=== PATIENT | female | born 1985 | race Caucasian/White ===

== ENCOUNTER 2016-04-17 13:49 | Emergency (ER) | payer MEDICAID, OTHER ==
[2016-04-17 14:05] VITALS: BP 123/95
--- NOTE | 2016-04-17 14:22 | UC ---
Breast Complaint - HPI Summary HPI Summary: complaint of lump in left breast noticed it 3 days ago feels like it is moving and entire breast is painful pain increases with movement not currently LMP 04/15/16 taking naproxen with some relief denies skin changes, nipple discharge, pain or tenderness in axilla, denies fever - History of Current Complaint Hx Obtained From: Patient Breast Chief Complaint: Breast Timing: Constant Breast Pain Radiates To: Left Breast Pain Aggravating Factors: Palpation Breast Pain Alleviating Factors: Support Breast Associated Signs/Symptoms: Nodule/Mass - Additional Pertinent History Primary Care Physician: TOYA - Allergy/Home Medications Allergies/Adverse Reactions: Allergies Allergy/AdvReac Type Severity Reaction Status Date / Time Morphine Allergy Intermediate Hives Verified 04/17/16 14:07 Home Medications: Home Medications Canagliflozin (NF) [Invokana (NF)] 1 tab PO DAILY 04/17/16 [History Confirmed ] Naproxen TAB* [Naprosyn TAB*] 04/17/16 [History] PMH/Surg Hx/FS Hx/Imm Hx Previously Healthy: Yes Endocrine History Of: Reports: Diabetes - TYPE II, Dyslipidemia Denies: Thyroid Disease Cardiovascular History Of: Reports: Hypertension Denies: Cardiac Disorders, Pacemaker/ICD, Congestive Heart Failure Respiratory History Of: Denies: COPD, Asthma GI/ History Of: Reports: Gall Bladder Disease - s/p cholecystectomy, Kidney Stones Denies: Ulcer, Renal Disease Neurological History Of: Reports: Migraine - Surgical History Surgical History: Yes Surgery Procedure, Year, and Place: GENE 2003 [facility] [place], [place]. LUMBAR laminectomy L5 r/t degenerative disc disease 2006,. SEPTOPLASTY 2012 [place]. Mass remocal right bicep 01/2016. Lap appendectomy - Family History Known Family History: Positive: None Family History: R & n/C - Social History Lives: With Family Alcohol Use: Occasionally Alcohol Amount: Weekends only Substance Use Type: None Smoking Status (MU): Current Every Day Smoker Type: Cigarettes Amount Used/How Often: 3-4 CIG/DAY Length of Time of Smoking/Using Tobacco: 5 years Have You Smoked in the Last Year: No When Did the Patient Quit Smoking/Using Tobacco: 3 years Household Exposure Type: Cigarettes Cessation Counseling: Patient Advised to Stop - Immunization History Most Recent Influenza Vaccination: 2013 Most Recent Tetanus Shot: 4 years ago?? Most Recent Pneumonia Vaccination: 2016 Review of Systems Constitutional: Negative Skin: Other - brest lump Eyes: Negative ENT: Negative Respiratory: Negative Cardiovascular: Negative Gastrointestinal: Negative Genitourinary: Negative Motor: Negative Neurovascular: Negative Musculoskeletal: Negative Neurological: Negative Psychological: Negative All Other Systems Reviewed And Are Negative: Yes Physical Exam Triage Information Reviewed: Yes Appearance: No Pain Distress, Well-Nourished Vital Signs: Initial Vital Signs Temp 98.5 F 04/17/16 14:03 Pulse 85 04/17/16 14:03 Resp 18 04/17/16 14:03 BP 123/95 04/17/16 14:03 Pulse Ox 100 04/17/16 14:03 Vital Signs Reviewed: Yes Eyes: Positive: Conjunctiva Clear ENT: Positive: Pharynx normal, TMs normal. Negative: Nasal congestion Neck: Positive: No Lymphadenopathy Respiratory: Positive: Lungs clear, Normal breath sounds, No respiratory distress Cardiovascular: Positive: RRR, No Murmur, Pulses Normal Abdomen Description: Positive: Nontender, Soft Bowel Sounds: Positive: Present Musculoskeletal: Positive: No Edema Neurological: Positive: Alert Skin: Positive: Other - left breast - 5:00 position small 1x1cm smooth lump in breast negative for nipple discharge, skin warm, smooth and dry no left axilla tenderness Breast Pain Course/Dx - Course Course Of Treatment: exam completed. most likely cystic in nature d/t tenderness, smooth and moveable mass. will have pt take NSAIDS and followup with PCP for scheduling an ultrasound - Differential Diagnoses Differential Diagnosis/HQI/PQRI: Breast Abscess, Breast Mass, Mastitis - Diagnoses Provider Diagnoses: Breast lump in female Discharge - Discharge Plan Condition: Stable Disposition: HOME Patient Education Materials: Breast Mass (ED) Referrals: Natalia Vega MD [Primary Care Provider] - [facility] [Outside] Additional Instructions: You need and ultrasound of your breast please call your primary care physician so an ultrasound can be scheduled for you. Increase fluids and rest Take acetaminophen or ibuprofen for fever or pain Please review your discharge instructions. If your symptoms do not improve please call your primary care provider or return to urgent care.
== END 2016-04-17 14:45 | disposition home or self-care (01) ==
LOC: UCEAST 13:49
DX: N63 Unspecified lump in breast (principal); E11.9 Type 2 diabetes mellitus without complications; F17.210 Nicotine dependence, cigarettes, uncomplicated; Z88.5 Allergy status to narcotic agent
CPT/HCPCS: 99211; G0463

== ENCOUNTER 2016-06-03 15:53 | Emergency (ER) | payer OTHER ==
[2016-06-03 16:01] VITALS: BP 157/92
--- NOTE | 2016-06-03 16:19 | UC ---
Skin Complaint HPI - HPI Summary HPI Summary: Coworker has ringworm. Over the past week, has developed small, itchy, scaly round rashes on arms. Was told at work she had to be out for the next day until she was on medication for at least 24 hours. - History of Current Complaint Chief Complaint: UCSkin Time Seen by Provider: 06/03/16 16:09 Stated Complaint: RASH Hx Obtained From: Patient Hx Last Menstrual Period: 06/02/16 ?: No Onset/Duration: Gradual Onset, Lasting Days Skin Exposure Onset/Duration: Days Ago Timing: Constant Onset Severity: Mild Current Severity: Mild Location: Discrete Character: Raised Aggravating: Touch Alleviating: Nothing Associated Signs & Symptoms: Positive: Rash Related History: Other: - exposed to tinea - Allergy/Home Medications Allergies/Adverse Reactions: Allergies Allergy/AdvReac Type Severity Reaction Status Date / Time Morphine Allergy Intermediate Hives Verified 04/17/16 14:07 Review of Systems Constitutional: Negative Skin: Rash Eyes: Negative ENT: Negative Respiratory: Negative Cardiovascular: Negative Gastrointestinal: Negative Genitourinary: Negative Motor: Negative Neurovascular: Negative Musculoskeletal: Negative Neurological: Negative Psychological: Negative All Other Systems Reviewed And Are Negative: Yes PMH/Surg Hx/FS Hx/Imm Hx Endocrine History Of: Reports: Diabetes - TYPE II, Dyslipidemia Denies: Thyroid Disease Cardiovascular History Of: Reports: Hypertension Denies: Cardiac Disorders, Pacemaker/ICD, Congestive Heart Failure Respiratory History Of: Denies: COPD, Asthma GI/ History Of: Reports: Gall Bladder Disease - s/p cholecystectomy, Kidney Stones Denies: Ulcer, Renal Disease Neurological History Of: Reports: Migraine - Surgical History Surgical History: Yes Surgery Procedure, Year, and Place: GENE 2003 [facility] [place], [place]. LUMBAR laminectomy L5 r/t degenerative disc disease 2006,. SEPTOPLASTY 2013 [place]. Mass remocal right bicep 01/2016. Lap appendectomy - Family History Known Family History: Positive: Hypertension - Social History Occupation: Employed Full-time Alcohol Use: Occasionally Alcohol Amount: Weekends only Substance Use Type: None Smoking Status (MU): Current Every Day Smoker Type: Cigarettes Amount Used/How Often: 3-4 CIG/DAY Length of Time of Smoking/Using Tobacco: 5 years Have You Smoked in the Last Year: No When Did the Patient Quit Smoking/Using Tobacco: 3 years Household Exposure Type: Cigarettes - Immunization History Most Recent Influenza Vaccination: 2013 Most Recent Tetanus Shot: 4 years ago?? Most Recent Pneumonia Vaccination: 2016 Physical Exam Triage Information Reviewed: Yes Appearance: Well-Appearing, No Pain Distress, Obese Vital Signs: Initial Vital Signs Temp 98.2 F 06/03/16 15:58 Pulse 99 06/03/16 15:58 Resp 16 06/03/16 15:58 BP 157/92 06/03/16 15:58 Pulse Ox 100 06/03/16 15:58 Vital Signs Reviewed: Yes Eye Exam: Normal Eyes: Positive: Conjunctiva Clear ENT Exam: Normal ENT: Positive: Normal ENT inspection, Hearing grossly normal, Pharynx normal, TMs normal Dental Exam: Normal Neck exam: Normal Neck: Positive: Supple, Nontender, No Lymphadenopathy Respiratory Exam: Normal Respiratory: Positive: Chest non-tender, Lungs clear, Normal breath sounds, No respiratory distress, No accessory muscle use Cardiovascular Exam: Normal Cardiovascular: Positive: RRR, No Murmur Musculoskeletal Exam: Normal Neurological Exam: Normal Psychological Exam: Normal Skin Exam: Other - 4 round, scaly areas on L arm between 1 and 2 cm, 2 regions on R upper arm, one 2cm the other larger and irregular Course/Dx - Diagnoses Provider Diagnoses: tinea corporis Discharge - Discharge Plan Condition: Stable Disposition: HOME Prescriptions: Fluconazole 100 MG TAB* [Diflucan 100 MG TAB*] 200 mg PO ONCE #4 tab Patient Education Materials: Tinea Corporis (ED) Forms: *Work Release Referrals: Zaid DIETZ,Aliya Franklin [Primary Care Provider] - If Needed Additional Instructions: I recommend you use an [id number]-cxeppze antifungal cream (such as clotrimazole or terbinafine) twice daily on the affected areas for the next 2 weeks. See your primary care provider or return here if you have persistent or worsening symptoms.
== END 2016-06-03 16:18 | disposition home or self-care (01) ==
LOC: UCEAST 15:53
DX: B35.4 Tinea corporis (principal); Z88.5 Allergy status to narcotic agent; F17.210 Nicotine dependence, cigarettes, uncomplicated
CPT/HCPCS: 99212; G0463

== ENCOUNTER 2016-09-19 19:27 | Emergency (ER) | payer MEDICAID, OTHER ==
[2016-09-19] MEDS ORDERED: Aspirin Low Dose CHEW TAB* 81 MG PO ONE (19:48)
--- NOTE | 2016-09-19 20:29 | RAD ---
INDICATION: Chest pain and LEFT arm numbness. COMPARISON: October 25, 2015 CT abdomen. June 07, 2015 chest radiograph TECHNIQUE: Dual energy PA and routine lateral views of the chest were obtained. REPORT: Clear lungs and pleural spaces. Negative for pneumothorax. The heart, pulmonary vasculature, and mediastinal contours are unremarkable. Unremarkable osseous structures and soft tissue contours. IMPRESSION: No evidence for acute intrathoracic disease.
[2016-09-19] MEDS ORDERED: Ketorolac INJ* 30 MG/ML 1 ML VIAL IV PUSH ONE (20:37)
[2016-09-19 20:44] VITALS: BP 126/92
[2016-09-19 20:44] LABS: Hematocrit 41 % (35-47); Mean Corpuscular HGB Conc 34 g/dl (31-36); Mean Corpuscular Hemoglobin 32 pg (27-31); Mean Corpuscular Volume 93 fL (80-97); Mean Platelet Volume 9 um3 (7.4-10.4); Red Blood Count 4.41 10^6/ul (4.0-5.4); Red Cell Distribution Width 13 % (10.5-15); White Blood Count 12.9 10^3/ul (3.5-10.8)
[2016-09-19 21:00] LABS: ALT 37 U/L (7-52); AST 23 U/L (13-39); Albumin 4.1 g/dL (3.2-5.2); Alkaline Phosphatase 76 U/L (34-104); Anion Gap 7 mmol/L (2-11); BUN/Creatinine Ratio 11.7 (8-20); Blood Urea Nitrogen 9 mg/dL (6-24); CO2 Carbon Dioxide 24 mmol/L (22-32); Calcium 9.5 mg/dL (8.6-10.3); Chloride 103 mmol/L (101-111); Creatine Kinase 80 U/L (10-223); EGFR African American 112.4 (>60); EGFR Non-African American 87.4 (>60); Globulin 3.3 g/dL (2-4); Glucose 179 mg/dL (70-100); Potassium 3.8 mmol/L (3.5-5.0); Sodium 134 mmol/L (133-145); Total Protein 7.4 g/dL (6.4-8.9)
--- NOTE | 2016-09-19 21:12 | ED ---
Adeline Coats Thomas, scribed for Demario Alvarado MD on 09/19/16 at 1952 . HPI Chest Pain - HPI Summary HPI Summary: The pt is a 31 y/o F presenting to the ED c/o CP that began today at 18:20. The CP is located in the L side of the chest and is rated 10/10. The pt describes the pain as "heavy", and the pain has been constant since it began. The pt additionally c/o L arm pain. The pain is not worsened by movement or by breathing. After the CP began, the pt took her blood pressure medication Lisinopril. She has not taken any other medications at this time. SHx: 2 cigarettes per day. PMHx: HTN, DM. She is allergic to morphine. - History of Current Complaint Chief Complaint: EDChestPainROMI Time Seen by Provider: 09/19/16 19:41 Hx Obtained From: Patient Onset/Duration: Started Hours Ago - started 18:20 today, Still Present Timing: Constant Current Severity: Severe Pain Intensity: 10 Chest Pain Location: Discrete at: - L side of chest Chest Pain Radiates: Yes Chest Pain Radiates To:: Arm Character: Heaviness Aggravating Factor(s): Nothing, Other: - NEG: breathing, movement Alleviating Factor(s): Nothing - Additional Pertinent History Primary Care Physician: TOYA - Allergy/Home Medications Allergies/Adverse Reactions: Allergies Allergy/AdvReac Type Severity Reaction Status Date / Time Morphine Allergy Intermediate Hives Verified 09/19/16 19:28 PMH/Surg Hx/FS Hx/Imm Hx Previously Healthy: No Endocrine/Hematology History: Reports: Hx Diabetes - TYPE II Denies: Hx Thyroid Disease Cardiovascular History: Reports: Hx Hypertension Denies: Hx Congestive Heart Failure, Hx Pacemaker/ICD Respiratory History: Denies: Hx Asthma, Hx Chronic Obstructive Pulmonary Disease (COPD) GI History: Reports: Hx Gall Bladder Disease - s/p cholecystectomy, Other GI Disorders - GALL STONES Denies: Hx Ulcer History: Reports: Hx Kidney Stones Denies: Hx Renal Disease Musculoskeletal History: Reports: Hx Back Problems, Hx Orthopedic Injury Denies: Hx Arthritis, Hx Osteoporosis Sensory History: Denies: Hx Contacts or Glasses, Hx Hearing Aid Opthamlomology History: Denies: Hx Contacts or Glasses Neurological History: Reports: Hx Headaches, Hx Migraine Psychiatric History: Denies: Hx Eating Disorder, Hx Panic Disorder, Hx of Violent Episodes Against Others - Cancer History Cancer Type, Location and Year: Has High blood sugar that they are watching; not classified as diabetic at this time. - Surgical History Surgery Procedure, Year, and Place: G[place] 2003 [facility] [place]. LUMBAR laminectomy L5 r/t degenerative disc disease 2006,. SEPTOPLASTY 2012 [place]. Mass remocal right bicep 01/2016. Lap appendectomy Hx Anesthesia Reactions: No Infectious Disease History: No Infectious Disease History: Denies: Hx Clostridium Difficile, Hx Hepatitis, Hx Human Immunodeficiency Virus (HIV), Hx of Known/Suspected MRSA, Hx Shingles, Hx Tuberculosis, Hx Known/ Suspected VRE, Hx Known/Suspected VRSA, History Other Infectious Disease, Traveled Outside the [place] in Last 30 Days - Family History Known Family History: Positive: Hypertension - Social History Alcohol Use: Occasionally Alcohol Amount: Weekends only Hx Substance Use: No Substance Use Type: Reports: None Hx Tobacco Use: Yes Smoking Status (MU): Current Every Day Smoker Type: Cigarettes Amount Used/How Often: 3-4 CIG/DAY Length of Time of Smoking/Using Tobacco: 5 years Have You Smoked in the Last Year: No Review of Systems Constitutional: Negative Eyes: Negative ENT: Negative Positive: Chest Pain - constant, "heavy", began 18:20 today Respiratory: Negative Gastrointestinal: Negative Genitourinary: Negative Positive: Other - L arm pain Skin: Negative Neurological: Negative Psychological: Normal All Other Systems Reviewed And Are Negative: Yes Physical Exam Triage Information Reviewed: Yes Vital Signs On Initial Exam: Initial Vitals Temp Pulse Resp BP Pulse Ox 99.2 F 132 24 149/95 99 09/19/16 19:28 09/19/16 19:28 09/19/16 19:28 09/19/16 19:28 09/19/16 19:28 Vital Signs Reviewed: Yes Appearance: Positive: Pain Distress - mild discomfort, Obese Skin: Positive: Warm Head/Face: Positive: Normal Head/Face Inspection Eyes: Positive: SHERYL ENT: Positive: Hearing grossly normal Neck: Positive: Supple Respiratory/Lung Sounds: Positive: Clear to Auscultation, Breath Sounds Present Cardiovascular: Positive: RRR Abdomen Description: Positive: Nontender, Soft Bowel Sounds: Positive: Present Musculoskeletal: Positive: Strength/ROM Intact Neurological: Positive: Sensory/Motor Intact, Normal Gait Psychiatric: Positive: Affect/Mood Appropriate Diagnostics - Vital Signs Vital Signs Temp Pulse Resp BP Pulse Ox 09/19/16 19:28 99.2 F 132 24 149/95 99 - Laboratory Lab Results: Lab Results 09/19/16 09/19/16 09/19/16 Range/Units 20:34 20:34 20:34 WBC 12.9 H (3.5-10.8) 10^3/ul RBC 4.41 (4.0-5.4) 10^6/ul Hgb 14.0 (12.0-16.0) g/dl Hct 41 (35-47) % MCV 93 (80-97) fL MCH 32 H (27-31) pg MCHC 34 (31-36) g/dl RDW 13 (10.5-15) % Plt Count 316 (150-450) 10^3/ul MPV 9 (7.4-10.4) um3 Neut % (Auto) 66.6 (38-83) % Lymph % (Auto) 22.4 L (25-47) % Ness % (Auto) 4.7 (1-9) % Eos % (Auto) 5.5 (0-6) % Baso % (Auto) 0.8 (0-2) % Absolute Neuts (auto) 8.6 H (1.5-7.7) 10^3/ul Absolute Lymphs (auto) 2.9 (1.0-4.8) 10^3/ul Absolute Monos (auto) 0.6 (0-0.8) 10^3/ul Absolute Eos (auto) 0.7 H (0-0.6) 10^3/ul Absolute Basos (auto) 0.1 (0-0.2) 10^3/ul Absolute Nucleated RBC 0.01 10^3/ul Nucleated RBC % 0.1 INR (Anticoag Therapy) (0.89-1.11) D-Dimer, Quantitative (Less Than 230) ng/mL Sodium 134 (133-145) mmol/L Potassium 3.8 (3.5-5.0) mmol/L Chloride 103 (101-111) mmol/L Carbon Dioxide 24 (22-32) mmol/L Anion Gap 7 (2-11) mmol/L BUN 9 (6-24) mg/dL Creatinine 0.77 (0.51-0.95) mg/dL Est GFR ( Amer) 112.4 (>60) Est GFR (Non-Af Amer) 87.4 (>60) BUN/Creatinine Ratio 11.7 (8-20) Glucose 179 H (70-100) mg/dL Lactic Acid 1.7 (0.5-2.0) mmol/L Calcium 9.5 (8.6-10.3) mg/dL Total Bilirubin 0.20 (0.2-1.0) mg/dL AST 23 (13-39) U/L ALT 37 (7-52) U/L Alkaline Phosphatase 76 (34-104) U/L Total Creatine Kinase 80 (10-223) U/L Troponin I 0.00 (<0.04) ng/mL Total Protein 7.4 (6.4-8.9) g/dL Albumin 4.1 (3.2-5.2) g/dL Globulin 3.3 (2-4) g/dL Albumin/Globulin Ratio 1.2 (1-3) 09/19/16 Range/Units 20:34 WBC (3.5-10.8) 10^3/ul RBC (4.0-5.4) 10^6/ul Hgb (12.0-16.0) g/dl Hct (35-47) % MCV (80-97) fL MCH (27-31) pg MCHC (31-36) g/dl RDW (10.5-15) % Plt Count (150-450) 10^3/ul MPV (7.4-10.4) um3 Neut % (Auto) (38-83) % Lymph % (Auto) (25-47) % Ness % (Auto) (1-9) % Eos % (Auto) (0-6) % Baso % (Auto) (0-2) % Absolute Neuts (auto) (1.5-7.7) 10^3/ul Absolute Lymphs (auto) (1.0-4.8) 10^3/ul Absolute Monos (auto) (0-0.8) 10^3/ul Absolute Eos (auto) (0-0.6) 10^3/ul Absolute Basos (auto) (0-0.2) 10^3/ul Absolute Nucleated RBC 10^3/ul Nucleated RBC % INR (Anticoag Therapy) 0.91 (0.89-1.11) D-Dimer, Quantitative < 200 (Less Than 230) ng/mL Sodium (133-145) mmol/L Potassium (3.5-5.0) mmol/L Chloride (101-111) mmol/L Carbon Dioxide (22-32) mmol/L Anion Gap (2-11) mmol/L BUN (6-24) mg/dL Creatinine (0.51-0.95) mg/dL Est GFR ( Amer) (>60) Est GFR (Non-Af Amer) (>60) BUN/Creatinine Ratio (8-20) Glucose (70-100) mg/dL Lactic Acid (0.5-2.0) mmol/L Calcium (8.6-10.3) mg/dL Total Bilirubin (0.2-1.0) mg/dL AST (13-39) U/L ALT (7-52) U/L Alkaline Phosphatase (34-104) U/L Total Creatine Kinase (10-223) U/L Troponin I (<0.04) ng/mL Total Protein (6.4-8.9) g/dL Albumin (3.2-5.2) g/dL Globulin (2-4) g/dL Albumin/Globulin Ratio (1-3) Result Diagrams: 09/19/16 20:34 09/19/16 20:34 Lab Statement: Any lab studies that have been ordered have been reviewed, and results considered in the medical decision making process. - Radiology CXR Xray Interpretation: No Acute Changes - No evidence for acute intrathoracic disease Radiology Interpretation Completed By: Radiologist - EKG 19:31 Cardiac Rate: Tachycardia - 116 BPM EKG Interpretation: Sinus Tachycardia at 116 bpm. Re-Evaluation - Re-Evaluation First Eval Change: Unchanged 00:09 Re-Evaluation Time: 00:09 - results d/w pt Change: Improved Chest Pain Course/Dx - Diagnoses Provider Diagnoses: Chest pain Discharge - Discharge Plan Condition: Stable Disposition: HOME Patient Education Materials: Chest Pain (ED) Referrals: Zaid DIETZ,Aliya Franklin [Primary Care Provider] - 3 Days The documentation as recorded by the Adeline soto Thomas accurately reflects the service I personally performed and the decisions made by , Demario Alvarado MD.
[2016-09-19] MEDS ORDERED: HYDROmorphone* 1 MG/ML 1 ML SYR IV SLOW PU ONE (21:29)
== END 2016-09-20 00:16 | disposition home or self-care (01) ==
LOC: ED 19:27
DX: R07.9 Chest pain, unspecified (principal); F17.210 Nicotine dependence, cigarettes, uncomplicated; M79.602 Pain in left arm
CPT/HCPCS: 36415; 71020; 80053; 82550; 83605; 84484; 84702; 85025; 85379; 85610; 93005; 99282; A9270-GY; J1170; J1885

== ENCOUNTER 2016-11-07 12:40 | Emergency (ER) | payer OTHER ==
[2016-11-07 12:48] VITALS: BP 150/108
--- NOTE | 2016-11-07 12:51 | UC ---
Neck Pain HPI - HPI Summary HPI Summary: has recently had allergy c/o but has not been sick, no fevers, chills, night sweats, or weight loss---has a swollen area on her posterior neck - History of Current Complaint Chief Complaint: UCGeneralIllness Stated Complaint: LUMP ON BACK OF NECK Time Seen by Provider: 11/07/16 12:50 Hx Obtained From: Patient Hx Last Menstrual Period: 11/17/16 ?: No Onset/Duration Of Injury/Symptoms: Days - 1 Mechanism Of Injury: No Known Trauma Timing: Constant Onset/Duration: Sudden Onset Severity: Mild Pain Intensity: 1 Pain Scale Used: 0-10 Numeric Location: Discrete At: Aggravating Factors: Nothing Alleviating Factors: Nothing Associated Signs & Symptoms: Positive: Negative - Allergies/Home Medications Allergies/Adverse Reactions: Allergies Allergy/AdvReac Type Severity Reaction Status Date / Time Morphine Allergy Intermediate Hives Verified 11/07/16 12:43 PMH/Surg Hx/FS Hx/Imm Hx Previously Healthy: No Cardiovascular History: Hypertension Neurological History: Migraine - Surgical History Surgical History: Yes Surgery Procedure, Year, and Place: GENE 2004 [facility]. LUMBAR laminectomy L5 r/t degenerative disc disease 2006,. SEPTOPLASTY 2013 [place]. Mass removal right bicep 01/2016. Lap appendectomy - Family History Known Family History: Positive: Hypertension - Social History Occupation: Employed Full-time Lives: With Family Alcohol Use: Occasionally Alcohol Amount: Weekends only Substance Use Type: None Smoking Status (MU): Current Every Day Smoker Type: Cigarettes Amount Used/How Often: 3-4 CIG/DAY Length of Time of Smoking/Using Tobacco: 5 years Have You Smoked in the Last Year: No When Did the Patient Quit Smoking/Using Tobacco: 3 years Household Exposure Type: Cigarettes - Immunization History Most Recent Influenza Vaccination: 2016 Most Recent Tetanus Shot: 4 years ago?? Most Recent Pneumonia Vaccination: 2016 Review Of Systems Constitutional: Positive: Negative Skin: Positive: Negative Eyes: Positive: Negative ENT: Positive: Negative Respiratory: Positive: Negative Cardiovascular: Positive: Negative Gastrointestinal: Positive: Negative Genitourinary: Positive: Negative Musculoskeletal: Positive: Arthralgia - neck pain from single swollen tender lymph gland Neurological: Positive: Negative Psychological: Positive: Negative All Other Systems Reviewed And Are Negative: Yes Physical Exam Triage Information Reviewed: Yes Appearance: Well-Appearing, No Pain Distress, Well-Nourished Vital Signs: Initial Vital Signs Temp 99.0 F 11/07/16 12:45 Pulse 88 11/07/16 12:45 Resp 16 11/07/16 12:45 BP 150/108 11/07/16 12:45 Pulse Ox 100 11/07/16 12:45 Vital Signs Reviewed: Yes Eye Exam: Normal Eyes: Positive: Conjunctiva Clear ENT Exam: Normal ENT: Positive: Normal ENT inspection, Hearing grossly normal, TMs normal. Negative: Nasal congestion, Nasal drainage, Trismus, Muffled/hoarse voice Neck exam: Normal Neck: Positive: Supple, Nontender, Enlarged Nodes @ - posterior left side of neck Respiratory Exam: Normal Respiratory: Positive: Chest non-tender, No respiratory distress, No accessory muscle use Cardiovascular Exam: Normal Cardiovascular: Positive: RRR, Pulses Normal, Brisk Capillary Refill Musculoskeletal Exam: Normal Musculoskeletal: Positive: Strength Intact, ROM Intact, No Edema Neurological Exam: Normal Neurological: Positive: Alert, Muscle Tone Normal Psychological Exam: Normal Skin Exam: Normal Neck Pain Course/Dx - Course Course Of Treatment: tylenol, ibuprofen, follow with pcp or return should swelling worsen or remains for 4 weeks total - Differential Dx/Diagnosis Differential Dx/HQI/PQRI: Adenitis, Sprain, Strain Provider Diagnoses: posterior cervical lympadenopathy Discharge - Discharge Plan Condition: Stable Disposition: HOME Patient Education Materials: Lymphadenopathy (ED) Referrals: Alan Looney MD [Primary Care Provider] - 12/06/16
== END 2016-11-07 13:09 | disposition home or self-care (01) ==
LOC: UCEAST 12:40
DX: R59.1 Generalized enlarged lymph nodes (principal); I10 Essential (primary) hypertension; G43.909 Migraine, unspecified, not intractable, without status migrainosus; Z90.49 Acquired absence of other specified parts of digestive tract; Z88.5 Allergy status to narcotic agent; Z87.891 Personal history of nicotine dependence
CPT/HCPCS: 99211; G0463

== ENCOUNTER 2016-11-19 20:58 | Emergency (ER) | payer OTHER ==
[2016-11-19] MEDS ORDERED: Fluticasone NASAL SPRAY 50MCG* 16 gm SPRAY BTL BOTH NARES ONE (23:14)
[2016-11-19] MEDS ORDERED: Ketorolac INJ* 60 MG/2 ML VIAL IM ONE (23:15)
--- NOTE | 2016-11-19 23:22 | ED ---
Throat Pain/Nasal Congestion - HPI Summary HPI Summary: Patient presents to the ED with CC of left sided 10/10 sinus pressure and pain. ENT MD is Dr. Marley. She states she has been awaiting surgery and she has been having this pain x 1 month without relief. She has been on abx for over 1 month. She was placed on prednisone briefly 2 months ago. She states the pressure and sxs continue to worsen and has had an MRI completed 3 weeks ago. Denies rhinnorhea. Denies facial trauma, sweats, chills or fevers. She has been using ice and heat both intermittently without relief. Denies visual disturbances, denies neck pain. She states the pain is radiating up into the bilateral ears. Otherwise healthy and takes no medications. - History of Current Complaint Chief Complaint: EDHeadache Time Seen by Provider: 11/19/16 22:31 Hx Obtained From: Patient Onset/Duration: Gradual Onset Severity: Severe Associated Signs And Symptoms: Positive: Sinus Discomfort, Nasal Discharge - Epiglottits Risk Factors Epiglottis Risk Factors: Negative - Allergies/Home Medications Allergies/Adverse Reactions: Allergies Allergy/AdvReac Type Severity Reaction Status Date / Time Morphine Allergy Intermediate Hives Verified 11/19/16 21:04 PMH/Surg Hx/FS Hx/Imm Hx Previously Healthy: Yes Endocrine/Hematology History: Reports: Hx Diabetes - TYPE II Denies: Hx Thyroid Disease Cardiovascular History: Reports: Hx Hypertension Denies: Hx Congestive Heart Failure, Hx Pacemaker/ICD Respiratory History: Denies: Hx Asthma, Hx Chronic Obstructive Pulmonary Disease (COPD) GI History: Reports: Hx Gall Bladder Disease - s/p cholecystectomy, Other GI Disorders - GALL STONES Denies: Hx Ulcer History: Reports: Hx Kidney Stones Denies: Hx Renal Disease Musculoskeletal History: Reports: Hx Back Problems, Hx Orthopedic Injury Denies: Hx Arthritis, Hx Osteoporosis Sensory History: Denies: Hx Contacts or Glasses, Hx Hearing Aid Opthamlomology History: Denies: Hx Contacts or Glasses Neurological History: Reports: Hx Headaches, Hx Migraine Psychiatric History: Denies: Hx Eating Disorder, Hx Panic Disorder, Hx of Violent Episodes Against Others - Cancer History Cancer Type, Location and Year: Has High blood sugar that they are watching; not classified as diabetic at this time. - Surgical History Surgery Procedure, Year, and Place: GENE 2003 [facility] [place]. LUMBAR laminectomy L5 r/t degenerative disc disease 2006,. SEPTOPLASTY 2013 [place]. Mass removal right bicep 01/2016. Lap appendectomy Hx Anesthesia Reactions: No - Immunization History Hx Pertussis Vaccination: No Immunizations Up to Date: Unable to Obtain/Confirm Infectious Disease History: No Infectious Disease History: Denies: Hx Clostridium Difficile, Hx Hepatitis, Hx Human Immunodeficiency Virus (HIV), Hx of Known/Suspected MRSA, Hx Shingles, Hx Tuberculosis, Hx Known/ Suspected VRE, Hx Known/Suspected VRSA, History Other Infectious Disease, Traveled Outside the [place] in Last 30 Days - Family History Known Family History: Positive: Hypertension - Social History Occupation: Employed Part-time Lives: With Family Alcohol Use: Occasionally Alcohol Amount: Weekends only Hx Substance Use: No Substance Use Type: Reports: None Hx Tobacco Use: Yes Smoking Status (MU): Current Every Day Smoker Type: Cigarettes Amount Used/How Often: 3-4 CIG/DAY Length of Time of Smoking/Using Tobacco: 5 years Have You Smoked in the Last Year: No Review of Systems Constitutional: Negative Negative: Fever, Chills, Fatigue Eyes: Negative Negative: Blurred Vision, Diplopia Positive: Nasal Discharge Cardiovascular: Negative Respiratory: Negative Negative: Shortness Of Breath, Cough Negative: Nausea Genitourinary: Negative Positive: no symptoms reported, see HPI Negative: Headache, Weakness Psychological: Normal All Other Systems Reviewed And Are Negative: Yes Physical Exam Triage Information Reviewed: Yes Vital Signs On Initial Exam: Initial Vitals Temp Pulse Resp BP Pulse Ox 97.6 F 113 18 145/109 100 11/19/16 21:05 11/19/16 21:05 11/19/16 21:05 11/19/16 21:05 11/19/16 21:05 Vital Signs Reviewed: Yes Appearance: Positive: Pain Distress Skin: Positive: Skin Color Reflects Adequate Perfusion Head/Face: Positive: Normal Head/Face Inspection. Negative: Temporal Artery Tenderness, TMJ Tenderness Eyes: Positive: EOMI, SHERYL, Conjunctiva Clear ENT: Positive: Nasal congestion, Other Neck: Positive: Supple, No Lymphadenopathy Respiratory/Lung Sounds: Positive: Clear to Auscultation, Breath Sounds Present Cardiovascular: Positive: Pulses are Symmetrical in both Upper and Lower Extremities Musculoskeletal: Positive: Normal, Strength/ROM Intact Neurological: Positive: Speech Normal Psychiatric: Positive: Normal - [place] Coma Scale Coma Scale Total: 15 Diagnostics - Vital Signs Vital Signs Temp Pulse Resp BP Pulse Ox 11/19/16 22:30 91 132/87 99 11/19/16 22:23 91 98 11/19/16 22:22 132/86 11/19/16 21:05 97.6 F 113 18 145/109 100 - Laboratory Lab Statement: Any lab studies that have been ordered have been reviewed, and results considered in the medical decision making process. EENT Course/Dx - Course Course Of Treatment: Patient evaluated for possible sinusitis symtoms. She states she has had chronic sinusitis and is a patient of Dr. Marley. She is here for worsening pain in the right maxillary sinus which feels like a pressure at 10/10 pain. She has had a CT scan and most recently an MRI. She states she is awaiting surgery, although she is unable to tell me which surgery. Denies any drainage, but notes to post-nasal drip. She has been on several courses of antibiotics without improvement. Ice and heat intermittently without improvement. She is given prednisone for relief and flonase. She will not be prescribed a pain medication, d/t multiple dispense of pain medication from 2 different providers, one being recently filled a few days prior to visit. She will follow up with Dr. Marley, and she is given our ENT physycian number as well. Toradol injection prior to discharge. - Differential Diagnoses Differential Diagnoses: Allergic Rhinitis, Pain of Unknown Etiology, Polyps, Sinusitis - Diagnoses Provider Diagnoses: Chronic sinusitis Discharge - Discharge Plan Condition: Stable Disposition: HOME Prescriptions: predniSONE TAB* [Deltasone TAB*] 50 mg PO DAILY #5 tab MDD 1 Patient Education Materials: Rhinosinusitis (ED), Warm Compress or Soak (ED) Referrals: Alan Looney MD [Primary Care Provider] - Marko Reinoso MD [Medical Doctor] - Additional Instructions: Follow up with Dr. Reinoso Prednisone daily for 5 days Warm compresses to the area Flonase twice daily for congestion
[2016-11-20 00:01] VITALS: BP 120/75
== END 2016-11-20 00:02 | disposition home or self-care (01) ==
LOC: ED 20:58
DX: J32.9 Chronic sinusitis, unspecified (principal); F17.210 Nicotine dependence, cigarettes, uncomplicated
CPT/HCPCS: 96372; 99282; J1885

== ENCOUNTER 2017-03-15 21:31 | Emergency (ER) | payer OTHER ==
[2017-03-15 21:48] VITALS: BP 142/90
--- NOTE | 2017-03-15 22:29 | UC ---
Adeline Coats Thomas, scribed for Juan Villa MD on 03/15/17 at 2153 . Palpitation/Dysrhythmia HP - HPI Summary HPI Summary: The patient is a 31 year old female presenting to Urgent Care complaining of palpitations characterized as racing that began about an hour ago when the patient was driving in the car. The patient says I was driving home when my right arm began to feel warm. My heart started to race, then it stopped racing, but then it began to race again. The patient is tachycardic at urgent care. Patient additionally complains of neck pain and shortness of breath. She feels as if she is about to pass out. She felt some pressure in her chest, but she denies chest pain. She has a history of panic attacks and diabetes. - History of Current Complaint Chief Complaint: UCCardiac Stated Complaint: HEART RACING Time Seen by Provider: 03/15/17 21:45 Hx Obtained From: Patient Hx Last Menstrual Period: 03/15/17 Onset/Duration: Lasting Hours - 1, Still Present Timing: Constant Severity Currently: Moderate Pain Intensity: 0 Pain Scale Used: 0-10 Numeric Character: Fast Aggravating Factor(s): Nothing Alleviating Factor(s): Nothing Associated Signs & Symptoms: Positive: Lightheadedness, Shortness of Breath. Negative: Chest Pain - Allergy/Home Medications Allergies/Adverse Reactions: Allergies Allergy/AdvReac Type Severity Reaction Status Date / Time Morphine Allergy Intermediate Hives Verified 03/15/17 21:44 PMH/Surg Hx/FS Hx/Imm Hx Previously Healthy: No - DM, Panic attacks; NEGATIVE: HTN - Surgical History Surgical History: Yes Surgery Procedure, Year, and Place: GENE 2003 [facility] [place]. LUMBAR laminectomy L5 r/t degenerative disc disease 2006,. SEPTOPLASTY 2013 [place]. Mass removal right bicep 01/2016. Lap appendectomy - Family History Known Family History: Positive: Hypertension - Social History Alcohol Use: Occasionally Alcohol Amount: Weekends only Substance Use Type: None Smoking Status (MU): Current Every Day Smoker Type: Cigarettes Amount Used/How Often: 3-4 CIG/DAY Length of Time of Smoking/Using Tobacco: 5 years Have You Smoked in the Last Year: No When Did the Patient Quit Smoking/Using Tobacco: 3 years Household Exposure Type: Cigarettes - Immunization History Most Recent Influenza Vaccination: 2016 Most Recent Tetanus Shot: 4 years ago?? Most Recent Pneumonia Vaccination: 2016 Review of Systems Constitutional: Other - NEGATIVE: fever Respiratory: Shortness Of Breath Cardiovascular: Palpitations, Other - Chest pressure Musculoskeletal: Other: - Neck pain, left arm warmness Is Patient Immunocompromised?: No All Other Systems Reviewed And Are Negative: Yes Physical Exam Triage Information Reviewed: Yes Vital Signs: Initial Vital Signs Temp 98 F 03/15/17 21:45 Pulse 110 03/15/17 21:45 Resp 17 03/15/17 21:45 BP 142/90 03/15/17 21:45 Pulse Ox 100 03/15/17 21:45 Vital Signs Reviewed: Yes - Additional Comments VITAL SIGNS: Reviewed. GENERAL: Patient is a well-developed and nourished female who is lying comfortable in the stretcher. Patient is not in any acute respiratory distress. HEAD AND FACE: Normocephalic EYES: PERRLA, EOMI x 2. EARS: Hearing grossly intact. MOUTH: Oropharynx within normal limits. NECK: Supple, trachea is midline, no adenopathy, no JVD, no carotid bruit. CHEST: Symmetric, no tenderness at palpation LUNGS: Clear to auscultation bilaterally. No wheezing or crackles. CVS: Tachycardia, regular rhythm, S1 and S2 present, no murmurs or gallops appreciated. ABDOMEN: Soft, non-tender. Bowel sounds are normal. No abdominal abnormal pulsations. EXTREMITIES: Full ROM in all major joints, no edema, no cyanosis or clubbing. NEURO: Alert and oriented x 3. No acute neurological deficits. Speech is normal and follows commands. SKIN: Dry and warm Diagnostics - Laboratory Diagnostic Studies Completed/Ordered: EKG: Obtained at 21:39. Sinus tachycardia at 110 [address]PM. There are no ST elevations. It looks like there is a Q wave in III. There is a normal axis. Palpitations Course/Dx - Course Course Of Treatment: The patient is a 31 year old female presenting to Urgent Care complaining of palpitations characterized as racing that began about an hour ago when the patient was driving in the car. The patient says I was driving home when my right arm began to feel warm. My heart started to race, then it stopped racing, but then it began to race again. The patient is tachycardic at urgent care. Patient additionally complains of neck pain and shortness of breath. She feels as if she is about to pass out. She felt some pressure in her chest, but she denies chest pain. She has a history of panic attacks and diabetes. She is tachycardic. EKG: Obtained at 21:39. Sinus tachycardia at 110 BPM. There are no ST elevations. It looks like there is a Q wave in III. There is a normal axis. The patient will be transferred to [facility] ED via ambulance for further workup and management. The patient is diagnosed with arrhythmia and chest pain rule out ACS. I spoke over the phone with Dr. Nicole , who agrees for the transfer. The patient agrees to the transfer by ambulance. - Differential Dx/Diagnosis Differential Diagnosis/HQI/PQRI: Coronary Artery Disease, Paroxymal SVT, V-Tach Provider Diagnoses: Arrhythmia, Chest pain rule out ACS Discharge - Discharge Plan Condition: Fair Disposition: TRANS HIGHER LVL OF CARE FAC Discharge Disposition Comment: Patient will be transferred by ambulance to [facility] ED. Referrals: Alan Looney MD [Primary Care Provider] - The documentation as recorded by the Adeline soto Thomas accurately reflects the service I personally performed and the decisions made by me, Juan Villa MD.
== END 2017-03-15 22:24 | disposition short-term general hospital (02) ==
LOC: UCEAST 21:31
DX: I49.9 Cardiac arrhythmia, unspecified (principal); R07.9 Chest pain, unspecified; F41.0 Panic disorder [episodic paroxysmal anxiety]; E11.9 Type 2 diabetes mellitus without complications; Z88.5 Allergy status to narcotic agent; F17.210 Nicotine dependence, cigarettes, uncomplicated
CPT/HCPCS: 93005; 99213; G0463

== ENCOUNTER 2017-03-15 22:52 | Emergency (ER) | payer OTHER ==
--- NOTE | 2017-03-16 00:20 | ED ---
HPI Chest Pain - HPI Summary HPI Summary: Pt here w/ Lt arm burning followed by racing heart. This occurred while she was driving home from work tonight. Lasted about 15 minutes then resolved. When she arrived at her mom's, it happened again. States "I felt like my heart was going to jump out of my chest". Associated sx of chest pressure - no pain - and felt short of breath while heart was racing. She denies nausea, vomiting, diaphoresis, numbness, tingling, weakness, syncope. She denies known cardiac issues but does report she had Type 2 diabetes that was initially diagnosed as "borderline" 10 years ago but she never followed up on healthy lifestyle choices. She was dx'd within the year with full DM and trialed many oral glucose lowering medications w/o success. She is now on what she believes is lantus (?) once a day and blood glucose continues to be in the 300's+. Tonight, she drank alot of water thinking she could be dehyrated -this did not seem to help chest symptoms. Admits she had 1 Mt Dew today - less caffeine than usual. Had 2 cigarettes today - less than yesterday No supplements, cold medicine, weight loss aids, etc. Denies recent diarrhea, vomiting. She does admit to having strep throat 2 weeks ago - took PCN for 3/4 of the dose but stopped early as "she felt better". Denies hematuria and no h/o rheumatic fever. Denies chest pain or shortness of breath w/ exertion. - History of Current Complaint Chief Complaint: EDChestPainROMI Time Seen by Provider: 03/15/17 23:26 Hx Obtained From: Patient Hx Last Menstrual Period: 03/15/17 Pain Intensity: 5 - Additional Pertinent History Primary Care Physician: [id number] - Allergy/Home Medications Allergies/Adverse Reactions: Allergies Allergy/AdvReac Type Severity Reaction Status Date / Time Morphine Allergy Intermediate Hives Verified 03/15/17 21:44 PMH/Surg Hx/FS Hx/Imm Hx Previously Healthy: No - poorly controlled diabetes Endocrine/Hematology History: Reports: Hx Diabetes - TYPE II - IDDM Denies: Hx Thyroid Disease Cardiovascular History: Denies: Hx Congestive Heart Failure, Hx Hypertension - takes lisinopril 5mg for renal protection, Hx Pacemaker/ICD Respiratory History: Denies: Hx Asthma, Hx Chronic Obstructive Pulmonary Disease (COPD) GI History: Reports: Hx Gall Bladder Disease - s/p cholecystectomy, Other GI Disorders - GALL STONES Denies: Hx Ulcer History: Reports: Hx Kidney Stones Denies: Hx Renal Disease Musculoskeletal History: Reports: Hx Back Problems, Hx Orthopedic Injury Denies: Hx Arthritis, Hx Osteoporosis Sensory History: Denies: Hx Contacts or Glasses, Hx Hearing Aid Opthamlomology History: Denies: Hx Contacts or Glasses Neurological History: Reports: Hx Headaches, Hx Migraine Psychiatric History: Denies: Hx Eating Disorder, Hx Panic Disorder, Hx of Violent Episodes Against Others - Surgical History Surgery Procedure, Year, and Place: [place] [facility] [place]BAR laminectomy L5 r/t degenerative disc disease 2006,. SEPTOPLASTY 2012 [place]. Mass removal right bicep 01/2016. Lap appendectomy Hx Anesthesia Reactions: No Infectious Disease History: No Infectious Disease History: Denies: Hx Clostridium Difficile, Hx Hepatitis, Hx Human Immunodeficiency Virus (HIV), Hx of Known/Suspected MRSA, Hx Shingles, Hx Tuberculosis, Hx Known/ Suspected VRE, Hx Known/Suspected VRSA, History Other Infectious Disease, Traveled Outside the [place] in Last 30 Days - Family History Known Family History: Positive: Hypertension Family History: aunt w/ h/o CAD - no fam h/o arrhythmia - Social History Occupation: Employed Full-time Lives: With Family Alcohol Use: Occasionally Alcohol Amount: Weekends only Hx Substance Use: No Substance Use Type: Reports: None Hx Tobacco Use: Yes Smoking Status (MU): Current Some Day Smoker Type: Cigarettes Amount Used/How Often: 3-4 CIG/DAY Length of Time of Smoking/Using Tobacco: 5 years Have You Smoked in the Last Year: No Review of Systems Negative: Fever, Chills, Fatigue Eyes: Negative Negative: Photophobia, Blurred Vision, Diplopia, Drainage, Erythema ENT: Negative Negative: Dental Pain, Sore Throat, Ear Ache, Nasal Discharge Cardiovascular: Other - racing heart Negative: Chest Pain Negative: Shortness Of Breath Gastrointestinal: Negative Negative: Abdominal Pain, Vomiting, Diarrhea, Nausea Positive: no symptoms reported Musculoskeletal: Negative Negative: Arthralgia, Myalgia, Decreased ROM, Edema Skin: Negative Negative: Rash, Bruising Neurological: Negative Negative: Headache, Weakness, Paresthesia, Numbness, Syncope, Slurred Speech Psychological: Other - h/o panic attack but reports she's not stressed about anything and doesn't feel the same All Other Systems Reviewed And Are Negative: Yes Physical Exam Triage Information Reviewed: Yes Vital Signs On Initial Exam: Initial Vitals Temp Pulse Resp BP Pulse Ox 98.8 F 100 20 129/80 98 03/15/17 23:01 03/15/17 23:01 03/15/17 23:01 03/15/17 23:01 03/15/17 23:01 Vital Signs Reviewed: Yes Appearance: Positive: Well-Appearing, No Pain Distress, Well-Nourished Skin: Positive: Warm, Dry - no erythema, no ecchymosis over affected areas Head/Face: Positive: Normal Head/Face Inspection Eyes: Positive: Normal, EOMI, SHERYL, Conjunctiva Clear ENT: Positive: Normal ENT inspection, Hearing grossly normal, Pharynx normal - mucosa moist. Negative: Nasal congestion, Nasal drainage Neck: Positive: Supple, Nontender - no gross thyromegaly, No Lymphadenopathy Respiratory/Lung Sounds: Positive: Clear to Auscultation, Breath Sounds Present. Negative: Rales, Rhonchi, Wheezes Cardiovascular: Positive: Normal, RRR, S1, S2. Negative: Murmur, Rub, Leg Edema Left, Leg Edema Right Abdomen Description: Positive: Nontender, No Organomegaly, Soft Bowel Sounds: Positive: Present Musculoskeletal: Positive: Normal, Strength/ROM Intact Neurological: Positive: Normal, Sensory/Motor Intact, Alert, Oriented to Person Place, Time, CN Intact II-III Psychiatric: Positive: Normal - concerned but calm and cooperative - [place] Coma Scale Coma Scale Total: 15 Diagnostics - Vital Signs Vital Signs Temp Pulse Resp BP Pulse Ox 03/15/17 23:01 98.8 F 100 20 129/80 98 - Laboratory Result Diagrams: 03/15/17 23:55 03/15/17 23:55 Lab Statement: Any lab studies that have been ordered have been reviewed, and results considered in the medical decision making process. Re-Evaluation - Re-Evaluation First Eval Change: Improved - pt reports no arm burning nor racing heart since receiving IVF. Eating chips and drinking water w/o difficulty Chest Pain Course/Dx - Course Course Of Treatment: Pt presents w/ Lt arm burning and tachycardia episodes earlier tonight. Denies injury to the area. She does have recent h/o strep throat w/ incomplete anbx course however denies fever, chills and labs/vitals do not present w/ infectious concern. She admits to h/o palpitations in the past but has never had them this strong/pronounced and never with Lt arm pain. Her DM is poorly controlled - could be occult cardiac pathology - ECG NSR, CXR w /o cardiomegaly, labs are unremarkable for acute cardiac pathology. Pt will be signed out to Dr. Luis pending repeat troponins as she is female w/ poorly controlled DM and smokes. She will complete IVF and recheck glucose. Magnesium was also added to w/u. If she is d/c'd tonight, she may benefit from electrophysiologic evaluation. Signed out to Dr. Luis in stable condition. - Diagnoses Provider Diagnoses: Tachycardia, Poorly controlled diabetes mellitus Discharge - Discharge Plan Condition: Stable Disposition: OTHER Discharge Disposition Comment: signed out
[2017-03-16 00:23] LABS: ABS Basophils 0 10^3/ul (0-0.2); ABS Eosinophils 0.3 10^3/ul (0-0.6); ABS Lymphocytes 2.7 10^3/ul (1.0-4.8); ABS Monocytes 0.6 10^3/ul (0-0.8); ABS Neutrophils 7.4 10^3/ul (1.5-7.7); ABS Nucleated RBC 0.01 10^3/ul; Eosinophil % 2.6 % (0-6); Hematocrit 41 % (35-47); Hemoglobin 14.1 g/dl (12.0-16.0); Lymphocyte % 24.3 % (25-47); Mean Corpuscular HGB Conc 34 g/dl (31-36); Mean Corpuscular Hemoglobin 31 pg (27-31); Mean Corpuscular Volume 91 fL (80-97); Mean Platelet Volume 9 um3 (7.4-10.4); Nucleated Red Blood Cells % 0.1; Platelet Count 304 10^3/ul (150-450); Red Blood Count 4.55 10^6/ul (4.0-5.4); Red Cell Distribution Width 13 % (10.5-15); White Blood Count 10.9 10^3/ul (3.5-10.8)
[2017-03-16 00:31] LABS: INR 0.98 (0.77-1.02)
[2017-03-16 00:32] LABS: EGFR Non-African American 116.6 (>60)
[2017-03-16] MEDS ORDERED: NS 0.9% 1000 ML* 2,000 ML IV ONE (00:33)
--- NOTE | 2017-03-16 05:51 | ED ---
Ron Coats Tiffany, scribed for Alfredo Luis on 03/16/17 at 0548 . Progress - Progress Note Progress Note: Patient is stable. Re-Evaluation - Re-Evaluation First Eval Change: Improved - pt reports no arm burning nor racing heart since receiving IVF. Eating chips and drinking water w/o difficulty Course/Dx - Course Course Of Treatment: Patient will be discharged with follow up from PCP to have a stress test in 3 days. Patient is agreeable to this plan. Patient requests work note for one day. - Diagnoses Provider Diagnoses: Chest pain The documentation as recorded by the Ron soto Tiffany accurately reflects the service I personally performed and the decisions made by Janelle garcia Emmanuel.
[2017-03-16 06:24] VITALS: BP 114/86
[2017-03-16 06:41] LABS: Urine Appearance Clear; Urine Blood 2+ (Negative); Urine Color Colorless; Urine Ketones Trace (Negative); Urine Protein Negative (Negative); Urine Urobilinogen Negative (Negative)
--- NOTE | 2017-03-16 09:07 | RAD ---
Indication: Chest pain. Single frontal view of the chest performed at 2335 hours was reviewed. Comparison is made with previous exam dated September 19, 2016. No mediastinal shift is noted. Heart is of normal size and configuration. Lung calderon appear clear. IMPRESSION: NO ACTIVE CARDIOPULMONARY DISEASE IS NOTED.
== END 2017-03-16 06:24 ==
LOC: ED 22:52
DX: R00.0 Tachycardia, unspecified (principal); E11.65 Type 2 diabetes mellitus with hyperglycemia; F17.210 Nicotine dependence, cigarettes, uncomplicated; Z88.5 Allergy status to narcotic agent
CPT/HCPCS: 36415; 71010; 80053; 81003; 81015; 83605; 83735; 83880; 84484; 84702; 85025; 85379; 85610; 85730; 93005; 96360; 96361; 99282

== ENCOUNTER 2017-03-30 19:28 | Emergency (ER) | payer OTHER ==
--- NOTE | 2017-03-30 20:11 | RAD ---
INDICATION: Chest pain. COMPARISON: Comparison is made with a prior study from March 15, 2017. TECHNIQUE: A portable view of the chest was obtained. FINDINGS: Cardiac and mediastinal contours appear to be within normal limits. The lungs are underinflated and clear. No pleural effusion or pneumothorax is seen. IMPRESSION: NO EVIDENCE FOR ACUTE DISEASE.
--- OUTSIDE RECORDS SUMMARY | 2017-03-30 20:12 | XMS REPORT ---
:1985 External Reference #:[id number] Author Organization [facility] Address [address] [place] [address] Phone [phone] Care Team Providers Name Role Phone HCP given Primary Care Physician Unavailable Payers Type Date Identification Numbers Payment Provider Subscriber Commercial Effective: Policy Number: [id number] [facility] Alo Brunson 2016 [place] PayID: [id number] [address] [place] [address] Problems Date Description Provider Status Onset: 04/24/2016 Type 2 diabetes mellitus Aliya Mar PA Active Onset: 04/24/2016 Essential hypertension Aliya Mar PA Active Onset: 04/24/2016 Degenerative joint disease involving Aliya Mar PA Active multiple joints Onset: 04/24/2016 Migraine without aura, not refractory Aliya Mar PA Active Family History Date Family Member(s) Problem(s) Comments Paternal Grandfather Cancer Brain Maternal Grandfather Lung Cancer Maternal Grandmother Colon Cancer Paternal Uncles Diabetes, Nos Maternal Aunts Lung Cancer Maternal Aunts Diabetes, NOS Social History Type Date Description Comments Marital Status Single Marital Status Significant Other Occupation works at [employer] Work Status Currently Working Cigarette Use 04/24/2016 Former Cigarette Smoker Quit 03/2016 ETOH Use Occassional Alcohol Recreational Drug Use Denies Drug Use Smoking Patient is a former smoker quit in 2016 Daily Caffeine Consumes on average 1 cup of coffee per day Exercise Type/Frequency Exercises sporadically Sun Exposure Does not use sunscreen Seat Belt/Car Seat Seat Belt Use - Yes Smoke Alarms Yes smoke alarm Currently Active Patient is currently sexually active Contraceptive Methods None Allergies, Adverse Reactions, Alerts Date Description Reaction Status Severity Comments 04/24/2016 Morphine Urticaria active Moderate Medications Medication Date Status Form Strength Qnty SIG Indications Ordering Provider Amlodipine 03/29/ Active Tablets 5mg 30tabs take 1 I10 Silcoff, Besylate 2018 tablet daily Alan, in the M.D. evening for high blood pressure Lisinopril 03/18/ Active Tablets 10mg 30tabs take 1 I10 Silcoff, 2016 tablet every Alan, morning for M.D. blood pressure control Basaglar 02/08/ Active Solution 100Unit/ML 20 units Unknown Kwikpen 2016 Pen-Inject subq once daily at bedtime Januvia 02/01/ Active Tablets 50mg 30tabs 1 tab by E11.9 Kiaracoandi, 2016 mouth every Alan, day M.D. Advocate 01/26/ Active Misc 31G X 8 mm 90unit or other E11.9 Sopchak, Insulin Pen 2017 s compatable Toño, Pollok needles with D.O. [id number] victoza pens Hydrocodone- 01/14/ Active Tablets 5-325mg 30tabs 1 tablet by M54.5 Angela Looney 2016 mouth up to Alan, n every 8 M.D. hours as needed for pain Freestyle 05// Active E11.9 Hektor, Debord 2017 HERMELINDA Pisano Glucometer Freestyle /02/ Active Misc 100uni test twice Hektor, Lancets 2016 ts daily HERMELINDA Pisano Freestyle 05/02/ Active Strips 100uni test twice Silcoff, Test 2016 ts daily Bienvenido Phillips Trulicity 01/14/ Hx Solution 0.75mg/0.5 2ml 0.5ml sc E11.9 2016 - Pen-Inject ML weekly for Alan, 01/14/ diabetes M.D. 2017 Victoza 01/14/ Hx Solution 18mg/3ML 3ml 0.6 mg once E11.9 Aure, 2016 - Pen-Inject daily every Alan, 02/01/ night at M.D. 2017 bedtime for diabetes Hydrocodone- 10/02/ Hx Tablets 5-325mg 30tabs 1 tablet by M54.2 Armida Fairbanksaminophe 2016 - mouth up to Toño, n 01/01/ every 8 D.O. 2017 hours as needed for pain M54.5 Methylprednisolone 10/02/2016 - Hx TBPK 4mg 1units use as M54.2 Hektor, 10/07/2016 directed on HERMELINDA Pisano package M54.5 Onetouch Ultra 07/23/2016 - Hx Kit w/Device 1units test twice E11.9 Hektor, System 07/23/2016 a day HERMELINDA Pisano Ondansetron 07/21/2016 - Hx Tablets 4mg Unknown 10/01/2016 Dispers Clarithromycin 07/08/2016 - Hx Tablets 250mg 20tabs 1 by mouth J20.9 John 07/18/2016 twice a A. day until Klesarahy, awilda M.D. Benzonatate 07/08/2016 - Hx Capsules 200mg 30caps 1 by mouth R05 [facility] 07/18/2016 three A. times a Klepack, day and at M.D. bedtime daily, as needed cough Naproxen Sodium 05/06/2016 - Hx Capsules 220mg as Unknown 10/01/2016 directed as needed Tramadol HCL 04/24/2016 - Hx Tablets 50mg 56tabs 1-2 tabs N64.4 [facility] 10[facility]2016 by mouth HERMELINDA Pisano up to 4 times daily as needed for severe pain Invokana - Hx Tablets 100mg 30tabs once daily [facility]11.[facility], 11/22/2016 for HERMELINDA Pisano diabetes Lisinopril - Hx Tablets 5mg 30tabs 1 by mouth I10 Aure, 03/18/2017 every day Bienvenido Phillips Immunizations CPT Code Status Date Vaccine Lot # [id number] Given 01/14/2017 Influenza Virus Vaccine, Quadrivalent, Split, [id number] Preservative Free Vital Signs Date Vital Result Comment 03/29/2017 BP Systolic 117 mmHg BP Diastolic 76 mmHg BP Systolic Recheck 110 mmHg BP Diastolic Recheck 78 mmHg Heart Rate 75 /min Weight 205.00 lb 03/18/2017 BP Systolic 136 mmHg BP Diastolic 92 mmHg Heart Rate 90 /min Weight 213.00 lb 01/14/2017 BP Systolic 126 mmHg BP Diastolic 80 mmHg Height 67 inches 5'7" Weight 212.00 lb BMI (Body Mass Index) 33.2 kg/m2 12/02/2016 BP Systolic 132 mmHg BP Diastolic 85 mmHg Weight 210.00 lb with sneakers 10/02/2016 BP Systolic 125 mmHg BP Diastolic 80 mmHg Weight 206.00 lb with shoes 07/23/2016 BP Systolic 122 mmHg BP Diastolic 80 mmHg Weight 210.00 lb with sneakers 07/08/2016 BP Systolic 130 mmHg BP Diastolic 82 mmHg Body Temperature 97.0 F Weight 207.00 lb 05/07/2016 BP Systolic 114 mmHg BP Diastolic 84 mmHg 04/24/2016 BP Systolic 118 mmHg BP Diastolic 64 mmHg Height 66.5 inches 5'6.50" Weight 190.00 lb BMI (Body Mass Index) 30.2 kg/m2 Results Test Date Test Result H/L Range Note Laboratory test finding 03/18/2017 Hemoglobin A1c 9.8 Laboratory test finding 03/16/2017 Troponin-I (TnI) 0.00 ng/mL <0.04 Laboratory test finding 03/15/2017 Inr/Protime 0.98 0.77-1.02 1 Partial Thrombo Time PTT 28.2 seconds 26.0-36.3 D Dimer Quantitative < 200 ng/mL Less Than 230 2 Lactic Acid 1.3 mmol/L 0.5-2.0 3 CBC Auto Diff 03/15/2017 White Blood Count 10.9 10^3/uL High 3.5-10.8 Red Blood Count 4.55 10^6/uL 4.0-5.4 Hemoglobin 14.1 g/dL 12.0-16.0 Hematocrit 41 % 35-47 Mean Corpuscular Volume 91 fL 80-97 Mean Corpuscular Hemoglobin 31 pg 27-31 Mean Corpuscular HGB Conc 34 g/dL 31-36 Red Cell Distribution Width 13 % 10.5-15 Platelet Count 304 10^3/uL 150-450 Mean Platelet Volume 9 um3 7.4-10.4 Abs Neutrophils 7.4 10^3/uL 1.5-7.7 Abs Lymphocytes 2.7 10^3/uL 1.0-4.8 Abs Monocytes 0.6 10^3/uL 0-0.8 Abs Eosinophils 0.3 10^3/uL 0-0.6 Abs Basophils 0 10^3/uL 0-0.2 Abs Nucleated RBC 0.01 10^3/uL Granulocyte % 67.4 % 38-83 Lymphocyte % 24.3 % Low 25-47 Monocyte % 5.3 % 1-9 Eosinophil % 2.6 % 0-6 Basophil % 0.4 % 0-2 Nucleated Red Blood Cells % 0.1 Comp Metabolic Panel 03/15/2017 Sodium 132 mmol/L Low 133-145 Potassium 3.4 mmol/L Low 3.5-5.0 Chloride 101 mmol/L 101-111 Co2 Carbon Dioxide 22 mmol/L 22-32 Anion Gap 9 mmol/L 2-11 Glucose 252 mg/dL High 70-100 Blood Urea Nitrogen 8 mg/dL 6-24 Creatinine 0.60 mg/dL 0.51-0.95 BUN/Creatinine Ratio 13.3 8-20 Calcium 9.2 mg/dL 8.6-10.3 Total Protein 7.5 g/dL 6.4-8.9 Albumin 4.0 g/dL 3.2-5.2 Globulin 3.5 g/dL 2-4 Albumin/Globulin Ratio 1.1 1-3 Total Bilirubin 0.50 mg/dL 0.2-1.0 Alkaline Phosphatase 98 U/L 34-104 Alt 48 U/L 7-52 Ast 36 U/L 13-39 Egfr Non- 116.6 >60 Egfr 150.0 >60 4 Laboratory test finding 03/15/2017 Troponin-I (TnI) 0.01 ng/mL <0.04 HCG 0.68 mIU/mL 5 B-Type Natriuretic Peptide BNP 21 pg/mL 6 Magnesium 1.7 mg/dL Low 1.9-2.7 Urinalysis Profile 03/15/2017 Urine Color Colorless Urine Appearance Clear Urine Specific [place] 1.000 Low 1.010-1.030 Urine pH 6.0 5-9 Urine Urobilinogen Negative Negative Urine Ketones Trace Negative Urine Protein Negative Negative Urine Leukocytes Negative Negative Urine Blood 2+ Negative Urine Nitrite Negative Negative Urine Bilirubin Negative Negative Urine Glucose 3+(>=500 mg/dL) Negative Urine White Blood Cell Absent Absent Urine Red Blood Cell Absent Absent Urine Bacteria Absent Absent Urine Squamous Epithelial Cell Present Absent Laboratory test finding 01/14/2017 Hemoglobin A1c 9.2 CBC Auto Diff 12/06/2016 White Blood Count 7.8 10^3/uL 3.5-10.8 Red Blood Count 4.31 10^6/uL 4.0-5.4 Hemoglobin 13.7 g/dL 12.0-16.0 Hematocrit 40 % 35-47 Mean Corpuscular Volume 93 fL 80-97 Mean Corpuscular Hemoglobin 32 pg High 27-31 Mean Corpuscular HGB Conc 34 g/dL 31-36 Red Cell Distribution Width 13 % 10.5-15 Platelet Count 295 10^3/uL 150-450 Mean Platelet Volume 9 um3 7.4-10.4 Abs Neutrophils 5.0 10^3/uL 1.5-7.7 Abs Lymphocytes 2.1 10^3/uL 1.0-4.8 Abs Monocytes 0.3 10^3/uL 0-0.8 Abs Eosinophils 0.4 10^3/uL 0-0.6 Abs Basophils 0 10^3/uL 0-0.2 Abs Nucleated RBC 0 10^3/uL Granulocyte % 63.7 % 38-83 Lymphocyte % 26.8 % 25-47 Monocyte % 4.3 % 1-9 Eosinophil % 4.8 % 0-6 Basophil % 0.4 % 0-2 Nucleated Red Blood Cells % 0 Comp Metabolic Panel 12/06/2016 Sodium 133 mmol/L 133-145 Potassium 4.0 mmol/L 3.5-5.0 Chloride 103 mmol/L 101-111 Co2 Carbon Dioxide 24 mmol/L 22-32 Anion Gap 6 mmol/L 2-11 Glucose 249 mg/dL High 70-100 Blood Urea Nitrogen 7 mg/dL 6-24 Creatinine 0.68 mg/dL 0.51-0.95 BUN/Creatinine Ratio 10.3 8-20 Calcium 9.1 mg/dL 8.6-10.3 Total Protein 6.7 g/dL 6.4-8.9 Albumin 3.8 g/dL 3.2-5.2 Globulin 2.9 g/dL 2-4 Albumin/Globulin Ratio 1.3 1-3 Total Bilirubin 0.30 mg/dL 0.2-1.0 Alkaline Phosphatase 86 U/L 34-104 Alt 33 U/L 7-52 Ast 21 U/L 13-39 Egfr Non- 100.9 >60 Egfr 129.8 >60 7 Celiac Panel 12/06/2016 Tissue Transglutaminase IgA Ab <1.2 U/mL 8 Immunoglobulin A 255 mg/dL 61 - 356 Celiac Interpretation See Comment 9 Celiac Hla 12/06/2016 [id number] SEE BELOW 10 [id number] SEE BELOW 11 Celiac Gene Pairs Present? Yes Celiac Gene Interpretation See Comment 12 Connective Tissue Panel 12/06/2016 Anti-Nuclear Antibody 0.4 U 13 Cyclic Citrullinated Peptide <15.6 U 14 Interpretation See Comment 15 Laboratory test finding 12/06/2016 Erythrocyte Sed Rate 19 mm/Hr High 0- 14 C Reactive Protein 12.53 mg/L High < 5.00 16 Lyme Western Blot 12/06/2016 Lyme Disease IgG Ab WB Negative Negative Lyme Disease IgG Bands Present No bands detecte <SEE NOTE> kDa 17 Lyme Disease IgM Ab WB Negative Negative Lyme Disease IgM Bands Present No bands detecte <SEE NOTE> kDa 18 Lyme Disease Interpretation See Comment 19 Laboratory test finding 12/06/2016 Vitamin B12 289 pg/mL 180-914 20 Vitamin D Total 25(Oh) 11.8 ng/mL Low 20-50 Tick-Borne Panel PCR Blood 12/06/2016 Babesia microti PCR Negative Negative Babesia ducani Negative Negative Babesia divergens/Mo-1 Negative Negative 21 Anaplasma phagocytophilum Negative Negative Ehrlichia chaffeensis Negative Negative Ehrlichia ewingii/canis Negative Negative Ehrlichia muris-like Negative Negative 22 B. miyamotoi PCR, B Negative Negative 23 Laboratory test finding 12/06/2016 Magnesium 1.8 mg/dL Low 1.9-2.7 TSH (Thyroid Stim Horm) 1.30 mcIU/mL 0.34-5.60 Laboratory test 09/19/2016 D Dimer Quantitative < 200 ng/mL Less Than 230 24 finding HCG < 0.60 mIU/mL 25 Inr/Protime 09/19/2016 Inr 0.91 0.89-1.11 Laboratory test finding 09/19/2016 Creatine Kinase(CK) 80 U/L 10-223 Troponin-I (TnI) 0.00 ng/mL <0.04 Comp Metabolic Panel 09/19/2016 Sodium 134 mmol/L 133-145 Potassium 3.8 mmol/L 3.5-5.0 Chloride 103 mmol/L 101-111 Co2 Carbon Dioxide 24 mmol/L 22-32 Anion Gap 7 mmol/L 2-11 Glucose 179 mg/dL High 70-100 Blood Urea Nitrogen 9 mg/dL 6-24 Creatinine 0.77 mg/dL 0.51-0.95 BUN/Creatinine Ratio 11.7 8-20 Calcium 9.5 mg/dL 8.6-10.3 Total Protein 7.4 g/dL 6.4-8.9 Albumin 4.1 g/dL 3.2-5.2 Globulin 3.3 g/dL 2-4 Albumin/Globulin Ratio 1.2 1-3 Total Bilirubin 0.20 mg/dL 0.2-1.0 Alkaline Phosphatase 76 U/L 34-104 Alt 37 U/L 7-52 Ast 23 U/L 13-39 Egfr Non- 87.4 >60 Egfr 112.4 >60 26 Laboratory test finding 09/19/2016 Lactic Acid 1.7 mmol/L 0.5-2.0 27 CBC Auto Diff 09/19/2016 White Blood Count 12.9 10^3/uL High 3.5-10.8 Red Blood Count 4.41 10^6/uL 4.0-5.4 Hemoglobin 14.0 g/dL 12.0-16.0 Hematocrit 41 % 35-47 Mean Corpuscular Volume 93 fL 80-97 Mean Corpuscular Hemoglobin 32 pg High 27-31 Mean Corpuscular HGB Conc 34 g/dL 31-36 Red Cell Distribution Width 13 % 10.5-15 Platelet Count 316 10^3/uL 150-450 Mean Platelet Volume 9 um3 7.4-10.4 Abs Neutrophils 8.6 10^3/uL High 1.5-7.7 Abs Lymphocytes 2.9 10^3/uL 1.0-4.8 Abs Monocytes 0.6 10^3/uL 0-0.8 Abs Eosinophils 0.7 10^3/uL High 0-0.6 Abs Basophils 0.1 10^3/uL 0-0.2 Abs Nucleated RBC 0.01 10^3/uL Granulocyte % 66.6 % 38-83 Lymphocyte % 22.4 % Low 25-47 Monocyte % 4.7 % 1-9 Eosinophil % 5.5 % 0-6 Basophil % 0.8 % 0-2 Nucleated Red Blood Cells % 0.1 Laboratory test 09/19/2016 Troponin-I (TnI) 0.00 ng/mL <0.04 finding Laboratory test 07/23/2016 Hemoglobin A1c 6.4 finding Xray 07/08/2016 X-Ray, Chest, 2 Views no acute changes Laboratory test 04/24/2016 Hemoglobin A1c 5.8 finding 1 Please note the change in INR reference range effective 17. 2 Please note: The following may produce a false positive D Dimer test: - Rheumatoid factor greater than 60 IU/ml - Plasma hemoglobin greater than 0.05 gm/dl - Bilirubin greater than 50 mg/dl - Lipids greater than 1000 mg/dl - FDP greater than 20 ug/ml 3 [facility] Severe Sepsis and Septic Shock Management Bundle Measure requires all lactic acids initially measuring >2.0 mmol/L be repeated. 4 Because ethnic data is not always readily available, this report includes an eGFR for both -Americans and non- Americans. The National Kidney Disease Education Program (NKDEP) does not endorse the use of the MDRD equation for patients that are not between the ages of 18 and 70, are , have extremes of body size, muscle mass, or nutritional status, or are non- or non-. According to the National Kidney Foundation, irrespective of diagnosis, the stage of the disease is based on the level of kidney function: Stage Description GFR(mL/min/1.73 m(2)) 1 Kidney damage with normal or decreased GFR 90 2 Kidney damage with mild decrease in GFR 60-89 3 Moderate decrease in GFR 30-59 4 Severe decrease in GFR 15-29 5 Kidney failure <15 (or dialysis) 5 <5.0 Negative 5.0 - 25.0 Indeterminate (Repeat testing recommended after 72 hours) >25.0 Positive Perimenopausal women can display HCG levels of up to 20 mIU/mL 6 >100 to <200 pg/mL: likely compensated congestive heart failure (CHF) 200 to 400 pg/mL: likely moderate CHF >400 pg/mL: likely moderate to severe CHF 7 Because ethnic data is not always readily available, this report includes an eGFR for both -Americans and non- Americans. The National Kidney Disease Education Program (NKDEP) does not endorse the use of the MDRD equation for patients that are not between the ages of 18 and 70, are , have extremes of body size, muscle mass, or nutritional status, or are non- or non-. According to the National Kidney Foundation, irrespective of diagnosis, the stage of the disease is based on the level of kidney function: Stage Description GFR(mL/min/1.73 m(2)) 1 Kidney damage with normal or decreased GFR 90 2 Kidney damage with mild decrease in GFR 60-89 3 Moderate decrease in GFR 30-59 4 Severe decrease in GFR 15-29 5 Kidney failure <15 (or dialysis) 8 REFERENCE VALUE <4.0 (Negative) Test Performed by: [place] [address] 9 Negative serology. Celiac disease unlikely. However, approximately 10% of patients with celiac disease are seronegative. Also, patients who are already adhering to a gluten-free diet may be seronegative. If celiac disease is highly clinically suspected, consider HLA-DQ typing. Test Performed by: [place] [address] 10 RESULT: 05:01,05 REFERENCE VALUE Not Applicable 11 RESULT: 02:01,03:01 DQ Serologic Equivalent: 2,7 REFERENCE VALUE Not Applicable 12 These genes are permissive for celiac disease. The absence of HLA celiac permissive genes would make the presence of celiac disease unlikely. However, these genes can also be present in the normal population. ADDITIONAL INFORMATION Method: Molecular typing of HLA antigens performed using reverse SSOP and/or SSP methods, reported as serological equivalents and low to medium resolution molecular values. Performing Laboratory CLIA# [id number] Test Performed by: [place] [id number] REFERENCE VALUE <=1.0 (Negative) 14 REFERENCE VALUE <20.0 (Negative) 15 Tests for antibodies to dsDNA and SCOOTER antigens are not performed automatically unless the MP result is > or= 3.0 U. Studies performed at [facility] indicate that positive MP results <3.0 U are rarely accompanied by positive second order tests. Test Performed by: [facility] - [address] [address] 16 Acute inflammation: >10.00 17 No bands detected 18 No bands detected 19 Specific serologic response to B. burgdorferi infection is not detected, but cannot rule out early infection during which low or undetectable antibody levels to B. burgdorferi may be present. If clinically indicated, a new serum specimen should be submitted in 7-14 days. ADDITIONAL INFORMATION CDC criteria require >=5 bands for IgG or >=2 bands for IgM for the Immunoblot to be considered positive. Bands (e.g.,p41) may be detected in patients without Lyme disease, and patterns not meeting the CDC criteria should be interpreted with caution. Immunoblot should be ordered only on specimens that are positive or equivocal by a FDA-licensed Lyme disease antibody screening test (e.g., EIA). Test Performed by: [facility] [place] [facility] [address] [place] [address] 20 Normal Range 180 to 914 Indeterminate Range 145 to 180 Deficient Range <145 21 ADDITIONAL INFORMATION This test was developed and its performance characteristics determined by [facility] in a manner consistent with CLIA requirements. This test has not been cleared or approved by the U.S. Food and Drug Administration. 22 ADDITIONAL INFORMATION This test was developed and its performance characteristics determined by [facility] in a manner consistent with CLIA requirements. This test has not been cleared or approved by the U.S. Food and Drug Administration. 23 ADDITIONAL INFORMATION This test was developed and its performance characteristics determined by [facility] in a manner consistent with CLIA requirements. This test has not been cleared or approved by the U.S. Food and Drug Administration. Test Performed by: [address] [address] 24 Please note: The following may produce a false positive D Dimer test: - Rheumatoid factor greater than 60 IU/ml - Plasma hemoglobin greater than 0.05 gm/dl - Bilirubin greater than 50 mg/dl - Lipids greater than 1000 mg/dl - FDP greater than 20 ug/ml 25 <5.0 Negative 5.0 - 25.0 Indeterminate (Repeat testing recommended after 72 hours) >25.0 Positive Perimenopausal women can display HCG levels of up to 20 mIU/mL 26 Because ethnic data is not always readily available, this report includes an eGFR for both -Americans and non- Americans. The National Kidney Disease Education Program (NKDEP) does not endorse the use of the MDRD equation for patients that are not between the ages of 18 and 70, are , have extremes of body size, muscle mass, or nutritional status, or are non- or non-. According to the National Kidney Foundation, irrespective of diagnosis, the stage of the disease is based on the level of kidney function: Stage Description GFR(mL/min/1.73 m(2)) 1 Kidney damage with normal or decreased GFR 90 2 Kidney damage with mild decrease in GFR 60-89 3 Moderate decrease in GFR 30-59 4 Severe decrease in GFR 15-29 5 Kidney failure <15 (or dialysis) 27 [facility] Severe Sepsis and Septic Shock Management Bundle Measure requires all lactic acids initially measuring >2.0 mmol/L be repeated. Procedures Date CPT Code Description Status 03/29/2017 57409 Electrocardiogram Complete Completed 07/08/2016 66405 X-Ray Chest Two Views Completed Encounters Type Date Location Provider CPT E/M Dx Office Visit 03/29/2017 10:30a Main Office Carissa Rivero P.AIsabella 45601 E11.9 Z79.4 I10 R00.0 M54.5 M25.512 E07.89 Office Visit 03/18/2017 4:00p Main Office Umer GoodrichAIsabella 16983 E11.9 R00.2 I10 Z79.4 E11.65 Office Visit 01/14/2017 1:30p [place] [address] E11.9 M54.5 I10 Z23 Office Visit 12/02/2016 4:45p Main Office Toño Fairbanks D.O. 31082 E11.9 M54.5 M43.06 J34.3 Office Visit 10/02/2016 2:40p [place] [address] M54.2 M54.5 N63 E11.9 Office Visit 07/23/2016 9:45a [place] [address] E11.9 N64.4 N63 I10 Office Visit 07/08/2016 3:25p Main Office John Castillo M.D. 27652 R05 J20.9 Office Visit 05/07/2016 2:35p [place] [address] N64.4 N63 Office Visit 04/24/2016 1:40p [place] [address] N63 N64.4 E11.9 I10 M15.0 G43.009 Plan of Care Future Appointment(s):04/02/2017 10:40 am - Aliya Mar PA at Main Rngaek1408/2017 - Carissa Rivero PIsabellaAIsabellaE11.9 Type 2 diabetes mellitus without buijbbkitiwhoS98.4 intermediate (current) use of vjuvautL33 Essential (primary) hypertensionNew Medication:Amlodipine Besylate 5 mgComments:pt advised to report cp, change in angina , sob etContinue same meds with no change. Comply with diet and exercise. Lose weight and watch salt in diet. Again in office BP was fineEKG: Sinus rhythm: regular:77 BPMPRi: 172QRS: 80QT: 380 Adding amlodipine due to very high BPs, discussed with pt, denied any possiblity of now or future at this time.Follow up:If your diastolic number is over 110 or the upper number higher than 180, call 911 immediately.R00.0 Tachycardia , unspecifiedFollow up:Get lab work done on VrogyyY99.5 Low back painComments: discussed that this is not urgent need, need to determine BP issue firstReferral :Bienvenido Esparza MD, Surgery,QommmfxcajvpA83.512 Pain in left shoulderComments: reviewed some basic exercises, pain is mild, does not appear to be cardiac. if cont will refer to PTif cardiac issues determined.E07.89 Other specified disorders of thyroidNew Xrays:Ultrasound, ThyroidComments:small lump, possible nodule noted on the thyroid, left
--- OUTSIDE RECORDS SUMMARY | 2017-03-30 20:13 | XMS REPORT ---
:1985 External Reference #:[id number] Author Organization [facility] Medicine Address [address] [place] [address] Phone [phone] Care Team Providers Name Role Phone HCP given Primary Care Physician Unavailable Payers Type Date Identification Numbers Payment Provider Subscriber Commercial Effective: Policy Number: [id number] [facility] Alo Brunson [address] [place] PayID: [id number] [address] [place] [address] Problems Date Description Provider Status Onset: 04/24/2016 [...] Marital Status Significant Other Occupation works at [employer] Work Status Currently Working Cigarette Use 04/24/2016 [...] Form Strength Qnty SIG Indications Ordering Provider Lisinopril 03/18/ Active Tablets 10mg 30tabs take 1 I10 Aure 2016 tablet every Alan, morning for M.D. blood pressure control Basaglar 02/08/ Active Solution 100Unit/ML 20 units Unknown Kwikpen 2016 Pen-Inject subq once daily at bedtime Januvia 02/01/ Active Tablets 50mg 30tabs 1 tab by E11.9 Aure, 2016 mouth every Alan, day M.D. Advocate 01/26/ Active Misc 31G X 8 mm 90unit or other E11.9 Sopchak, Insulin Pen 2017 s compatable Toño, Wilcox needles with D.O. [id number] victoza pens Hydrocodone- 01/14/ Active Tablets 5-325mg 30tabs 1 tablet by M54.5 Angela Looney 2016 mouth up to Alan, n every 8 M.D. hours as needed for pain Freestyle 07/23/ Active E11.9 Hektor, [place] 2016 HERMELINDA Pisano Glucometer Freestyle 07/23/ Active Misc 100uni test twice Hekvini, Lancets 2016 ts daily HERMELINDA Pisano Freestyle 07/23/ Active Strips 100uni test twice Silcoandi, Test 2017 ts daily Bienvenido Phillips Trulicity 01/14/ Hx Solution 0.75mg/0.5 2ml 0.5ml sc E11.2016 - Pen-Inject ML weekly for Alan, 01/14/ diabetes M.D. 2017 Victoza 01/14/ Hx Solution 18mg/3ML 3ml 0.6 mg once E11.9 Aure, 2016 - Pen-Inject daily every Alan, 02/01/ night at M.D. 2017 bedtime for diabetes Hydrocodone- 10/02/ Hx Tablets 5-325mg 30tabs 1 tablet by M54.2 Angela Fairbanks 2016 - mouth up to Toño, n 01/01/ every 8 D.O. 2017 hours as needed for pain M54.5 Methylprednisolone 10/02/2016 - Hx TBPK 4mg 1units use as M54.2 Zaid, 10/07/2016 directed on HERMELINDA Pisano package M54.5 Onetouch Ultra 07/23/2016 - Hx Kit w/Device 1units test twice E11.9 Hektor, System 07/23/2016 a day HERMELINDA Pisano Ondansetron 07/21/2016 - Hx Tablets 4mg Unknown 10/01/2016 Dispers Clarithromycin 07/08/2016 - Hx Tablets 250mg 20tabs 1 by mouth J20.9 John 07/18/2016 twice a A. day until awilda Castillo M.D. Benzonatate 07/08/2016 - Hx Capsules 200mg 30caps 1 by mouth R05 [facility] 07/18/2016 three A. times a Klepack, day and at M.D. bedtime daily, as needed cough Naproxen Sodium 05/06/2016 - Hx Capsules 220mg as Unknown 10/01/2016 directed as needed Tramadol HCL 04/24/2016 - Hx Tablets 50mg 56tabs 1-2 tabs N64.4 Hektor, 10/01/2016 by mouth HERMELINDA Pisano up to 4 times daily as needed for severe pain Invokana - Hx Tablets 100mg 30tabs once daily E11.9 Hektor, 11/22/2016 for HERMELINDA Pisano diabetes Lisinopril - Hx Tablets 5mg 30tabs 1 by mouth I10 Aure, 03/18/2017 every day Bienvenido Phillips Immunizations CPT Code Status Date Vaccine Lot # [id number] Given 01/14/2017 Influenza Virus Vaccine, Quadrivalent, Split, [id number] Preservative Free Vital Signs Date Vital Result Comment 03/18/2017 BP Systolic 136 mmHg BP Diastolic [...] Color Colorless Urine Appearance Clear Urine Specific [place] 1.000 Low 1.010-1.030 Urine pH 6.0 5-9 [...] Laboratory test finding 01/14/2017 Hemoglobin A1c 9.2 Laboratory test finding 12/06/2016 Erythrocyte Sed Rate 19 mm/Hr High 0- 14 C Reactive Protein 12.53 mg/L High < 5.00 7 Lyme Western Blot 12/06/2016 Lyme Disease IgG Ab WB Negative Negative Lyme Disease IgG Bands Present No bands detecte <SEE NOTE> kDa 8 Lyme Disease IgM Ab WB Negative Negative Lyme Disease IgM Bands Present No bands detecte <SEE NOTE> kDa 9 Lyme Disease Interpretation See Comment 10 Laboratory test finding 12/06/2016 Magnesium 1.8 mg/dL Low 1.9-2.7 TSH (Thyroid Stim Horm) 1.30 mcIU/mL 0.34-5.60 Tick-Borne Panel PCR Blood 12/06/2016 Babesia microti PCR Negative Negative Babesia ducani Negative Negative Babesia divergens/Mo-1 Negative Negative 11 Anaplasma phagocytophilum Negative Negative Ehrlichia chaffeensis Negative Negative Ehrlichia ewingii/canis Negative Negative Ehrlichia muris-like Negative Negative 12 B. miyamotoi PCR, B Negative Negative 13 Laboratory test finding 12/06/2016 Vitamin B12 289 pg/mL 180-914 14 Vitamin D Total 25(Oh) 11.8 ng/mL Low 20-50 Connective Tissue Panel 12/06/2016 Anti-Nuclear Antibody 0.4 U 15 Cyclic Citrullinated Peptide <15.6 U 16 Interpretation See Comment 17 Celiac Hla 12/06/2016 Hla-Dqa1 SEE BELOW 18 Hla-DQB1 SEE BELOW 19 Celiac Gene Pairs Present? Yes Celiac Gene Interpretation See Comment 20 Celiac Panel 12/06/2016 Tissue Transglutaminase IgA Ab <1.2 U/mL 21 Immunoglobulin A 255 mg/dL 61 - 356 Celiac Interpretation See Comment 22 Comp Metabolic Panel 12/06/2016 Sodium 133 mmol/L [...] Egfr Non- 100.9 >60 Egfr 129.8 >60 23 CBC Auto Diff 12/06/2016 White Blood Count [...] 0-2 Nucleated Red Blood Cells % 0 Laboratory test 09/19/2016 D Dimer Quantitative < [...] - FDP greater than 20 ug/ml 3 [place] Severe Sepsis and Septic Shock Management Bundle [...] pg/mL: likely moderate to severe CHF 7 Acute inflammation: >10.00 8 No bands detected 9 No bands detected 10 Specific serologic response to B. burgdorferi infection [...] screening test (e.g., EIA). Test Performed by: [facility] - [address] [address] 11 ADDITIONAL INFORMATION This test was developed and its performance characteristics determined by [facility] in a manner consistent with CLIA requirements. This test has not been cleared or approved by the U.S. Food and Drug Administration. 12 ADDITIONAL INFORMATION This test was developed and its performance characteristics determined by [facility] in a manner consistent with CLIA requirements. This test has not been cleared or approved by the U.S. Food and Drug Administration. 13 ADDITIONAL INFORMATION This test was developed and its performance characteristics determined by [facility] in a manner consistent with CLIA requirements. This test has not been cleared or approved by the U.S. Food and Drug Administration. Test Performed by: [facility] - [address] [address] 14 Normal Range 180 to 914 Indeterminate Range 145 to 180 Deficient Range <145 15 REFERENCE VALUE <=1.0 (Negative) 16 REFERENCE VALUE <20.0 (Negative) 17 Tests for antibodies to dsDNA and SCOOTER antigens are not performed automatically unless the MP result is > or= 3.0 U. Studies performed at [facility] indicate that positive MP results <3.0 U are rarely accompanied by positive second order tests. Test Performed by: [facility] - [place] [id number] RESULT: 05:01,05 REFERENCE VALUE Not Applicable 19 RESULT: 02:01,03:01 DQ Serologic Equivalent: 2,7 REFERENCE VALUE Not Applicable 20 These genes are permissive for celiac disease. The absence of HLA celiac permissive genes would make the presence of celiac disease unlikely. However, these genes can also be present in the normal population. ADDITIONAL INFORMATION Method: Molecular typing of HLA antigens performed using reverse SSOP and/or SSP methods, reported as serological equivalents and low to medium resolution molecular values. Performing Laboratory CLIA# [id number] Test Performed by: [place] [address] 21 REFERENCE VALUE <4.0 (Negative) Test Performed by: [place] [address] 22 Negative serology. Celiac disease unlikely. However, approximately 10% of patients with celiac disease are seronegative. Also, patients who are already adhering to a gluten-free diet may be seronegative. If celiac disease is highly clinically suspected, consider HLA-DQ typing. Test Performed by: [place] [address] 23 Because ethnic data is not always readily [...] 15-29 5 Kidney failure <15 (or dialysis) 24 Please note: The following may produce [...] 5 Kidney failure <15 (or dialysis) 27 [facility] Severe Sepsis and Septic Shock Management Bundle Measure requires all lactic acids initially measuring >2.0 mmol/L be repeated. Procedures Date CPT Code Description Status 07/08/2016 90355 X-Ray Chest Two Views Completed Encounters Type Date Location Provider CPT E/M Dx Office Visit 03/18/2017 4:00p Main Office Linda Goodrich.Alayna. [address] E11.9 R00.2 I10 Z79.4 E11.65 Office Visit 01/14/2017 1:30p [place] [address] E11.9 M54.5 I10 Z23 Office Visit 12/02/2016 4:45p Main Office Toño Fairbanks D.O. 44643 E11.9 M54.5 M43.06 J34.3 Office Visit 10/02/2016 2:40p [place] [address] M54.2 M54.5 N63 E11.9 Office Visit 07/23/2016 9:45a [place] [address] E11.9 N64.4 N63 I10 Office Visit 07/08/2016 3:25p Main Office John Castillo M.D. 29203 R05 J20.9 Office Visit 05/07/2016 2:35p [place] [address] N64.4 N63 Office Visit 04/24/2016 1:40p [place] [address] N63 N64.4 E11.9 I10 M15.0 G43.009 Plan of Care Future Appointment(s):04/02/2017 10:40 am - Aliya Mar PA at Main Obqvme7907/2017 10:15 am - Nurse's Schedule at Main Vubvfy2603/27/2017 10:15 am - Nurse's Schedule at Main Yjmtqb0503/18/2017 - Cassandra GoodrichE11.9 Type 2 diabetes mellitus without complicationsComments:A1C today: 9.8Follow up:30 minutes of exercise a day consider Muc[employer]Med videos for exercise ideas Start the Basaglar, use as directed Return to the office to discuss diet Always eat breakfast Look up Frittata recipes, make ahead and then microwave a portion in the morning for breakfast hard boiled eggs f/u 3-4 weeks for diet counseling and see how things are going (can be after wear holter)R00.2 PalpitationsFollow up: 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 Comply with diet and exercise. 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
[2017-03-30] MEDS ORDERED: NS 0.9% 1000 ML* 2,000 ML IV ONE (20:15)
[2017-03-30] MEDS ORDERED: Aspirin Low Dose CHEW TAB* 81 MG PO ONE (20:15)
[2017-03-30 20:24] LABS: ABS Basophils 0.1 10^3/ul (0-0.2); ABS Eosinophils 0.3 10^3/ul (0-0.6); ABS Lymphocytes 2.5 10^3/ul (1.0-4.8); ABS Monocytes 0.4 10^3/ul (0-0.8); ABS Neutrophils 6.2 10^3/ul (1.5-7.7); ABS Nucleated RBC 0 10^3/ul; Eosinophil % 2.9 % (0-6); Hematocrit 44 % (35-47); Hemoglobin 14.9 g/dl (12.0-16.0); Lymphocyte % 26.1 % (25-47); Mean Corpuscular HGB Conc 34 g/dl (31-36); Mean Corpuscular Hemoglobin 31 pg (27-31); Mean Corpuscular Volume 90 fL (80-97); Mean Platelet Volume 9 um3 (7.4-10.4); Nucleated Red Blood Cells % 0.1; Platelet Count 306 10^3/ul (150-450); Red Blood Count 4.81 10^6/ul (4.0-5.4); Red Cell Distribution Width 13 % (10.5-15); White Blood Count 9.5 10^3/ul (3.5-10.8)
[2017-03-30 20:25] LABS: Urine Appearance Clear; Urine Blood Negative (Negative); Urine Color Straw; Urine Ketones Negative (Negative); Urine Protein Negative (Negative); Urine Specific Gravity 1.007 (1.010-1.030); Urine Urobilinogen Negative (Negative)
[2017-03-30 20:34] LABS: INR 0.94 (0.77-1.02)
[2017-03-30 20:40] LABS: EGFR Non-African American 99.2 (>60)
[2017-03-30] MEDS ORDERED: Magnesium Sulfate 2 GM IV* 2 GM/50 ML BAG IVPB ONE (21:35)
[2017-03-31] MEDS ORDERED: Ketorolac INJ* 30 MG/ML 1 ML VIAL IV ONE (00:03)
--- NOTE | 2017-03-31 01:18 | ED ---
Leonidas Coats Abhishek, scribed for John Nicole MD on 03/30/17 at 2016 . Palpitations / Dysrhythmia - HPI Summary HPI Summary: This patient is a 31 year old F BIBA accompanied by with a chief complaint of palpitations since 1900. The patient rates the pain 3/10 in severity. Symptoms aggravated by nothing. Symptoms alleviated by medication given in the ambulance. Patient reports SOB, chest pain (intermittent), near syncope, left arm pain, vomiting, and nausea. Patient denies abd pain. Pertinent PMHx includes HTN. Pt denies PMHx of PE and DVT (blood clots). - History of Current Complaint Chief Complaint: EDChestPainROMI Time Seen by Provider: 03/30/17 20:02 Hx Obtained From: Patient Onset/Duration: Sudden Onset, Lasting Hours - since 1900, Still Present Character: Fast Aggravating: Nothing Alleviating: Medication - given in the ambulance Associated Signs & Symptoms: Chest Pain, Nausea, Vomiting - Risk Factors Cardiac: Hypertension, Diabetes - Allergy/Home Medications Allergies/Adverse Reactions: Allergies Allergy/AdvReac Type Severity Reaction Status Date / Time Morphine Allergy Intermediate Hives Verified 03/15/17 21:44 PMH/Surg Hx/FS Hx/Imm Hx Endocrine/Hematology History: Reports: Hx Diabetes - TYPE II - IDDM Denies: Hx Thyroid Disease Cardiovascular History: Denies: Hx Congestive Heart Failure, Hx Hypertension - takes lisinopril 5mg for renal protection, Hx Pacemaker/ICD Respiratory History: Denies: Hx Asthma, Hx Chronic Obstructive Pulmonary Disease (COPD) GI History: Reports: Hx Gall Bladder Disease - s/p cholecystectomy, Other GI Disorders - GALL STONES Denies: Hx Ulcer History: Reports: Hx Kidney Stones Denies: Hx Renal Disease Musculoskeletal History: Reports: Hx Back Problems, Hx Orthopedic Injury Denies: Hx Arthritis, Hx Osteoporosis Sensory History: Denies: Hx Contacts or Glasses, Hx Hearing Aid Opthamlomology History: Denies: Hx Contacts or Glasses Neurological History: Reports: Hx Headaches, Hx Migraine Psychiatric History: Denies: Hx Eating Disorder, Hx Panic Disorder, Hx of Violent Episodes Against Others - Cancer History Cancer Type, Location and Year: Has High blood sugar that they are watching; not classified as diabetic at this time. - Surgical History Surgery Procedure, Year, and Place: [place] [facility] [place]aminectomy L5 r/t degenerative disc disease 2006,. SEPTOPLASTY 2013 [place]. Mass removal right bicep 01/2016. Lap appendectomy Hx Anesthesia Reactions: No Infectious Disease History: No Infectious Disease History: Denies: Hx Clostridium Difficile, Hx Hepatitis, Hx Human Immunodeficiency Virus (HIV), Hx of Known/Suspected MRSA, Hx Shingles, Hx Tuberculosis, Hx Known/ Suspected VRE, Hx Known/Suspected VRSA, History Other Infectious Disease, Traveled Outside the [place] in Last 30 Days - Family History Known Family History: Positive: Hypertension Family History: aunt w/ h/o CAD - no fam h/o arrhythmia - Social History Alcohol Use: Occasionally Alcohol Amount: Weekends only Hx Substance Use: No Substance Use Type: Reports: None Hx Tobacco Use: Yes Smoking Status (MU): Current Some Day Smoker Type: Cigarettes Amount Used/How Often: 3-4 CIG/DAY Length of Time of Smoking/Using Tobacco: 5 years Have You Smoked in the Last Year: No Review of Systems Constitutional: Negative Eyes: Negative ENT: Negative Positive: Chest Pain - intermittent Positive: Shortness Of Breath Positive: Vomiting, Nausea. Negative: Abdominal Pain Genitourinary: Negative Musculoskeletal: Other - left arm pain Skin: Negative Neurological: Other - Near-syncope Psychological: Normal All Other Systems Reviewed And Are Negative: Yes Physical Exam - Summary Physical Exam Summary: General: Mildly anxious Skin: warm, color reflects adequate perfusion, dry Head: normal Eyes: EOMI, SHERYL ENT: normal Neck: supple, nontender Respiratory: CTA, breath sounds present Cardiovascular: RRR Abdomen: soft, nontender Bowel: present Musculoskeletal: normal, strength/ROM intact Neurological: normal, sensory/motor intact, A&O x3 Psychological: affect/mood appropriate Triage Information Reviewed: Yes Vital Signs On Initial Exam: Initial Vitals Temp Pulse Resp BP Pulse Ox 97.9 F 90 22 111/54 100 03/30/17 19:44 03/30/17 19:44 03/30/17 19:44 03/30/17 19:44 03/30/17 19:44 Vital Signs Reviewed: Yes Diagnostics - Vital Signs Vital Signs Temp Pulse Resp BP Pulse Ox 03/30/17 19:44 97.9 F 90 22 111/54 100 - Laboratory Lab Results: Lab Results 03/30/17 03/30/17 03/30/17 Range/Units 19:47 20:05 20:05 WBC 9.5 (3.5-10.8) 10^3/ul RBC 4.81 (4.0-5.4) 10^6/ul Hgb 14.9 (12.0-16.0) g/dl Hct 44 (35-47) % MCV 90 (80-97) fL MCH 31 (27-31) pg MCHC 34 (31-36) g/dl RDW 13 (10.5-15) % Plt Count 306 (150-450) 10^3/ul MPV 9 (7.4-10.4) um3 Neut % (Auto) 65.7 (38-83) % Lymph % (Auto) 26.1 (25-47) % Guthrie % (Auto) 4.3 (1-9) % Eos % (Auto) 2.9 (0-6) % Baso % (Auto) 1.0 (0-2) % Absolute Neuts (auto) 6.2 (1.5-7.7) 10^3/ul Absolute Lymphs (auto) 2.5 (1.0-4.8) 10^3/ul Absolute Monos (auto) 0.4 (0-0.8) 10^3/ul Absolute Eos (auto) 0.3 (0-0.6) 10^3/ul Absolute Basos (auto) 0.1 (0-0.2) 10^3/ul Absolute Nucleated RBC 0 10^3/ul Nucleated RBC % 0.1 INR (Anticoag Therapy) (0.77-1.02) APTT (26.0-36.3) seconds D-Dimer, Quantitative (Less Than 230) ng/mL Sodium 132 L (133-145) mmol/L Potassium 3.7 (3.5-5.0) mmol/L Chloride 102 (101-111) mmol/L Carbon Dioxide 22 (22-32) mmol/L Anion Gap 8 (2-11) mmol/L BUN 8 (6-24) mg/dL Creatinine 0.69 (0.51-0.95) mg/dL Est GFR ( Amer) 127.6 (>60) Est GFR (Non-Af Amer) 99.2 (>60) BUN/Creatinine Ratio 11.6 (8-20) Glucose 306 H (70-100) mg/dL Lactic Acid (0.5-2.0) mmol/L Calcium 9.1 (8.6-10.3) mg/dL Magnesium 1.7 L (1.9-2.7) mg/dL Total Bilirubin 0.30 (0.2-1.0) mg/dL AST 29 (13-39) U/L ALT 43 (7-52) U/L Alkaline Phosphatase 103 (34-104) U/L Troponin I 0.00 (<0.04) ng/mL C-Reactive Protein 13.03 H (< 5.00) mg/L Total Protein 7.6 (6.4-8.9) g/dL Albumin 4.1 (3.2-5.2) g/dL Globulin 3.5 (2-4) g/dL Albumin/Globulin Ratio 1.2 (1-3) Lipase 24 (11.0-82.0) U/L TSH 1.09 (0.34-5.60) mcIU/mL Beta HCG, Quant < 0.60 mIU/mL Urine Color Straw Urine Appearance Clear Urine pH 6.0 (5-9) Ur Specific [place] 1.007 L (1.010-1.030) Urine Protein Negative (Negative) Urine Ketones Negative (Negative) Urine Blood Negative (Negative) Urine Nitrate Negative (Negative) Urine Bilirubin Negative (Negative) Urine Urobilinogen Negative (Negative) Ur Leukocyte Esterase Negative (Negative) Urine Glucose 3+(>=500 mg/dl) H (Negative) 03/30/17 03/30/17 03/30/17 Range/Units 20:05 20:05 21:59 WBC (3.5-10.8) 10^3/ul RBC (4.0-5.4) 10^6/ul Hgb (12.0-16.0) g/dl Hct (35-47) % MCV (80-97) fL MCH (27-31) pg MCHC (31-36) g/dl RDW (10.5-15) % Plt Count (150-450) 10^3/ul MPV (7.4-10.4) um3 Neut % (Auto) (38-83) % Lymph % (Auto) (25-47) % Guthrie % (Auto) (1-9) % Eos % (Auto) (0-6) % Baso % (Auto) (0-2) % Absolute Neuts (auto) (1.5-7.7) 10^3/ul Absolute Lymphs (auto) (1.0-4.8) 10^3/ul Absolute Monos (auto) (0-0.8) 10^3/ul Absolute Eos (auto) (0-0.6) 10^3/ul Absolute Basos (auto) (0-0.2) 10^3/ul Absolute Nucleated RBC 10^3/ul Nucleated RBC % INR (Anticoag Therapy) 0.94 (0.77-1.02) APTT 27.1 (26.0-36.3) seconds D-Dimer, Quantitative < 200 (Less Than 230) ng/mL Sodium (133-145) mmol/L Potassium (3.5-5.0) mmol/L Chloride (101-111) mmol/L Carbon Dioxide (22-32) mmol/L Anion Gap (2-11) mmol/L BUN (6-24) mg/dL Creatinine (0.51-0.95) mg/dL Est GFR ( Amer) (>60) Est GFR (Non-Af Amer) (>60) BUN/Creatinine Ratio (8-20) Glucose (70-100) mg/dL Lactic Acid 1.9 (0.5-2.0) mmol/L Calcium (8.6-10.3) mg/dL Magnesium (1.9-2.7) mg/dL Total Bilirubin (0.2-1.0) mg/dL AST (13-39) U/L ALT (7-52) U/L Alkaline Phosphatase (34-104) U/L Troponin I 0.01 (<0.04) ng/mL C-Reactive Protein (< 5.00) mg/L Total Protein (6.4-8.9) g/dL Albumin (3.2-5.2) g/dL Globulin (2-4) g/dL Albumin/Globulin Ratio (1-3) Lipase (11.0-82.0) U/L TSH (0.34-5.60) mcIU/mL Beta HCG, Quant mIU/mL Urine Color Urine Appearance Urine pH (5-9) Ur Specific [place]rypt[place] (1.010-1.030) Urine Protein (Negative) Urine Ketones (Negative) Urine Blood (Negative) Urine Nitrate (Negative) Urine Bilirubin (Negative) Urine Urobilinogen (Negative) Ur Leukocyte Esterase (Negative) Urine Glucose (Negative) Result Diagrams: 03/30/17 20:05 03/30/17 20:05 Lab Statement: Any lab studies that have been ordered have been reviewed, and results considered in the medical decision making process. - Radiology Chest X-ray Radiology Interpretation Completed By: Radiologist - CXR reveals, per radiologist, NO EVIDENCE FOR ACUTE DISEASE. ED physician has reviewed this radiology report and agrees. - EKG 1935 EKG Rhythm: Sinus Rhythm - [address] Segment: Normal Ectopy: None EKG Interpretation: Time Taken 1935: RSR in V1 or V2, probably normal variant Course/Dx - Course Course Of Treatment: DISCUSSED RESULTS WITH PATIENT. F/U PMD AND CARDIOLOGY; RETURN IF WORSE. - Diagnoses Provider Diagnoses: Chest pain, Palpitations, Poorly controlled diabetes mellitus Discharge - Discharge Plan Condition: Stable Disposition: HOME Patient Education Materials: Tachycardia (ED), Type 2 Diabetes in Adults (ED) Referrals: Alan Looney MD [Primary Care Provider] - Additional Instructions: FOLLOW UP WITH YOUR DOCTOR. YOUR BLOOD SUGAR IS POORLY CONTROLLED. DISCUSS BETTER GLUCOSE CONTROL WITH YOU DOCTOR. RETURN TO THE EMERGENCY DEPARTMENT FOR ANY WORSENING OF YOUR CONDITION; CHEST PAIN, SHORTNESS OF BREATH, YOU FEEL ILL OR QUESTIONS OR CONCERNS. The documentation as recorded by the Leonidas soto Abhishek accurately reflects the service I personally performed and the decisions made by me, John Nicole MD.
[2017-03-31 01:32] VITALS: BP 110/71
== END 2017-03-31 01:31 | disposition home or self-care (01) ==
LOC: ED 19:28
DX: R07.9 Chest pain, unspecified (principal); R00.2 Palpitations; E11.65 Type 2 diabetes mellitus with hyperglycemia; R06.02 Shortness of breath; R11.2 Nausea with vomiting, unspecified; Z72.0 Tobacco use
CPT/HCPCS: 36415; 71045; 80053; 81003; 83605; 83690; 83735; 84443; 84484; 84702; 85025; 85379; 85610; 85730; 86140; 93005; 96365; 96375; 99283; J1885; J3475

== ENCOUNTER 2017-04-18 19:53 | Emergency (ER) | payer OTHER ==
--- OUTSIDE RECORDS SUMMARY | 2017-04-18 20:01 | XMS REPORT ---
:1985 External Reference #:[id number] Author Organization [employer] Address [address] [address] Phone [phone] Care Team Providers Name Role Phone Alan Looney MD Primary Care Physician Unavailable Payers Type Date Identification Numbers Payment Provider Subscriber Commercial Policy Number: [id number] [place] PayID: [id number] [address] [place] [address] Workers Compensation Onset: 2015 Policy Number: [employer] Tyson Florence [id number] Boy PayID: [id number] [address] [place] [address] Problems Description No Information Family History Date Family Member(s) Problem(s) Comments General Arthritis Social History Type Date Description Comments Lives With Family Occupation Unemployed ETOH Use Never used alcohol Smoking Patient is a current smoker, 5 ciggerettes a day x 3 yr smokes every day Recreational Drug Use Denies Drug Use Smoking I strongly advised her to quit smoking Daily Caffeine Consumes on average 24oz of soda per day Exercise Type/Frequency Exercises regularly General Hx Text works at [employer] no sick contacts Allergies, Adverse Reactions, Alerts Date Description Reaction Status Severity Comments 11/24/2012 Morphine Urticaria active Medications Medication Date Status Form Strength Qnty SIG Indications Ordering Provider Insulin Pen 04/14/ Bienvenido Esparza M.D. Lisinopril 00/00/ Active Tablets 5mg Unknown 0000 Cyclobenzaprine / Active Tablets 10mg 1 tablet Unknown HCL 0000 by mouth q8 hours as needed muscle spasms Hydrocodone-Aceta / Active Tablets 5-325mg 1 or 2 Unknown minophen 0000 tabs by mouth every 6-8 hours as needed for pain Amlodipine / Active Tablets 10mg 1 by mouth Unknown Besylate 0000 every day Zofran 07/10/ Hx Tablets 4mg 30tab 1 tab by R11.0 Richar 2016 s mouth D. every 8 [place], hours as M.D. needed nausea No Active 11/24/ Hx Unknown Medications 2012 - 2012 Naproxen 11/24/ Hx Tablets 375mg 30tab 1 po tid Angel Boo 2012 - s prn pain. Amilcar, 07/09/ take with M.D. 2015 food. [place] 03/28/ Hx Tablets 5-325mg 45tab 1-2 po qid Angel Boo 2010 - s prn pain Amilcar, M.D. 2012 Ibuprofen 11/06/ Hx Tablets 600mg 60tab 1 po bid Angel Boo 2009 - s prn for Amilcar, 03/28/ pain. take M.D. 2010 with food. Neurontin 10/10/ Hx Capsules 100mg 90cap 1 po qhs x Angel Boo 2008 - s 2 days Amilcar, 03/28/ then 1 po M.D. 2010 bid x 2 days then 1 po tid x 2days then 2 po tid x 2 days then 3 po tid as tolerated Naprosyn 08/01/ Hx Tablets 375mg 45tab 1 PO Up To Angel Boo 2008 - s tid, prn Amilcar, 03/28/ Take With M.D. 2010 Food Valium 06/20/ Hx Tablets 5mg 5tabs 1 po 2 Angel Boo 2008 - Amilcar, 03/28/ prior to M.D. 2010 mri may take one or two more q 1 hr prn anxiety [place] 06/20/ Hx Tablets 10-325mg 45tab 1-2 po qid Angel Boo 2008 - s prn pain Amilcar, 03/28/ M.D. 2010 Robaxin 03/28/ Hx Tablets 500mg 45tab 1-2 po qid Angel Boo 2008 - s prn Amilcar, 04/27/ M.D. 2015 Sumatriptan / Hx Tablets 25mg prn Unknown Succinate 0000 Migraine [place] / Hx Tablets 5-325mg 1-2 by Unknown 0000 - mouth 07/09/ every 4 2016 hours as needed Truvada / Hx Tablets 200-300mg 1 by mouth Unknown 0000 every day (Pep) Isentress / Hx Tablets 400mg 1 by mouth Unknown 0000 twice a day (Pep) Cyclobenzaprine / Hx Tablets 10mg one by Unknown HCL 0000 mouth three times a day as needed spasm Tramadol HCL / Hx Tablets 50mg Unknown - 2017 Invokana / Hx Tablets 100mg Unknown - 2017 Vital Signs Date Vital Result Comment 04/14/2017 Height 66 inches 5'6" Weight 194.00 lb Heart Rate 84 /min BP Systolic Sitting 118 mmHg BP Diastolic Sitting 72 mmHg Pain Level 4 BMI (Body Mass Index) 31.3 kg/m2 06/06/2016 Height 66 inches 5'6" Weight 194.00 lb Heart Rate 98 /min BP Systolic 125 mmHg BP Diastolic 80 mmHg Respiratory Rate 16 /min Body Temperature 98.0 F BMI (Body Mass Index) 31.3 kg/m2 07/11/2015 Height 66 inches 5'6" Weight 191.00 lb Heart Rate 88 /min BP Systolic Sitting 120 mmHg BP Diastolic Sitting 84 mmHg Respiratory Rate 14 /min Body Temperature 97.9 F BMI (Body Mass Index) 30.8 kg/m2 04/27/2015 Height 66 inches 5'6" Weight 188.00 lb Heart Rate 84 /min BP Systolic Sitting 128 mmHg BP Diastolic Sitting 80 mmHg Pain Level 5 BMI (Body Mass Index) 30.3 kg/m2 11/24/2012 Height 66 inches 5'6" Weight 212.00 lb BP Systolic 130 mmHg BP Diastolic 78 mmHg Pain Level 9 starts in right center of back radiated to l leg BMI (Body Mass Index) 34.2 kg/m2 Results Test Date Test Result H/L Range Note Laboratory test finding 07/11/2015 Magnesium 2.1 mg/dL 1.9-2.7 Comp Metabolic Panel 07/11/2015 Sodium 135 mmol/L 133-145 Potassium 3.6 mmol/L 3.5-5.0 Chloride 103 mmol/L 101-111 Co2 Carbon Dioxide 25 mmol/L 22-32 Anion Gap 7 mmol/L 2-11 Glucose 136 mg/dL High 70-100 Blood Urea Nitrogen 9 mg/dL 6-24 Creatinine 0.75 mg/dL 0.51-0.95 BUN/Creatinine Ratio 12.0 8-20 Calcium 9.1 mg/dL 8.6-10.3 Total Protein 7.3 g/dL 6.4-8.9 Albumin 4.4 g/dL 3.2-5.2 Globulin 2.9 g/dL 2-4 Albumin/Globulin Ratio 1.5 1-3 Total Bilirubin 0.30 mg/dL 0.2-1.0 Alkaline Phosphatase 98 U/L 34-104 Alt 30 U/L 7-52 Ast 24 U/L 13-39 Egfr Non- 91.4 >60 Egfr 117.5 >60 1 Surgical Pathology 05/29/2006 Surgical Pathology <SEE 2 NOTE> CBC With Electronic 05/27/2006 White Blood Count 7.1 CUMM 4.8-10.8 Diff Abs Basophils 0 0-0.2 Abs Eosinophils 0.4 0-0.6 Absolute Neutrophil Count 4.2 1.5-7.7 Abs Lymphs 1.9 1.0-4.8 Abs Mononuclear 0.5 0-0.8 Basophil % 0.5 % 0-2 Hematocrit 38 % 35-47 Hemoglobin 13.0 g/dL 12.0-16.0 Eosinophil % 5.2 % 0-6 Gran % 59.6 % 38-83 Lymph % 27.0 % 20-45 Mean Corpuscular HGB Cone 34 g/dL 32-36 Mean Corpuscular Hemoglob 31 pg 27-31 Mean Corpuscular Volume 90 um3 79-97 Mean Platelet Volume 8.4 um3 7.4-10.4 Mononuclear % 7.7 % 1-9 Platelet Count 415 CUMM 150-450 Red Cell Count 4.23 CUMM 4.2-5.4 Redcell Distribution WDTH 15 % 10.5-15 Laboratory test finding 05/27/2006 CG Quantitative < 2.1 MIU/ML 0-5 3 Type And Screen 05/27/2006 Patient Blood Type O POSITIVE Antibody Screen NEGATIVE Specimen Discard Date 06/10/06 4 1 Because ethnic data is not always readily [...] 15-29 5 Kidney failure <15 (or dialysis) 2 --- RUN DATE: 05/30/06 [facility] NMI LIVE PAGE 1 RUN TIME: 1518 Specimen Inquiry RUN USER: INTERFACE [id number] TYSON GABRIEL 20/ <DEP [facility] [place] 05/29> ([id number]) NORMAN Fitzgerald MD,B micheal Boo -- Specimen: [id number] SOUT Spec Date: 05/29/[address]: Angel fleming MD Spec Type: SURGICAL P Received: 05/29/06-0268 Copies to: SPECIMEN DISC L5-S1 HISTORY PRE-OP DIAGNOSIS: L5-S1 herniated disc GROSS DESCRIPTION The specimen is received in formalin labelled Tyson LudivinaIsabella Boy, Disc L5-S1, and consists of a 3.5 x 2.5 x 0.3 cm. aggregate of pink tissue bits. Total, one block. DIAGNOSIS Intervertebral disc, L5-S1, discectomy - Myxoid degeneration. Signed Electronically by: KIKE THIBODEAUX MD 05/30/06 -- -- DEPARTMENT OF PATHOLOGY, [address] [place] [address] [facility] Permit #[id number] Kike Thibodeaux II, M.D. Director Bienvenido Salomon irector -- 3 * MALES: < 5.0 MIU/ML NON FEMALES < 5.0 MIU/ML APPROX GESTATIONAL AGE APPROX HCG RANGE 0-1 WEEK < 5.0-50 1-2 WEEKS 50-500 2-3 WEEKS 100-5000 3-4 WEEKS 500-10,000 1-2 MONTHS 10,000-200,000 2-3 MONTHS 15,000-100,000 PLEASE NOTE: The intended use of this assay is the quantitative determination of HCG in human serum or plasma for the early detection of . These assays should not be used to diagnose any condition unrelated to . If an HCG level is inconsistent with, or unsupported by, clinical evidence, results should be confirmed by an alternate HCG method. . 4 PREADMISSION TESTING SAMPLES FOR BLOOD BANK WILL BE HELD FOR 14 DAYS FROM THE DATE OF COLLECTION *IF* THE FOLLOWING CRITERIA ARE MET: 1) THE PATIENT HAS *NOT* BEEN IN THE LAST 3 MONTHS. 2) THE PATIENT HAS *NOT* BEEN TRANSFUSED IN THE LAST 3 MONTHS. PREADMISSION TESTING SAMPLES WILL *NOT* BE HELD FOR 14 DAYS FROM PATIENTS WHO IN THE LAST 3 MONTHS: 1) HAVE BEEN 2) HAVE BEEN TRANSFUSED THESE PATIENTS *MUST* BE COLLECTED WITHIN 3 DAYS OF THE SURGERY DATE. Procedures Date CPT Code Description Status 04/02/2017 62187 Holter Monitor Review (24 hr)dr bear & maria t Completed only 04/01/2017 72015 ECG Monitor/Recording W/Visual Superimposition Scanning Completed 04/01/2017 07061 ECG Monitor/Recording W/Visual Superimposition Scanning Completed 04/26/2016 Mammogram Completed 10/26/2015 88038 EKG, Interpretation Only Completed 05/29/2006 69510 Laminotomy W/Decomp NRV RT,One Interspace,Lumbar Completed 05/29/2006 35848 Laminotomy W/Decomp NRV RT,One Interspace,Lumbar Completed Encounters Type Date Location Provider CPT E/M Dx Office Visit 04/14/2017 [facility] Bienvenido Esparza M.D. 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 N64.59 Office Visit 10/29/2015 8:39a [facility], Gloria Azlu, 24299 R10.31 Hospitalists Bienvenido E11.9 Office Visit 10/28/2015 8:39a [facility],pc Gloria Niñoima, 69456 R10.31 Hospitalists Bienvenido E11.9 Z72.0 Office Visit 10/27/2015 8:38a [facility] Gloria Azul, 19104 R10.31 Hospitalists Bienvenido E11.9 Office Visit 10/26/2015 8:38a [facility] Gloria Azul, 49436 R10.31 Hospitalists Bienvenido E11.9 Z72.0 Office Visit 10/25/2015 8:00a [facility], HERMELINDA Pope 09385 R10.31 Hospitalists E11.9 Z72.0 Office Visit 10/24/2015 8:37a [facility] [place], [address] R10.31 Assoc, Hospitalists Bienvenido E11.9 Z72.0 Office Visit 07/11/2015 10:50a [facility] Richar [place], 08390 R11.0 Infectious Diseases M.Aneesh Z77.21 R19.7 R00.2 Z77.21 Office Visit 04/27/2015 4:00p [facility]ology [facility] Tyrel Cerda, 23192 H05.223 Of Jose Faria L53.9 F17.210 Office Visit 04/18/2015 3:59p [facility] Tyrel Cerda, 37813 H05.223 Of Jose Faria R21 Office Visit 04/18/2015 3:[facility]p [facility] Wale Lepe, 46701 L53.9 Hospitalists Bienvenido D72.828 Office Visit 04/17/2015 3:20p [facility], Wale Lepe, 18888 L53.9 Hospitalists Bienvenido D72.828 Office Visit 07/14/2013 10:49a [facility], Tuyet Thomas, 17001 682.0 Hospitalmegan Faria 995.91 276.8 250.00 Office Visit 07/13/2013 10:48a [facility] [place], [address] 682.0 [facility] 995.91 276.8 250.00 Office Visit 11/24/2012 3:20p [facility]surgery [facility] Angel Fitzgerald, 48524 721.3 Of [facility] M.D. Office Visit 09/18/2010 10:40a [facility] Angel Fitzgerald 73130 721.3 [facility] M.D. Office Visit 09/05/2010 10:40a [facility] Angel Fitzgerald 69890 721.3 [facility] Office Visit 03/28/2010 1:40p [facility] Angel Fitzgerald 82215 721.3 [facility] Office Visit 11/06/2009 3:00p [facility] Angel Fitzgerald 83870 721.3 [facility] M.D. Office Visit 09/04/2009 10:20a [facility] Angel Fitzgerald 82045 721.3 [facility] M.D. Office Visit 06/20/2009 11:20a [facility] Angel Fitzgerald 19274 721.3 [facility] M.D. Office Visit 02/20/2009 3:20p [facility] Angel Fitzgerald 80978 721.3 [facility] M.D. Office Visit 10/10/2008 4:20p [facility] Angel Fitzgerald, 12258 721.3 [facility] M.D. Office Visit 08/01/2008 10:40a [facility] Angel Fitzgerald 13272 721.3 [facility] M.D. 722.83 Office Visit 07/01/2008 9:40a [facility] Angel Fitzgerald 09390 724.3 [facility] M.D. Office Visit 06/20/2008 9:40a [facility] Angel Fitzgerald 45792 724.3 Of [employer] M.D. Office Visit 05/10/2008 9:20a [facility] Angel Fitzgerald 27510 847.2 Of [facility] M.D. Office Visit 03/28/2008 1:00p [facility] Angel Fitzgerald 42698 847.2 [facility] M.D. Office Visit 12/15/2006 11:00a [facility] Angel Fitzgerald, 19744 721.3 Of Jose [facility] Office Visit 10/10/2006 11:30a [facility] Angel Fitzgerald 73116 722.10 Of [facility] Office Visit 05/26/2006 9:30a [facility] Angel Fitzgerald 08206 722.10 Of [facility] Office Visit 04/25/2006 11:00a [facility] Angel Fitzgerald, 21446 722.10 Of Jose F[facility] Plan of Care Future Appointment(s):05/12/2017 10:00 am - Bienvenido Esparza M.D. at [facility]04/14/2017 - Bienvenido Esparza M.D.M54.5 Low back painNew Therapy: Physical NucvgcpU29.2 CervicalgiaNew Therapy:Physical TherapyFollow up:4 weeks
[2017-04-18 20:10] VITALS: BP 139/89
--- NOTE | 2017-04-18 21:00 | UC ---
Meir Coats Stephanie, scribed for Kinjal Bangura MD on 04/18/17 at 205 . Cardiac HPI - HPI Summary HPI Summary: The pt is a 31 y/o F presenting to with c/o chest pressure that began earlier today, without any provocative activity. . Symptoms include tachycardia , lightheadedness and CP that radiates into her arms. Denies SOB, leg swelling and n/v/d, no fever. . She reports a history of tachycardia that usually spontaneously resolves within a few hours. The pt has been to the ER a few times in the last month for her tachycardia. The CP is rated as a 5 in severity. She reports her A1C as 10.6 last month. The pt uses 20 mg of injectable insulin at night before bed. The pt says her first time with tachycardia was around 03/16/17. The pt has been diabetic for 3-4 years. Last TSH was normal, but she does have a thyroid nodule which is being monitored. Holter showed tachycardic up to 160, but has not had evaluation by a cardilogist. Previously identified low serum magnesium and mild hyponatremia have not been addressed. Risk factors for heart disease: smoker, uncontrolled DM, sedentary lifestyle. - History of Current Complaint Chief Complaint: UCChestPain Stated Complaint: CHEST PAIN Time Seen by Provider: 04/18/17 20:20 Hx Obtained From: Patient Hx Last Menstrual Period: 04/15/17 Onset/Duration: Sudden Onset, Lasting Hours, Still Present Timing: Intermittent Episodes Lasting: - 3-4 hours Current Severity: Moderate Pain Intensity: 5 Character: Fast Aggravating Factor(s): Nothing Alleviating Factor(s): Nothing Associated Signs & Symptoms: Negative: SOB, Nausea/Vomiting, Calf Pain/Swelling - Allergy/Home Medications Allergies/Adverse Reactions: Allergies Allergy/AdvReac Type Severity Reaction Status Date / Time Morphine Allergy Intermediate Hives Verified 04/18/17 20:06 PMH/Surg Hx/FS Hx/Imm Hx Previously Healthy: No - fibromyalgia, chronic back pain. Endocrine History: Diabetes - poorly controlled, takes basal insulin, no bolus insulin Cardiovascular History: Hypertension Neurological History: Other Other Neurological History: fibromyalgia, degenerative disc disease - Surgical History Surgical History: Yes Surgery Procedure, Year, and Place: G[place] 2003 [facility] [place]. LUMBAR laminectomy L5 r/t degenerative disc disease 2006,. SEPTOPLASTY 2013 [place]. Mass removal right bicep 01/2016. Lap appendectomy - Family History Known Family History: Positive: Cardiac Disease, Hypertension, Diabetes, Other - CVA- paternal Family History: aunt w/ h/o CAD - no fam h/o arrhythmia - Social History Occupation: Unemployed, Disabled - temporarily on disability for degenerative disc disease Lives: With Family Alcohol Use: None Alcohol Amount: Weekends only Substance Use Type: None Smoking Status (MU): Current Some Day Smoker Type: Cigarettes Amount Used/How Often: 3-4 CIG/DAY Length of Time of Smoking/Using Tobacco: 5 years Have You Smoked in the Last Year: No When Did the Patient Quit Smoking/Using Tobacco: 3 years Household Exposure Type: Cigarettes - Immunization History Most Recent Influenza Vaccination: 2016 Most Recent Tetanus Shot: 4 years ago?? Most Recent Pneumonia Vaccination: 2016 Review of Systems Constitutional: Negative Skin: Negative Eyes: Negative ENT: Negative Respiratory: Negative Cardiovascular: Chest Pain - radiates to arms, Other - HTN, tachycardia Gastrointestinal: Negative Genitourinary: Negative Motor: Negative Neurovascular: Negative Musculoskeletal: Negative Neurological: Other - lightheadedness Psychological: Negative All Other Systems Reviewed And Are Negative: Yes Physical Exam Triage Information Reviewed: Yes Appearance: Ill-Appearing - overweight, flushed, looks chronically unwell, Pain Distress - mild, Obese Vital Signs: Initial Vital Signs Temp 98 F 04/18/17 20:07 Pulse 110 04/18/17 20:07 Resp 20 04/18/17 20:07 BP 139/89 04/18/17 20:07 Pulse Ox 99 04/18/17 20:07 Eye Exam: Normal Eyes: Positive: Conjunctiva Clear ENT: Positive: Pharynx normal Neck exam: Normal Neck: Positive: Supple, Nontender Respiratory: Positive: Lungs clear, Normal breath sounds Cardiovascular: Positive: No Murmur, Tachycardia Abdomen Description: Positive: Nontender, No Organomegaly, Soft Musculoskeletal Exam: Normal Neurological: Positive: Alert, Muscle Tone Normal Psychological Exam: Normal Skin Exam: Normal Diagnostics - EKG Cardiac Rate: Tachycardia Cardiac Rhythm: Sinus: Normal Ectopy: None ST Segment: Normal - Assessment/Plan Course Of Treatment: The pt is a 31 y/o F presenting to with c/o chest pressure associated with tachycardia that began earlier today. - Differential Diagnoses - Chest Pain Differential Diagnosis/HQI/PQRI: ACS, Pulmonary Edema, Pulmonary Embolism - Clinical Impression Provider Diagnoses: sinus tachycardia NYD. uncontrolled diabetes mellitus. Discharge - Discharge Plan Condition: Stable Disposition: TRANS HIGHER LVL OF CARE FAC Referrals: Zaid DIETZ,Aliya Franklin [Primary Care Provider] - Additional Instructions: As discussed, your heart rate is high at 100 beats per minute, and this has happened several times in the past month. You have agreed to go by private car to the ambulance for further evaluation, because your diabetes is not controlled and you are at risk of having heart problems. GO DIRECTLY TO THE EMERGENCY ROOM FOR EVALUATION PLEASE. The documentation as recorded by the Meir soto Stephanie accurately reflects the service I personally performed and the decisions made by me, Kinjal Bangura MD.
== END 2017-04-18 20:54 | disposition short-term general hospital (02) ==
LOC: UCEAST 19:53
DX: R00.0 Tachycardia, unspecified (principal); M79.7 Fibromyalgia; M54.9 Dorsalgia, unspecified; G89.29 Other chronic pain; I10 Essential (primary) hypertension; E11.65 Type 2 diabetes mellitus with hyperglycemia; M51.36 Other intervertebral disc degeneration, lumbar region; F17.210 Nicotine dependence, cigarettes, uncomplicated; Z79.4 Long term (current) use of insulin; Z88.5 Allergy status to narcotic agent
CPT/HCPCS: 93005; 99212; G0463

== ENCOUNTER 2017-04-18 21:12 | Emergency (ER) | payer OTHER ==
[2017-04-18 22:51] LABS: ABS Basophils 0.1 10^3/ul (0-0.2); ABS Eosinophils 0.3 10^3/ul (0-0.6); ABS Lymphocytes 3.2 10^3/ul (1.0-4.8); ABS Monocytes 0.5 10^3/ul (0-0.8); ABS Neutrophils 4.7 10^3/ul (1.5-7.7); ABS Nucleated RBC 0 10^3/ul; Eosinophil % 3.7 % (0-6); Hematocrit 41 % (35-47); Hemoglobin 13.9 g/dl (12.0-16.0); Lymphocyte % 36.2 % (25-47); Mean Corpuscular HGB Conc 34 g/dl (31-36); Mean Corpuscular Hemoglobin 31 pg (27-31); Mean Corpuscular Volume 91 fL (80-97); Mean Platelet Volume 9 um3 (7.4-10.4); Nucleated Red Blood Cells % 0; Platelet Count 301 10^3/ul (150-450); Red Blood Count 4.56 10^6/ul (4.0-5.4); Red Cell Distribution Width 13 % (10.5-15); White Blood Count 8.7 10^3/ul (3.5-10.8)
[2017-04-18 23:06] VITALS: BP 125/86
[2017-04-18 23:07] LABS: EGFR Non-African American 91.5 (>60)
--- NOTE | 2017-04-19 00:06 | ED ---
HPI Chest Pain - HPI Summary HPI Summary: Patient is a 31-year-old female with a history of diabetes and hypertension who presents to the ED with chief complaint of heart palpitations this date which lasted for approximately 3 hours. This is her third visit to the ED within the past month for same complaint. She had recently had a Holter monitor through her PCP Aliya Mar PA-C which showed only 1 episode of heart rate from 90 to 166 per patient. She states the palpitations started on February 22. She believes she was at rest at the time but has had many episodes at all different activity levels. There have been many episodes since then of heart palpitations and heart racing which has been intermittent. She endorses caffeine use and smoking although is trying to cut back on both. She was recently diagnosed with high blood pressure and was started on lisinopril 10 mg daily. She states her blood pressure is now controlled, but the palpitations remain. She has no other significant cardiac history. Family history includes father having a stroke 7 years ago at the age of 46 and maternal aunt with high blood pressure. She denies any recent illnesses or infections. She denies a history of anxiety. Upon arrival to the ED, her vital signs are stable and she feels comfortable. - History of Current Complaint Chief Complaint: EDDysrhythmPalp Time Seen by Provider: 04/18/17 22:35 Hx Last Menstrual Period: 04/15/17 Pain Intensity: 0 - Additional Pertinent History Primary Care Physician: [id number] - Allergy/Home Medications Allergies/Adverse Reactions: Allergies Allergy/AdvReac Type Severity Reaction Status Date / Time Morphine Allergy Intermediate Hives Verified 04/18/17 21:30 PMH/Surg Hx/FS Hx/Imm Hx Previously Healthy: Yes Endocrine/Hematology History: Reports: Hx Diabetes - TYPE II - IDDM Denies: Hx Thyroid Disease Cardiovascular History: Reports: Hx Hypertension - takes lisinopril 5mg for renal protection Denies: Hx Congestive Heart Failure, Hx Pacemaker/ICD Respiratory History: Denies: Hx Asthma, Hx Chronic Obstructive Pulmonary Disease (COPD) GI History: Reports: Hx Gall Bladder Disease - s/p cholecystectomy, Other GI Disorders - GALL STONES Denies: Hx Ulcer History: Reports: Hx Kidney Stones Denies: Hx Renal Disease Musculoskeletal History: Reports: Hx Back Problems, Hx Orthopedic Injury Denies: Hx Arthritis, Hx Osteoporosis Sensory History: Denies: Hx Contacts or Glasses, Hx Hearing Aid Opthamlomology History: Denies: Hx Contacts or Glasses Neurological History: Reports: Hx Headaches, Hx Migraine Psychiatric History: Denies: Hx Eating Disorder, Hx Panic Disorder, Hx of Violent Episodes Against Others - Cancer History Cancer Type, Location and Year: Has High blood sugar that they are watching; not classified as diabetic at this time. - Surgical History Surgery Procedure, Year, and Place: GENE 2003 [facility]. LUMBAR laminectomy L5 r/t degenerative disc disease 2006,. SEPTOPLASTY 2012 [facility]. Mass removal right bicep 01/2016. Lap appendectomy Hx Anesthesia Reactions: No - Immunization History Hx Pertussis Vaccination: No Immunizations Up to Date: Unable to Obtain/Confirm Infectious Disease History: No Infectious Disease History: Denies: Hx Clostridium Difficile, Hx Hepatitis, Hx Human Immunodeficiency Virus (HIV), Hx of Known/Suspected MRSA, Hx Shingles, Hx Tuberculosis, Hx Known/ Suspected VRE, Hx Known/Suspected VRSA, History Other Infectious Disease, Traveled Outside the [place] in Last 30 Days - Family History Known Family History: Positive: Cardiac Disease, Hypertension, Diabetes, Other - CVA- paternal Family History: aunt w/ h/o CAD - no fam h/o arrhythmia - Social History Occupation: Unemployed Lives: With Family Alcohol Use: None Alcohol Amount: Weekends only Hx Substance Use: No Substance Use Type: Reports: None Hx Tobacco Use: Yes Smoking Status (MU): Current Some Day Smoker Type: Cigarettes Amount Used/How Often: 3-4 CIG/DAY Length of Time of Smoking/Using Tobacco: 5 years Have You Smoked in the Last Year: No Review of Systems Constitutional: Negative Negative: Fever, Chills, Fatigue Eyes: Negative Positive: Palpitations, Chest Pain Respiratory: Negative Positive: no symptoms reported, see HPI Musculoskeletal: Negative Neurological: Negative Psychological: Normal All Other Systems Reviewed And Are Negative: Yes Physical Exam Triage Information Reviewed: Yes Vital Signs On Initial Exam: Initial Vitals Temp Pulse Resp BP Pulse Ox 98.8 F 104 16 138/89 100 04/18/17 21:25 04/18/17 21:25 04/18/17 21:25 04/18/17 21:25 04/18/17 21:25 Vital Signs Reviewed: Yes Appearance: Positive: Well-Appearing, Well-Nourished Skin: Positive: Warm, Skin Color Reflects Adequate Perfusion Head/Face: Positive: Normal Head/Face Inspection Eyes: Positive: EOMI, SHERYL, Conjunctiva Clear Neck: Positive: Supple, Nontender, No Lymphadenopathy Respiratory/Lung Sounds: Positive: Clear to Auscultation, Breath Sounds Present Cardiovascular: Positive: RRR, Pulses are Symmetrical in both Upper and Lower Extremities. Negative: Leg Edema Left, Leg Edema Right Musculoskeletal: Positive: Strength/ROM Intact Neurological: Positive: Speech Normal Psychiatric: Positive: Normal, Affect/Mood Appropriate AVPU Assessment: Alert Diagnostics - Vital Signs Vital Signs Temp Pulse Resp BP Pulse Ox 04/18/17 23:00 81 23 99 04/18/17 22:35 79 19 98 04/18/17 22:33 125/86 04/18/17 21:25 98.8 F 104 16 138/89 100 - Laboratory Lab Results: Lab Results 04/18/17 04/18/17 Range/Units 22:42 22:42 WBC 8.7 (3.5-10.8) 10^3/ul RBC 4.56 (4.0-5.4) 10^6/ul Hgb 13.9 (12.0-16.0) g/dl Hct 41 (35-47) % MCV 91 (80-97) fL MCH 31 (27-31) pg MCHC 34 (31-36) g/dl RDW 13 (10.5-15) % Plt Count 301 (150-450) 10^3/ul MPV 9 (7.4-10.4) um3 Neut % (Auto) 54.1 (38-83) % Lymph % (Auto) 36.2 (25-47) % [place] % (Auto) 5.3 (1-9) % Eos % (Auto) 3.7 (0-6) % Baso % (Auto) 0.7 (0-2) % Absolute Neuts (auto) 4.7 (1.5-7.7) 10^3/ul Absolute Lymphs (auto) 3.2 (1.0-4.8) 10^3/ul Absolute Monos (auto) 0.5 (0-0.8) 10^3/ul Absolute Eos (auto) 0.3 (0-0.6) 10^3/ul Absolute Basos (auto) 0.1 (0-0.2) 10^3/ul Absolute Nucleated RBC 0 10^3/ul Nucleated RBC % 0 Sodium 133 (133-145) mmol/L Potassium 3.8 (3.5-5.0) mmol/L Chloride 103 (101-111) mmol/L Carbon Dioxide 23 (22-32) mmol/L Anion Gap 7 (2-11) mmol/L BUN 8 (6-24) mg/dL Creatinine 0.74 (0.51-0.95) mg/dL Est GFR ( Amer) 117.7 (>60) Est GFR (Non-Af Amer) 91.5 (>60) BUN/Creatinine Ratio 10.8 (8-20) Glucose 249 H (70-100) mg/dL Calcium 9.1 (8.6-10.3) mg/dL Total Bilirubin 0.30 (0.2-1.0) mg/dL AST 22 (13-39) U/L ALT 35 (7-52) U/L Alkaline Phosphatase 94 (34-104) U/L Troponin I 0.00 (<0.04) ng/mL Total Protein 7.2 (6.4-8.9) g/dL Albumin 3.9 (3.2-5.2) g/dL Globulin 3.3 (2-4) g/dL Albumin/Globulin Ratio 1.2 (1-3) Result Diagrams: 04/18/17 22:42 04/18/17 22:42 Lab Statement: Any lab studies that have been ordered have been reviewed, and results considered in the medical decision making process. Chest Pain Course/Dx - Course Course Of Treatment: Upon arrival from urgent care, EKG was immediately performed. EKG read as normal sinus rhythm. Chest x-ray obtained and read by Dr. Russo and myself as negative for any acute cardiopulmonary findings. Labs obtained and all except glucose elevated at 239 were within normal limits including troponin 0.00. She has not yet taken her insulin glargine and has her dose at home. I have discussed all findings with the patient. She was referred to Dr. Albarado, but has not yet made an appointment. I have discussed this case with Dr. Russo. Dr. Russo suggests metoprolol tartrate 12.5 twice daily to help with rate control. I have discussed this option with the patient who agrees with plan and will follow up with her PCP on Friday to discuss the addition of this medication. She will follow up with cardiology as soon as possible. She is given strict return precautions for worsening tachycardia, chest pain or lightheadedness. - Diagnoses Provider Diagnoses: Dysrhythmia, cardiac Discharge - Discharge Plan Condition: Stable Disposition: HOME Prescriptions: Metoprolol Tartrate TAB* [Lopressor TAB*] 12.5 mg PO BID #30 tab Patient Education Materials: Metoprolol (By mouth), Tachycardia (ED) Referrals: Magdy Albarado DO [Medical Doctor] - 3 Days (Intermittent tachycardia/dysrhythmia x 1.5 months with 3 visits to the ED Recently placed on Metoprolol Tartrate 12.5 BID to help with rate control) Aliya Segundo [Primary Care Provider] - 3 Days (New addition to medications) Additional Instructions: Please follow up with Dr. Albarado in cardiology as soon as possible. Follow-up with your primary care physician next week Call Friday morning for appointments for both I have added a new medication for you Metoprolol tartrate 12.5 mg twice daily, this will help control your heart rate If you develop any headaches, lightheadedness or other side effects, immediately discontinue medication and call your doctor If he develops any worsening symptoms including heart palpitations, chest pain, shortness of breath, please return to the ED immediately
[2017-04-19] MEDS ORDERED: Metoprolol Tartrate TAB* 25 MG PO ONE (00:21)
--- NOTE | 2017-04-19 07:57 | RAD ---
HISTORY: Chest pain COMPARISONS: March 30, 2017 VIEWS: 1: frontal portable view of the chest at 10:50 AM FINDINGS: LINES AND TUBES: None. CARDIOMEDIASTINAL SILHOUETTE: The cardiomediastinal silhouette is normal for portable technique. PLEURA: The costophrenic angles are sharp. No pleural abnormalities are noted. LUNG PARENCHYMA: The lungs are clear. ABDOMEN: The upper abdomen is clear. There is no subphrenic gas. BONES AND SOFT TISSUES: No bone or soft tissue abnormalities are noted. IMPRESSION: NO ACTIVE CARDIOPULMONARY DISEASE.
== END 2017-04-19 00:50 | disposition home or self-care (01) ==
LOC: ED 21:12
DX: I49.9 Cardiac arrhythmia, unspecified (principal); R00.2 Palpitations; Z72.0 Tobacco use; Z86.39 Personal history of other endocrine, nutritional and metabolic disease; Z86.79 Personal history of other diseases of the circulatory system
CPT/HCPCS: 36415; 71045; 80053; 84484; 85025; 93005; 99282

== ENCOUNTER 2017-05-28 16:38 | Emergency (ER) | payer OTHER ==
--- NOTE | 2017-05-28 16:49 | UC ---
Cardiac HPI - HPI Summary HPI Summary: Pt presents with left sided chest pain and SOB that began a half hour ago. She tells me that she was sitting comfortably watching TV at home when she suddenly developed a sharp stabbing pain in her left chest. Pain quickly progressed to a squeezing pain that radiated up to her left neck. She became SOB and felt her heart racing. Her daughter drove her directly to . - History of Current Complaint Stated Complaint: CHEST PAIN,SOB Time Seen by Provider: 05/28/17 16:41 Hx Obtained From: Patient Hx Last Menstrual Period: 04/15/17 Onset/Duration: Sudden Onset Initial Severity: Severe Current Severity: Severe Pain Intensity: 8 - Allergy/Home Medications Allergies/Adverse Reactions: Allergies Allergy/AdvReac Type Severity Reaction Status Date / Time morphine Allergy Hives Verified 05/28/17 16:52 Home Medications: Home Medications Hydrocodone/Acetaminophen [Hydrocodone-Acetamin 5-325 mg] 05/28/17 [History] PMH/Surg Hx/FS Hx/Imm Hx Endocrine History: Diabetes Cardiovascular History: Hypertension - Surgical History Surgical History: Yes Surgery Procedure, Year, and Place: [facility]ENE [facility]. LUMBAR laminectomy L5 r/t degenerative disc disease 2006,. SEPTOPLASTY 2013 [facility]. Mass removal right bicep 01/2016. Lap appendectomy - Family History Known Family History: Positive: Cardiac Disease, Hypertension, Diabetes, Other - CVA- paternal Family History: aunt w/ h/o CAD - no fam h/o arrhythmia - Social History Lives: With Family Alcohol Use: None Alcohol Amount: Weekends only Substance Use Type: None Smoking Status (MU): Current Some Day Smoker Type: Cigarettes Amount Used/How Often: 3-4 CIG/DAY Length of Time of Smoking/Using Tobacco: 5 years Have You Smoked in the Last Year: No When Did the Patient Quit Smoking/Using Tobacco: 3 years Household Exposure Type: Cigarettes - Immunization History Most Recent Influenza Vaccination: 2016 Most Recent Tetanus Shot: 4 years ago?? Most Recent Pneumonia Vaccination: 2016 Review of Systems Constitutional: Negative Skin: Negative Eyes: Negative ENT: Negative Respiratory: Shortness Of Breath Cardiovascular: Chest Pain Gastrointestinal: Negative Genitourinary: Negative Motor: Negative Neurovascular: Negative Musculoskeletal: Negative Neurological: Negative Psychological: Negative All Other Systems Reviewed And Are Negative: Yes Physical Exam Triage Information Reviewed: Yes Appearance: Obese, Other: - Appears anxious Vital Signs Reviewed: Yes Neck: Positive: Supple, Nontender, No Lymphadenopathy Respiratory: Positive: Lungs clear, Normal breath sounds, No respiratory distress, No accessory muscle use Cardiovascular: Positive: No Murmur, Pulses Normal, Tachycardia Abdomen Description: Positive: Nontender, No Organomegaly, Soft. Negative: CVA Tenderness (R), CVA Tenderness (L), Distended, Guarding Bowel Sounds: Positive: Present Neurological: Positive: Alert Psychological: Positive: Age Appropriate Behavior, Other: - Appears anxious Skin: Negative: rashes, significant lesion(s) Diagnostics - EKG Cardiac Rate: Tachycardia Cardiac Rhythm: Sinus: Normal ST Segment: Normal - Assessment/Plan Course Of Treatment: EKG with rate of 101bpm, sinus tach, and LVH as read by Dr. Nicole. I discussed with the patient that she should undergo further evaluation in the ED to rule out significant cardiac pathology. I recommended that she go by ambulance, but she declined. She will, however, go to the ED and have her daughter drive her. - Clinical Impression Provider Diagnoses: Chest pain. SOB Discharge - Discharge Plan Condition: Stable Disposition: OTHER Discharge Disposition Comment: To [facility] by private car Referrals: Zaid DIETZ,Aliya Franklin [Primary Care Provider] - Additional Instructions: Please report to [facility] ED for further evaluation of your chest pain. If your symptoms worsen - please machine puller and call 911
[2017-05-28 16:51] VITALS: BP 143/96
--- OUTSIDE RECORDS SUMMARY | 2017-05-28 16:59 | XMS REPORT ---
:1985 External Reference #:[id number] Author Organization [facility] Address [address] [place] [address] Phone [phone] Care Team Providers Name Role Phone HCP given Primary Care Physician Unavailable Payers Type Date Identification Numbers Payment Provider Subscriber Commercial Effective: Policy Number: [id number] [facility] Alo Brunson [address] [place] PayID: [id number] [address] [place] [id number] Problems Date Description Provider Status Onset: 04/24/2016 Type 2 diabetes mellitus Aliya Mar PA Active Onset: 04/24/2016 Essential hypertension Aliya Mar PA Active Onset: 04/24/2016 Degenerative joint disease involving Aliya Mar PA Active multiple joints Onset: 04/24/2016 Migraine without aura, not refractory Aliya Mar PA Active Onset: 05/14/2017 Anxiety state Aliya Mar PA Active Onset: 04/09/2017 Cervical disc disorder Aliya Mar PA Active Onset: 04/02/2017 Type II diabetes mellitus uncontrolled Aliya Mar PA Active Family History Date Family Member(s) Problem(s) Comments Paternal Grandfather Cancer Brain Maternal Grandfather Lung Cancer Maternal Grandmother Colon Cancer Paternal Uncles Diabetes, Nos Maternal Aunts Lung Cancer Maternal Aunts Diabetes, NOS Social History Type Date Description Comments Marital Status Single Marital Status Significant Other Occupation works at [employer] Work Status Currently Working Cigarette Use 04/23/2017 Former Cigarette Smoker Quit 03/2017 ETOH Use Occassional Alcohol Recreational Drug Use Denies Drug Use Smoking 04/23/2017 Patient is a former smoker quit in 2016, restarted but quit again 03/2017 Daily Caffeine Consumes on average 1 cup [...] Form Strength Qnty SIG Indications Ordering Provider Shahriar Active Tablets 100mg 30tabs 1 tab by E11.9 Aure, 8 mouth Bienvenido Phillips every day E11.65 Magnesium 05/21/2017 Active Capsules 500mg 30caps 1 tab by E83.42 Aure, mouth every Bienvenido Phillips day Buspirone HCL 05/14/2017 Active Tablets 10mg 60tabs 1 tab by F41.9 Guilleff, mouth twice Bienvenido Phillips a day for anxiety Amoxicillin 05/01/2017 Active Tablets 875mg 20tabs 1 tab by H66.92 Aure, mouth twice Bienvenido Phillips a day x10 days Fluconazole 05/01/2017 Active Tablets 150mg 2tabs 1 tab by B37.3 Aure, mouth once Bienvenido Phillips for yeast infection, may repeat after 1 week if needed Metoprolol 04/19/2017 Active Tablets 25mg 30tabs take one R00.2 Silcoff , Tartrate half tablet Bienvenido Phillips by mouth twice a day I10 Cyclobenzaprine HCL 04/09/2017 Active Tablets 10mg 90tabs 1 tab by M50.10 Silcoff, mouth Alan, three M.DIsabella times a day as needed for spasms M26.602 Lisinopril 03/18/2017 Active Tablets 10mg 30tabs take 1 I10 Silcoff, tablet Alan, every M.D. morning for blood pressure control Basaglar 02/08/2017 Active Solution 100Unit 15ml 40 units E11.65 Silcoff, Kwikpen Pen-Inject /ML subq once Alan, daily M.D. E11.9 Advocate 01/26/2017 Active Misc 31G X 90units or other E11.9 Silcoff, Insulin Pen 8 mm compatable Alan, Mcdowell needles with M.D. [id number] insulin pens Hydrocodone-A 01/14/2017 Active Tablets 5-325 90tabs 1 tablet by M54.5 Aure, cetaminophen mg mouth up to Alan, every 8 M.D. hours as needed for pain Freestyle 07/23/2016 Active E11.9 Hektor, Hardy Aliya, HERMELINDA Glucometer Freestyle 07/23/2016 Active Misc 100units test twice Silcoff, Lancets daily Bienvenido Phillips Freestyle 07/23/2016 Active Strips 100units test twice Silcoff, Test daily Bienvenido Phillips Claritin-D 12 05/14/2017 - Hx Tablets 5-120 60tabs 1 tab by H65.02 Aure, Hour 05/20/2017 ER 12HR mg mouth twice Alan, daily as M.DIsabella needed for congestion Wrist 04/09/2017 - Hx Misc 1units use as M25.532 Silcoandi, Brace/Suede 04/22/2017 directed for Alan, Ban/Left/M left wrist M.DIsabella edium sprain Amlodipine 03/29/2017 - Hx Tablets 5mg 30tabs take 1 I10 Silcoff, Besylate 04/22/2017 tablet po Alan, daily for M.D. high blood pressure Januvia 02/01/2017 - Hx Tablets 50mg 30tabs 1 tab by E11.9 Silcoff, 05/21/2017 mouth every Alan, day M.D. E11.65 Trulicity 01/14/2017 - Hx Solution 0.75mg/0.5ML 2ml 0.5ml sc E11.9 Silcoff, 01/14/2017 Pen-Inject weekly for Alan, diabetes M.D. Victoza 01/14/2017 - Hx Solution 18mg/3ML 3ml 0.6 mg E11.9 Silcoff, 02/01/2017 Pen-Inject once daily Alan every M.D. night at bedtime for diabetes Hydrocodone- 10/02/2016 - Hx Tablets 5-325mg 30tab 1 tablet M54.2 Sopchak, Acetaminophe 01/01/2017 s by mouth Toño n up to D.O. every 8 hours as needed for pain M54.5 Methylprednisolone [...] 07/18/2016 twice a A. day until awilda CastilloDIsabella Benzonatate 07/08/2016 - Hx Capsules 200mg 30caps 1 by mouth R05 John 07/18/2016 three A. times a Klepack, day [...] Hx Tablets 100mg 30tabs once daily E11.9 Zaid, 11/22/2016 for HERMELINDA Pisano diabetes Lisinopril - Hx Tablets 5mg 30tabs 1 by mouth I10 Aure, 03/18/2017 every day Bienvenido Phillips Immunizations CPT Code Status Date Vaccine Lot # [id number] Given 01/14/2017 Influenza Virus Vaccine, Quadrivalent, Split, [id number] Preservative Free Vital Signs Date Vital Result Comment 05/21/2017 BP Systolic 102 mmHg BP Diastolic 60 mmHg Height 67 inches 5'7" with sneakers Weight 205.00 lb with sneakers BMI (Body Mass Index) 32.1 kg/m2 05/14/2017 BP Systolic 108 mmHg BP Diastolic 60 mmHg Weight 204.00 lb 05/01/2017 BP Systolic 110 mmHg BP Diastolic 70 mmHg Body Temperature 97.6 F 04/23/2017 BP Systolic 112 mmHg BP Diastolic 70 mmHg Weight 210.00 lb 04/09/2017 BP Systolic 130 mmHg pt has not taken BP meds BP Diastolic 82 mmHg pt has not taken BP meds Weight 206.00 lb w/shoes and coat 04/02/2017 BP Systolic 114 mmHg BP Diastolic 70 mmHg 03/29/2017 BP Systolic 117 mmHg BP Diastolic [...] Result H/L Range Note Laboratory test finding 05/20/2017 Hemoglobin A1c (Glyco 10.0 % High 4.0- 5.6 1 HGB) Comp Metabolic Panel 05/20/2017 Sodium 134 mmol/L 133-145 Potassium 4.1 mmol/L 3.5-5.0 Chloride 102 mmol/L 101-111 Co2 Carbon Dioxide 27 mmol/L 22-32 Anion Gap 5 mmol/L 2-11 Glucose 243 mg/dL High 70-100 Blood Urea Nitrogen 11 mg/dL 6-24 Creatinine 0.65 mg/dL 0.51-0.95 BUN/Creatinine Ratio 16.9 8-20 Calcium 9.2 mg/dL 8.6-10.3 Total Protein 6.9 g/dL 6.4-8.9 Albumin 3.7 g/dL 3.2-5.2 Globulin 3.2 g/dL 2-4 Albumin/Globulin Ratio 1.2 1-3 Total Bilirubin 0.40 mg/dL 0.2-1.0 Alkaline Phosphatase 93 U/L 34-104 Alt 30 U/L 7-52 Ast 18 U/L 13-39 Egfr Non- 106.3 >60 Egfr 136.7 >60 2 Laboratory test finding 05/20/2017 Magnesium 1.7 mg/dL Low 1.9-2.7 CBC Auto Diff 04/18/2017 White Blood Count 8.7 10^3/uL 3.5-10.8 Red Blood Count 4.56 10^6/uL 4.0-5.4 Hemoglobin 13.9 g/dL 12.0-16.0 Hematocrit 41 % 35-47 Mean Corpuscular Volume 91 fL 80-97 Mean Corpuscular Hemoglobin 31 pg 27-31 Mean Corpuscular HGB Conc 34 g/dL 31-36 Red Cell Distribution Width 13 % 10.5-15 Platelet Count 301 10^3/uL 150-450 Mean Platelet Volume 9 um3 7.4-10.4 Abs Neutrophils 4.7 10^3/uL 1.5-7.7 Abs Lymphocytes 3.2 10^3/uL 1.0-4.8 Abs Monocytes 0.5 10^3/uL 0-0.8 Abs Eosinophils 0.3 10^3/uL 0-0.6 Abs Basophils 0.1 10^3/uL 0-0.2 Abs Nucleated RBC 0 10^3/uL Granulocyte % 54.1 % 38-83 Lymphocyte % 36.2 % 25-47 Monocyte % 5.3 % 1-9 Eosinophil % 3.7 % 0-6 Basophil % 0.7 % 0-2 Nucleated Red Blood Cells % 0 Comp Metabolic Panel 04/18/2017 Sodium 133 mmol/L 133-145 Potassium 3.8 mmol/L 3.5-5.0 Chloride 103 mmol/L 101-111 Co2 Carbon Dioxide 23 mmol/L 22-32 Anion Gap 7 mmol/L 2-11 Glucose 249 mg/dL High 70-100 Blood Urea Nitrogen 8 mg/dL 6-24 Creatinine 0.74 mg/dL 0.51-0.95 BUN/Creatinine Ratio 10.8 8-20 Calcium 9.1 mg/dL 8.6-10.3 Total Protein 7.2 g/dL 6.4-8.9 Albumin 3.9 g/dL 3.2-5.2 Globulin 3.3 g/dL 2-4 Albumin/Globulin Ratio 1.2 1-3 Total Bilirubin 0.30 mg/dL 0.2-1.0 Alkaline Phosphatase 94 U/L 34-104 Alt 35 U/L 7-52 Ast 22 U/L 13-39 Egfr Non- 91.5 >60 Egfr 117.7 >60 3 Laboratory test 04/18/2017 Troponin-I (TnI) 0.00 ng/mL <0.04 finding Xray 04/09/2017 X-Ray, Wrist, <pending> Complete, Min. Of 3 Views L Laboratory test 03/30/2017 Troponin-I (TnI) 0.01 ng/mL <0.04 finding Laboratory test 03/30/2017 Inr/Protime 0.94 0.77-1.02 finding Partial Thrombo Time PTT 27.1 seconds 26.0-36.3 D Dimer Quantitative < 200 ng/mL Less Than 230 4 Lactic Acid 1.9 mmol/L 0.5-2.0 5 CBC Auto Diff 03/30/2017 White Blood Count 9.5 10^3/uL 3.5-10.8 Red Blood Count 4.81 10^6/uL 4.0-5.4 Hemoglobin 14.9 g/dL 12.0-16.0 Hematocrit 44 % 35-47 Mean Corpuscular Volume 90 fL 80-97 Mean Corpuscular Hemoglobin 31 pg 27-31 Mean Corpuscular HGB Conc 34 g/dL 31-36 Red Cell Distribution Width 13 % 10.5-15 Platelet Count 306 10^3/uL 150-450 Mean Platelet Volume 9 um3 7.4-10.4 Abs Neutrophils 6.2 10^3/uL 1.5-7.7 Abs Lymphocytes 2.5 10^3/uL 1.0-4.8 Abs Monocytes 0.4 10^3/uL 0-0.8 Abs Eosinophils 0.3 10^3/uL 0-0.6 Abs Basophils 0.1 10^3/uL 0-0.2 Abs Nucleated RBC 0 10^3/uL Granulocyte % 65.7 % 38-83 Lymphocyte % 26.1 % 25-47 Monocyte % 4.3 % 1-9 Eosinophil % 2.9 % 0-6 Basophil % 1.0 % 0-2 Nucleated Red Blood Cells % 0.1 Comp Metabolic Panel 03/30/2017 Sodium 132 mmol/L Low 133-145 Potassium 3.7 mmol/L 3.5-5.0 Chloride 102 mmol/L 101-111 Co2 Carbon Dioxide 22 mmol/L 22-32 Anion Gap 8 mmol/L 2-11 Glucose 306 mg/dL High 70-100 Blood Urea Nitrogen 8 mg/dL 6-24 Creatinine 0.69 mg/dL 0.51-0.95 BUN/Creatinine Ratio 11.6 8-20 Calcium 9.1 mg/dL 8.6-10.3 Total Protein 7.6 g/dL 6.4-8.9 Albumin 4.1 g/dL 3.2-5.2 Globulin 3.5 g/dL 2-4 Albumin/Globulin Ratio 1.2 1-3 Total Bilirubin 0.30 mg/dL 0.2-1.0 Alkaline Phosphatase 103 U/L 34-104 Alt 43 U/L 7-52 Ast 29 U/L 13-39 Egfr Non- 99.2 >60 Egfr 127.6 >60 6 Laboratory test finding 03/30/2017 Magnesium 1.7 mg/dL Low 1.9-2.7 Lipase 24 U/L 11.0-82.0 C Reactive Protein 13.03 mg/L High < 5.00 7 Troponin-I (TnI) 0.00 ng/mL <0.04 HCG < 0.60 mIU/mL 8 TSH (Thyroid Stim Horm) 1.09 mcIU/mL 0.34-5.60 Urinalysis Profile 03/30/2017 Urine Color Straw Urine Appearance Clear Urine Specific [place] 1.007 Low 1.010-1.030 Urine pH 6.0 5-9 Urine Urobilinogen Negative Negative Urine Ketones Negative Negative Urine Protein Negative Negative Urine Leukocytes Negative Negative Urine Blood Negative Negative Urine Nitrite Negative Negative Urine Bilirubin Negative Negative Urine Glucose 3+(>=500 mg/dL) Negative Laboratory test finding 03/18/2017 Hemoglobin A1c 9.8 Laboratory test finding 03/16/2017 Troponin-I (TnI) 0.00 ng/mL <0.04 Laboratory test finding 03/15/2017 Troponin-I (TnI) 0.01 ng/mL <0.04 HCG 0.68 mIU/mL 9 B-Type Natriuretic Peptide BNP 21 pg/mL 10 Magnesium 1.7 mg/dL Low 1.9-2.7 Comp Metabolic Panel 03/15/2017 Sodium 132 mmol/L [...] Egfr Non- 116.6 >60 Egfr 150.0 >60 11 CBC Auto Diff 03/15/2017 White Blood Count [...] Red Blood Cells % 0.1 Laboratory test finding 03/15/2017 Inr/Protime 0.98 0.77-1.02 12 Partial Thrombo Time PTT 28.2 seconds 26.0-36.3 D Dimer Quantitative < 200 ng/mL Less Than 230 13 Lactic Acid 1.3 mmol/L 0.5-2.0 14 Urinalysis Profile 03/15/2017 Urine Color Colorless Urine Appearance Clear Urine Specific [place] 1.000 Low 1.010-1.030 Urine pH 6.0 5-9 [...] Egfr Non- 100.9 >60 Egfr 129.8 >60 15 Celiac Panel 12/06/2016 Tissue Transglutaminase IgA Ab <1.2 U/mL 16 Immunoglobulin A 255 mg/dL 61 - 356 Celiac Interpretation See Comment 17 Laboratory test finding 12/06/2016 Vitamin B12 289 pg/mL 180-914 18 Vitamin D Total 25(Oh) 11.8 ng/mL Low 20-50 Tick-Borne Panel PCR Blood 12/06/2016 Babesia microti PCR Negative Negative Babesia ducani Negative Negative Babesia divergens/Mo-1 Negative Negative 19 Anaplasma phagocytophilum Negative Negative Ehrlichia chaffeensis Negative Negative Ehrlichia ewingii/canis Negative Negative Ehrlichia muris-like Negative Negative 20 B. miyamotoi PCR, B Negative Negative 21 Laboratory test finding 12/06/2016 Magnesium 1.8 mg/dL Low 1.9-2.7 TSH (Thyroid Stim Horm) 1.30 mcIU/mL 0.34-5.60 Lyme Western Blot 12/06/2016 Lyme Disease IgG Ab WB Negative Negative Lyme Disease IgG Bands Present No bands detecte <SEE NOTE> kDa 22 Lyme Disease IgM Ab WB Negative Negative Lyme Disease IgM Bands Present No bands detecte <SEE NOTE> kDa 23 Lyme Disease Interpretation See Comment 24 Laboratory test finding 12/06/2016 Erythrocyte Sed Rate 19 mm/Hr High 0- 14 C Reactive Protein 12.53 mg/L High < 5.00 25 Connective Tissue Panel 12/06/2016 Anti-Nuclear Antibody 0.4 U 26 Cyclic Citrullinated Peptide <15.6 U 27 Interpretation See Comment 28 Celiac Hla 12/06/2016 [id number] SEE BELOW 29 [id number] SEE BELOW 30 Celiac Gene Pairs Present? Yes Celiac Gene Interpretation See Comment 31 Laboratory test 09/19/2016 D Dimer Quantitative < 200 ng/mL Less Than 230 32 finding HCG < 0.60 mIU/mL 33 Inr/Protime 09/19/2016 Inr 0.91 0.89-1.11 Laboratory test [...] Egfr Non- 87.4 >60 Egfr 112.4 >60 34 Laboratory test finding 09/19/2016 Lactic Acid 1.7 mmol/L 0.5-2.0 35 CBC Auto Diff 09/19/2016 White Blood Count [...] test 04/24/2016 Hemoglobin A1c 5.8 finding 1 Therapeutic target for the treatment of diabetes mellitus patients is <7% HBA1C, and in selective patients <6.0%. Please refer to [place] [employer] diabetic care guidelines for further information. 2 Because ethnic data is not always readily [...] 15-29 5 Kidney failure <15 (or dialysis) 3 Because ethnic data is not always readily [...] 15-29 5 Kidney failure <15 (or dialysis) 4 Please note: The following may produce a false positive D Dimer test: - Rheumatoid factor greater than 60 IU/ml - Plasma hemoglobin greater than 0.05 gm/dl - Bilirubin greater than 50 mg/dl - Lipids greater than 1000 mg/dl - FDP greater than 20 ug/ml 5 CTS Severe Sepsis and Septic Shock Management Bundle Measure requires all lactic acids initially measuring >2.0 mmol/L be repeated. 6 Because ethnic data is not always readily [...] 15-29 5 Kidney failure <15 (or dialysis) 7 Acute inflammation: >10.00 8 <5.0 Negative 5.0 - 25.0 Indeterminate (Repeat testing recommended after 72 hours) >25.0 Positive Perimenopausal women can display HCG levels of up to 20 mIU/mL 9 <5.0 Negative 5.0 - 25.0 Indeterminate (Repeat testing recommended after 72 hours) >25.0 Positive Perimenopausal women can display HCG levels of up to 20 mIU/mL 10 >100 to <200 pg/mL: likely compensated congestive heart failure (CHF) 200 to 400 pg/mL: likely moderate CHF >400 pg/mL: likely moderate to severe CHF 11 Because ethnic data is not always readily [...] 15-29 5 Kidney failure <15 (or dialysis) 12 Please note the change in INR reference range effective 17. 13 Please note: The following may produce a false positive D Dimer test: - Rheumatoid factor greater than 60 IU/ml - Plasma hemoglobin greater than 0.05 gm/dl - Bilirubin greater than 50 mg/dl - Lipids greater than 1000 mg/dl - FDP greater than 20 ug/ml 14 [facility] Severe Sepsis and Septic Shock Management Bundle Measure requires all lactic acids initially measuring >2.0 mmol/L be repeated. 15 Because ethnic data is not always readily [...] 15-29 5 Kidney failure <15 (or dialysis) 16 REFERENCE VALUE <4.0 (Negative) Test Performed by: [place] [address] 17 Negative serology. Celiac disease unlikely. However, approximately 10% of patients with celiac disease are seronegative. Also, patients who are already adhering to a gluten-free diet may be seronegative. If celiac disease is highly clinically suspected, consider HLA-DQ typing. Test Performed by: [facility] - [place] [id number] 18 Normal Range 180 to 914 Indeterminate Range 145 to 180 Deficient Range <145 19 ADDITIONAL INFORMATION This test was developed and its performance characteristics determined by [facility] in a manner consistent with CLIA requirements. This test has not been cleared or approved by the U.S. Food and Drug Administration. 20 ADDITIONAL INFORMATION This test was developed and its performance characteristics determined by [facility] in a manner consistent with CLIA requirements. This test has not been cleared or approved by the U.S. Food and Drug Administration. 21 ADDITIONAL INFORMATION This test was developed and its performance characteristics determined by [facility] in a manner consistent with CLIA requirements. This test has not been cleared or approved by the U.S. Food and Drug Administration. Test Performed by: [facility] - [address] [id number] 22 No bands detected 23 No bands detected 24 Specific serologic response to B. burgdorferi infection [...] test (e.g., EIA). Test Performed by: [facility] - [address] [id number] 25 Acute inflammation: >10.00 26 REFERENCE VALUE <=1.0 (Negative) 27 REFERENCE VALUE <20.0 (Negative) 28 Tests for antibodies to dsDNA and SCOOTER antigens are not performed automatically unless the MP result is > or= 3.0 U. Studies performed at [facility] indicate that positive MP results <3.0 U are rarely accompanied by positive second order tests. Test Performed by: [facility] - [address] [id number] 29 RESULT: :,05 REFERENCE VALUE Not Applicable 30 RESULT: 02:01,03:01 DQ Serologic Equivalent: 2,7 REFERENCE VALUE Not Applicable 31 These genes are permissive for celiac disease. The absence of HLA celiac permissive genes would make the presence of celiac disease unlikely. However, these genes can also be present in the normal population. ADDITIONAL INFORMATION Method: Molecular typing of HLA antigens performed using reverse SSOP and/or SSP methods, reported as serological equivalents and low to medium resolution molecular values. Performing Laboratory CLIA# [id number] Test Performed by: [place] [id number] 32 Please note: The following may produce a false positive D Dimer test: - Rheumatoid factor greater than 60 IU/ml - Plasma hemoglobin greater than 0.05 gm/dl - Bilirubin greater than 50 mg/dl - Lipids greater than 1000 mg/dl - FDP greater than 20 ug/ml 33 <5.0 Negative 5.0 - 25.0 Indeterminate (Repeat testing recommended after 72 hours) >25.0 Positive Perimenopausal women can display HCG levels of up to 20 mIU/mL 34 Because ethnic data is not always readily [...] 15-29 5 Kidney failure <15 (or dialysis) 35 [facility] Severe Sepsis and Septic Shock Management Bundle Measure requires all lactic acids initially measuring >2.0 mmol/L be repeated. Procedures Date CPT Code Description Status 04/09/2017 52229 X-Ray Wrist Three Views Completed 04/02/2017 04406 Brief Emotional/Behav Assessment W/ Scoring Doc Per Completed Standard Inst 03/29/2017 39290 Electrocardiogram Complete Completed 02/21/2017 Diabetic Foot Exam Completed 07/08/2016 00038 X-Ray Chest Two Views Completed Encounters Type Date Location Provider CPT E/M Dx Office Visit 05/21/2017 9:00a [place] [address] E11.65 E83.42 I10 Office Visit 05/14/2017 1:00p [place] [address] H65.02 M26.602 E11.65 I10 F41.9 Z79.4 Office Visit 05/01/2017 11:05a [place] [address] H66.92 B37.3 E11.65 I10 Office Visit 04/23/2017 2:00p [place] [address] E11.65 I10 R00.2 M50.10 Office Visit 04/09/2017 1:20p [place] [address] M25.532 E11.65 M50.10 S63.522A Y93.23 Office Visit 04/02/2017 10:40a [place] [address] E11.65 I10 R00.2 M54.5 Z13.89 F17.210 Office Visit 03/29/2017 10:30a Main Office Cassandra Goodrich [address]11 E11.9 Z79.4 I10 R00.0 M54.5 M25.512 E07.89 Office Visit 03/18/2017 4:00p Main Office Cassandra Goodrich [address] E11.9 R00.2 I10 Z79.4 E11.65 Office Visit 01/14/2017 1:30p [place] [address] E11.9 M54.5 I10 Z23 Office Visit 12/02/2016 4:45p Main Office Toño Fairbanks D.O. 34740 E11.9 M54.5 M43.06 J34.3 Office Visit 10/02/2016 2:40p [place] [address] M54.2 M54.5 N63 E11.9 Office Visit 07/23/2016 9:45a [place] [address] E11.9 N64.4 N63 I10 Office Visit 07/08/2016 3:25p Main Office John Castillo M.D. 47910 R05 J20.9 Office Visit 05/07/2016 2:35p [place] [address] N64.4 N63 Office Visit 04/24/2016 1:40p [place] [address] N63 N64.4 E11.9 I10 M15.0 G43.009 Plan of Care Future Appointment(s):07/22/2017 11:45 am - Aliya Mar PA at [id number] - Aliya Mar PAE11.65 Type 2 diabetes mellitus with hyperglycemiaNew Medication:Januvia 100 mgComments:Glucose readings at home gradually improving, but A1C still high at 10.0 (was 9.8 in February). Discussed increasing exercise and improving diet (specifically limiting carbs). Will increase Januvia from 50mg to 100mg and increase Basaglar from 30 units to 40 units (may gradually increase few units at a time). Pt to continue checking glucose at home. Recheck in 3 months w repeat A1C. May consider CGM.Follow up:f/ u 2-3 month w A1CE83.42 HypomagnesemiaNew Medication:Magnesium 500 mgComments: Mildly low magnesium, will start supplement.I10 Essential (primary) hypertensionComments:BP very well controlled now on metoprolol and lisinopril. Continue to monitor closely. Pt instructedto avoid decongestants (see HPI).
== END 2017-05-28 16:55 ==
LOC: UCEAST 16:38
DX: R07.89 Other chest pain (principal); R06.02 Shortness of breath; R00.0 Tachycardia, unspecified; E11.9 Type 2 diabetes mellitus without complications; I10 Essential (primary) hypertension; Z88.5 Allergy status to narcotic agent; Z87.891 Personal history of nicotine dependence
CPT/HCPCS: 93005; 99212; G0463

== ENCOUNTER 2017-05-28 17:09 | Emergency (ER) | payer OTHER ==
[2017-05-28 17:19] VITALS: BP 154/99
== END 2017-05-28 19:34 | disposition left against medical advice (07) ==
LOC: ED 17:09
DX: R07.9 Chest pain, unspecified (principal); Z53.21 Procedure and treatment not carried out due to patient leaving prior to being seen by health care provider
CPT/HCPCS: 93005

== ENCOUNTER 2017-06-13 20:06 | Emergency (ER) | payer OTHER ==
[2017-06-13 20:28] VITALS: BP 138/90
[2017-06-13] MEDS ORDERED: Sulfamethox/Trimethoprim DS 800/160* TAB PO ONE (20:42)
--- NOTE | 2017-06-13 21:29 | UC ---
Roger Coats Nikita, scribed for Juan Villa MD on 06/13/17 at 2043 . Skin Complaint HPI - HPI Summary HPI Summary: This patient is a 31 year old F presenting to [facility] with a chief complaint of lesions since a couple weeks ago. The patient rates the pain 0/10 in severity. Symptoms aggravated by nothing. Symptoms alleviated by nothing. Patient reports small abscess and cellulitis in the L breast and R hip. Patient denies fever and chills. The patient reports that one of her nephews has MRSA and she has been taking care of him. - History of Current Complaint Chief Complaint: UCSkin Time Seen by Provider: 06/13/17 20:34 Stated Complaint: RASH Hx Obtained From: Patient Hx Last Menstrual Period: 3 wks ago Onset/Duration: Sudden Onset, Lasting Weeks, Still Present Skin Exposure Onset/Duration: Weeks Ago Timing: Constant Current Severity: None Pain Intensity: 0 Pain Scale Used: 0-10 Numeric Location: Other - L breast and R hip Aggravating Factor(s): Nothing Alleviating Factor(s): Nothing - Allergy/Home Medications Allergies/Adverse Reactions: Allergies Allergy/AdvReac Type Severity Reaction Status Date / Time morphine Allergy Hives Verified 06/13/17 20:28 Review of Systems Constitutional: Other - denies fever and chills Skin: Other - small abscess and cellulitis in the L breast and R hip All Other Systems Reviewed And Are Negative: Yes PMH/Surg Hx/FS Hx/Imm Hx Endocrine History: Other Other Endocrine History: No DM Cardiovascular History: Other Other Cardiovascular History: No CAD, HTN - Surgical History Surgical History: Yes Surgery Procedure, Year, and Place: GENE 2003 [facility] [place]. LUMBAR laminectomy L5 r/t degenerative disc disease 2006,. SEPTOPLASTY 2013 [place]. Mass removal right bicep 01/2016. Lap appendectomy - Family History Known Family History: Positive: Cardiac Disease, Hypertension, Diabetes, Other - CVA- paternal Family History: aunt w/ h/o CAD - no fam h/o arrhythmia - Social History Alcohol Use: Occasionally Alcohol Amount: Weekends only Substance Use Type: None Smoking Status (MU): Former Smoker Type: Cigarettes Amount Used/How Often: 3-4 CIG/DAY Length of Time of Smoking/Using Tobacco: 5 years Have You Smoked in the Last Year: No When Did the Patient Quit Smoking/Using Tobacco: 3 years Household Exposure Type: Cigarettes - Immunization History Most Recent Influenza Vaccination: 2016 Most Recent Tetanus Shot: 4 years ago?? Most Recent Pneumonia Vaccination: 2016 Physical Exam - Summary Physical Exam Summary: VITAL SIGNS: Reviewed. GENERAL: ~Patient is a well-developed and nourished FEMALE who is lying comfortable in the stretcher. ~Patient is not in any acute respiratory distress. HEAD AND FACE: Normocephalic EYES: PERRLA, EOMI x 2. EARS: Hearing grossly intact. MOUTH: Oropharynx within normal limits. NECK: Supple, trachea is midline, no adenopathy, no JVD, no carotid bruit. CHEST: Symmetric, no tenderness at palpation LUNGS: Clear to auscultation bilaterally. No wheezing or crackles. CVS: Regular rate and rhythm, S1 and S2 present, no murmurs or gallops appreciated. ABDOMEN: Soft, non-tender. Bowel sounds are normal. No abdominal abnormal pulsations. EXTREMITIES: Full ROM in all major joints, no edema, no cyanosis or clubbing. NEURO: Alert and oriented x 3. No acute neurological deficits. Speech is normal and follows commands. SKIN: Dry and warm. On the L breast, bellow the nipple, has 3 small areas with erythema, and 1 on the R hip. There is a lot of induration of the skin but no abscess formation at this point. Triage Information Reviewed: Yes Vital Signs: Initial Vital Signs Temp 98.1 F 06/13/17 20:25 Pulse 93 06/13/17 20:25 Resp 18 06/13/17 20:25 BP 138/90 06/13/17 20:25 Pulse Ox 99 06/13/17 20:25 Course/Dx - Course Course Of Treatment: Patient was given Bactrin in the UC and a Rx was sent to her pharmacy. The patient was found to have increased BP in UC. The patient will follow up with PCP for better control of BP. I discussed all the findings and test results with the patient. Patient was instructed to return to the urgent care or go to ER immediately if any of the symptoms return or worsens. Plan of care was discussed with the patient, and patient understands and agrees. All questions were answered to patient satisfaction. There were no further complaints or concerns. - Differential Diagnoses - Skin Complaint Differential Diagnoses: Abscess, Cellulitis - Diagnoses Provider Diagnoses: small abscess and cellulitis Discharge - Sign-Out/Discharge Documenting (check all that apply): Discharge - Discharge Plan Condition: Stable Disposition: HOME Prescriptions: Sulfamethox/Trimethoprim DS* [Bactrim DS 800/160 TAB*] 1 tab PO BID #19 tab Patient Education Materials: Cellulitis (DC), Abscess (ED) Referrals: Aliya Segundo [Primary Care Provider] - Additional Instructions: FOLLOW UP WITH YOUR PRIMARY CARE PROVIDER WITHIN ONE WEEK FOR HIGH BLOOD PRESSURE NOTED TODAY. RETURN TO URGENT CARE OR THE ED FOR ANY WORSENING OR NEW SYMPTOMS. - Billing Disposition and Condition Condition: STABLE Disposition: HOME The documentation as recorded by the Roger soto Nikita accurately reflects the service I personally performed and the decisions made by Allen garcia Walter, MD.
== END 2017-06-13 20:54 | disposition home or self-care (01) ==
LOC: UCEAST 20:06
DX: N61.1 Abscess of the breast and nipple (principal); L02.415 Cutaneous abscess of right lower limb; L03.115 Cellulitis of right lower limb; Z88.5 Allergy status to narcotic agent; Z87.891 Personal history of nicotine dependence
CPT/HCPCS: 99212; A9270-GY; G0463

== ENCOUNTER 2017-07-07 19:45 | Emergency (ER) | payer OTHER ==
[2017-07-07 19:52] VITALS: BP 130/86
--- OUTSIDE RECORDS SUMMARY | 2017-07-07 19:53 | XMS REPORT ---
:1985 External Reference #:[id number] Author Organization [facility] Address [address] [place] [address] Phone [phone] Care Team Providers Name Role Phone HCP given Primary Care Physician Unavailable Payers Type Date Identification Numbers Payment Provider Subscriber Commercial Effective: Policy Number: [id number] [facility] Alo Brunson 2016 [place] PayID: [id number] [address] [place] [id number] Problems Date Description Provider Status Onset: 04/24/2016 [...] Marital Status Significant Other Occupation works at [employer] Work Status Currently Working Cigarette Use 04/23/2017 [...] Form Strength Qnty SIG Indications Ordering Provider Cephalexin 06/18/19 Active Tablets 500mg 21tabs 1 tab by L02.412 Silcoff, 18 mouth 3x/day Alan, x7 days; for M.D. skin infection Ibuprofen 05/24/19 Active Tablets 600mg 90tabs 1 by mouth M79.602 Silcoff, 18 every 6 Alan, hours as M.D. needed for left shoulder pain, try for 1 week Januvia 05/21/19 Active Tablets 100mg 30tabs 1 tab by E11.9 Silcoff, 18 mouth every Alan, day M.D. E11.65 Magnesium 05/21/2017 Active Capsules 500mg 30caps 1 tab by E83.42 Silcoff, mouth every Alan, M.D. day Buspirone HCL 05/14/2017 Active Tablets 10mg 60tabs 1 tab by F41.9 Silcoff, mouth twice Bienvenido Phillips a day for anxiety Fluconazole 05/01/2017 Active Tablets 150mg 2tabs 1 tab by B37.3 Silcoff, mouth once Bienvenido Phillips for yeast infection, may repeat after 1 week if needed Metoprolol 04/19/2017 Active Tablets 25mg 30tabs take one R00.2 Silcoff , Tartrate half tablet Bienvenido Phillips by mouth twice a day I10 Cyclobenzaprine HCL 04/09/2017 Active Tablets 10mg 90tabs 1 tab by M50.10 Silcoff, mouth Alan, three M.D. times a day as needed for spasms M26.602 Lisinopril 03/18/2017 Active Tablets 10mg 30tabs take 1 I10 Silcoff, tablet Alan, every M.D. morning for blood pressure control Basaglar 02/08/2017 Active Solution 100Unit 15ml 40 units E11.65 Silrivka Kwikpen Pen-Inject /ML subq once Alan, daily M.DIsabella E11.9 Advocate 01/26/2017 Active Misc 31G X 90units or other E11.9 Silcoff, Insulin Pen 8 mm compatable Alan, [place] needles with M.D. [id number] insulin pens Hydrocodone-Ac 01/14/2017 Active Tablets 5-325 90tabs 1 tablet by M54.5 Aure, etaminophen mg mouth up to Alan, every 8 M.D. hours as needed for pain Freestyle 07/23/2016 Active E11.9 Hektor, HERMELINDA Gabriel Glucometer Freestyle 07/23/2016 Active Misc 100units test twice Aure Lancets daily Bienvenido Phillips Freestyle Test 07/23/2016 Active Strips 100units test twice E11.65 Aure, daily Bienvenido Phillips Sulfamethoxazo Active Tablets 800-1 take 1 Unknown le/Trimethopri 60mg tablet by m DS mouth twice a day Claritin-D 12 05/14/2017 - Hx Tablets 5-120 60tabs 1 tab by H65.02 Aure, Hour 05/20/2017 ER 12HR mg mouth twice Alan, daily as M.D. needed for congestion Amoxicillin 05/01/2017 - Hx Tablets 875mg 20tabs 1 tab by H66.92 Aure, 05/22/2017 mouth twice Alan, a day x10 M.D. days Wrist 04/09/2017 - Hx Misc 1units use as M25.532 Aure Brace/Suede 04/22/2017 directed for Ban Phillips/Left/Me left wrist M.DIsabella dium sprain Amlodipine 03/29/2017 - Hx Tablets 5mg 30tabs take 1 I10 Silrivka, Besylate 04/22/2017 tablet po Alan, daily for M.D. high blood pressure Januvia 02/01/2017 - Hx Tablets 50mg 30tabs 1 tab by E11.9 Kiaracoandi, 05/21/2017 mouth every Alan, day M.D. E11.65 Trulicity 01/14/2017 - Hx Solution 0.75mg/0.5ML 2ml 0.5ml sc E11.9 uAre, 01/14/2017 Pen-Inject weekly for veronica Phillips M.D. Victoza 01/14/2017 - Hx Solution 18mg/3ML 3ml 0.6 mg E11.9 Silcoff, 02/01/2017 Pen-Inject once daily Alan, every M.D. night at bedtime for diabetes Hydrocodone- 10/02/2016 - Hx Tablets 5-325mg 30tab 1 tablet M54.2 Sopchak, Acetaminophe 01/01/2017 s by mouth ramona Lundberg up to D.O. every 8 hours as needed for pain M54.5 Methylprednisolone 10/02/2016 - Hx TBPK 4mg 1units use as M54.2 Hektor, 10/07/2016 directed on HERMELINDA Pisano package M54.5 Onetouch Ultra 07/23/2016 - Hx Kit w/Device 1units test twice E11.9 [employer], System 07/23/2016 a day HERMELINDA Pisano Ondansetron [...] Hx Tablets 100mg 30tabs once daily E11.9 Hekvini, 11/22/2016 for HERMELINDA Pisano diabetes Lisinopril - Hx Tablets 5mg 30tabs 1 by mouth I10 Aure, 03/18/2017 every day Bienvenido Phillips Immunizations CPT Code Status Date Vaccine Lot # [id number] Given 01/14/2017 Influenza Virus Vaccine, Quadrivalent, Split, [id number] Preservative Free Vital Signs Date Vital Result Comment 06/17/2017 BP Systolic 116 mmHg BP Diastolic 72 mmHg Weight 208.00 lb 06/04/2017 BP Systolic 120 mmHg BP Diastolic 80 mmHg Weight 207.00 lb w/shoes 05/23/2017 BP Systolic 128 mmHg BP Diastolic 78 mmHg 05/21/2017 BP Systolic 102 mmHg BP Diastolic [...] Result H/L Range Note Laboratory test finding 05/21/2017 Hemoglobin A1c 9.5 Pthi 05/21/2017 PTH Intact 3.2 pmol/L 1.3-9.3 Calcium (PTH Intact) 9.2 mg/dL 8.6-10.3 Lipid Profile (Trig/Chol/HDL) 05/21/2017 Triglycerides 57 mg/dL 1 Cholesterol 79 mg/dL 2 HDL Cholesterol 41.0 mg/dL 3 LDL Cholesterol 27 mg/dL 4 Catecholamine 24HR Urine Fract 05/21/2017 Urine Collection Duration 24 h Urine Total Volume 1400 mL Urine Norepinephrine 66 mcg/24h 15-80 Urine Epinephrine 3.2 mcg/24h <21 Urine Dopamine 277 mcg/24h 65-400 5 Urine Metanephrines 24HR 05/21/2017 Urine Metanephrine 122 mcg/24h 6 Urine Normetanephrine 328 mcg/24h 7 Urine Total Metanephrines 450 mcg/24h 8 Urine Collection Duration 24 h Urine Volume 1400 mL 9 Laboratory test finding 05/20/2017 Hemoglobin A1c (Glyco 10.0 % High 4.0- 5.6 10 HGB) Comp Metabolic Panel 05/20/2017 Sodium 134 [...] Egfr Non- 106.3 >60 Egfr 136.7 >60 11 Laboratory test finding 05/20/2017 Magnesium 1.7 mg/dL Low 1.9-2.7 Laboratory test finding 04/18/2017 Troponin-I (TnI) 0.00 ng/mL <0.04 Comp Metabolic Panel 04/18/2017 Sodium 133 mmol/L [...] Egfr Non- 91.5 >60 Egfr 117.7 >60 12 CBC Auto Diff 04/18/2017 White Blood Count [...] 0-2 Nucleated Red Blood Cells % 0 Xray 04/09/2017 X-Ray, Wrist, <pending> Complete, Min. Of 3 Views L Laboratory test 03/30/2017 Troponin-I (TnI) 0.01 ng/mL <0.04 finding Laboratory test 03/30/2017 Inr/Protime 0.94 0.77-1.02 finding Partial Thrombo Time PTT 27.1 seconds 26.0-36.3 D Dimer Quantitative < 200 ng/mL Less Than 230 13 Lactic Acid 1.9 mmol/L 0.5-2.0 14 CBC Auto Diff 03/30/2017 White Blood Count [...] 0-2 Nucleated Red Blood Cells % 0.1 Urinalysis Profile 03/30/2017 Urine Color Straw Urine Appearance Clear Urine Specific [place] 1.007 Low 1.010-1.030 Urine pH 6.0 5-9 Urine Urobilinogen Negative Negative Urine Ketones Negative Negative Urine Protein Negative Negative Urine Leukocytes Negative Negative Urine Blood Negative Negative Urine Nitrite Negative Negative Urine Bilirubin Negative Negative Urine Glucose 3+(>=500 mg/dL) Negative Laboratory test finding 03/30/2017 Magnesium 1.7 mg/dL Low 1.9-2.7 Lipase 24 U/L 11.0-82.0 C Reactive Protein 13.03 mg/L High < 5.00 15 Troponin-I (TnI) 0.00 ng/mL <0.04 HCG < 0.60 mIU/mL 16 TSH (Thyroid Stim Horm) 1.09 mcIU/mL 0.34-5.60 Comp Metabolic Panel 03/30/2017 Sodium 132 mmol/L [...] Egfr Non- 99.2 >60 Egfr 127.6 >60 17 Laboratory test finding 03/18/2017 Hemoglobin A1c 9.8 Laboratory test finding 03/16/2017 Troponin-I (TnI) 0.00 ng/mL <0.04 Laboratory test finding 03/15/2017 Inr/Protime 0.98 0.77-1.02 18 Partial Thrombo Time PTT 28.2 seconds 26.0-36.3 D Dimer Quantitative < 200 ng/mL Less Than 230 19 Lactic Acid 1.3 mmol/L 0.5-2.0 20 CBC Auto Diff 03/15/2017 White Blood Count [...] Egfr Non- 116.6 >60 Egfr 150.0 >60 21 Laboratory test finding 03/15/2017 Troponin-I (TnI) 0.01 ng/mL <0.04 HCG 0.68 mIU/mL 22 B-Type Natriuretic Peptide BNP 21 pg/mL 23 Magnesium 1.7 mg/dL Low 1.9-2.7 Urinalysis Profile 03/15/2017 Urine Color Colorless Urine Appearance Clear Urine Specific [place] 1.000 Low 1.010-1.030 Urine pH 6.0 5-9 [...] Hemoglobin A1c 9.2 Laboratory test finding 12/06/2016 Vitamin B12 289 pg/mL 180-914 24 Vitamin D Total 25(Oh) 11.8 ng/mL Low 20-50 Tick-Borne Panel PCR Blood 12/06/2016 Babesia microti PCR Negative Negative Babesia ducani Negative Negative Babesia divergens/Mo-1 Negative Negative 25 Anaplasma phagocytophilum Negative Negative Ehrlichia chaffeensis Negative Negative Ehrlichia ewingii/canis Negative Negative Ehrlichia muris-like Negative Negative 26 B. miyamotoi PCR, B Negative Negative 27 Laboratory test finding 12/06/2016 Magnesium 1.8 mg/dL Low 1.9-2.7 TSH (Thyroid Stim Horm) 1.30 mcIU/mL 0.34-5.60 Lyme Western Blot 12/06/2016 Lyme Disease IgG Ab WB Negative Negative Lyme Disease IgG Bands Present No bands detecte <SEE NOTE> kDa 28 Lyme Disease IgM Ab WB Negative Negative Lyme Disease IgM Bands Present No bands detecte <SEE NOTE> kDa 29 Lyme Disease Interpretation See Comment 30 CBC Auto Diff 12/06/2016 White Blood Count [...] Egfr Non- 100.9 >60 Egfr 129.8 >60 31 Celiac Panel 12/06/2016 Tissue Transglutaminase IgA Ab <1.2 U/mL 32 Immunoglobulin A 255 mg/dL 61 - 356 Celiac Interpretation See Comment 33 Celiac Hla 12/06/2016 Hla-Dqa1 SEE BELOW 34 [id number]-DQB1 SEE BELOW 35 Celiac Gene Pairs Present? Yes Celiac Gene Interpretation See Comment 36 Connective Tissue Panel 12/06/2016 Anti-Nuclear Antibody 0.4 U 37 Cyclic Citrullinated Peptide <15.6 U 38 Interpretation See Comment 39 Laboratory test finding 12/06/2016 Erythrocyte Sed Rate 19 mm/Hr High 0- 14 C Reactive Protein 12.53 mg/L High < 5.00 40 Laboratory test 09/19/2016 D Dimer Quantitative < 200 ng/mL Less Than 230 41 finding HCG < 0.60 mIU/mL 42 Inr/Protime 09/19/2016 Inr 0.91 0.89-1.11 Laboratory test [...] Egfr Non- 87.4 >60 Egfr 112.4 >60 43 Laboratory test finding 09/19/2016 Lactic Acid 1.7 mmol/L 0.5-2.0 44 CBC Auto Diff 09/19/2016 White Blood Count [...] test 04/24/2016 Hemoglobin A1c 5.8 finding 1 Desirable: <150 Borderline High: 150-199 High: 200-499 Very High: >500 2 Desirable: <200 Borderline High: 200-239 High: >239 3 Low: <40 Desirable: 40-60 High: >60 4 Desirable: <100 Near Optimal: 100-129 Borderline High: 130-159 High: 160-189 Very High: >189 5 ADDITIONAL INFORMATION This test was developed and its performance characteristics determined by [facility] in a manner consistent with CLIA requirements. This test has not been cleared or approved by the U.S. Food and Drug Administration. Test Performed by: [facility] [address] [place] [address], [place] [address] 6 REFERENCE VALUE 30-180 (Normotensive) <400 (Hypertensive) 7 REFERENCE VALUE 111-419 (Normotensive) <900 (Hypertensive) 8 REFERENCE VALUE 149-535 (Normotensive) <1300 (Hypertensive) 9 ADDITIONAL INFORMATION This test was developed and its performance characteristics determined by [facility] in a manner consistent with CLIA requirements. This test has not been cleared or approved by the U.S. Food and Drug Administration. Test Performed by: [facility] [address] [place] [address] 10 Therapeutic target for the treatment of diabetes mellitus patients is <7% HBA1C, and in selective patients <6.0%. Please refer to [place] [employer] diabetic care guidelines for further information. 11 Because ethnic data is not always [...] 5 Kidney failure <15 (or dialysis) 12 Because ethnic data is not always readily [...] 15-29 5 Kidney failure <15 (or dialysis) 13 Please note: The following may produce a false positive D Dimer test: - Rheumatoid factor greater than 60 IU/ml - Plasma hemoglobin greater than 0.05 gm/dl - Bilirubin greater than 50 mg/dl - Lipids greater than 1000 mg/dl - FDP greater than 20 ug/ml 14 [facility] Severe Sepsis and Septic Shock Management Bundle Measure requires all lactic acids initially measuring >2.0 mmol/L be repeated. 15 Acute inflammation: >10.00 16 <5.0 Negative 5.0 - 25.0 Indeterminate (Repeat testing recommended after 72 hours) >25.0 Positive Perimenopausal women can display HCG levels of up to 20 mIU/mL 17 Because ethnic data is not always readily [...] 15-29 5 Kidney failure <15 (or dialysis) 18 Please note the change in INR reference range effective 17. 19 Please note: The following may produce a false positive D Dimer test: - Rheumatoid factor greater than 60 IU/ml - Plasma hemoglobin greater than 0.05 gm/dl - Bilirubin greater than 50 mg/dl - Lipids greater than 1000 mg/dl - FDP greater than 20 ug/ml 20 [facility] Severe Sepsis and Septic Shock Management Bundle Measure requires all lactic acids initially measuring >2.0 mmol/L be repeated. 21 Because ethnic data is not always readily [...] 15-29 5 Kidney failure <15 (or dialysis) 22 <5.0 Negative 5.0 - 25.0 Indeterminate (Repeat testing recommended after 72 hours) >25.0 Positive Perimenopausal women can display HCG levels of up to 20 mIU/mL 23 >100 to <200 pg/mL: likely compensated congestive heart failure (CHF) 200 to 400 pg/mL: likely moderate CHF >400 pg/mL: likely moderate to severe CHF 24 Normal Range 180 to 914 Indeterminate Range 145 to 180 Deficient Range <145 25 ADDITIONAL INFORMATION This test was developed and its performance characteristics determined by [facility] in a manner consistent with CLIA requirements. This test has not been cleared or approved by the U.S. Food and Drug Administration. 26 ADDITIONAL INFORMATION This test was developed and its performance characteristics determined by [facility] in a manner consistent with CLIA requirements. This test has not been cleared or approved by the U.S. Food and Drug Administration. 27 ADDITIONAL INFORMATION This test was developed and its performance characteristics determined by [facility] in a manner consistent with CLIA requirements. This test has not been cleared or approved by the U.S. Food and Drug Administration. Test Performed by: [facility] - [address] [address] 28 No bands detected 29 No bands detected 30 Specific serologic response to B. burgdorferi infection [...] screening test (e.g., EIA). Test Performed by: [facility] - [address] [address] 31 Because ethnic data is not always readily [...] 15-29 5 Kidney failure <15 (or dialysis) 32 REFERENCE VALUE <4.0 (Negative) Test Performed by: [facility] - [address] [address] 33 Negative serology. Celiac disease unlikely. However, approximately 10% of patients with celiac disease are seronegative. Also, patients who are already adhering to a gluten-free diet may be seronegative. If celiac disease is highly clinically suspected, consider HLA-DQ typing. Test Performed by: [facility] - [address] [address] 34 RESULT: 05:01,05 REFERENCE VALUE Not Applicable 35 RESULT: 02:01,03:01 DQ Serologic Equivalent: 2,7 REFERENCE VALUE Not Applicable 36 These genes are permissive for celiac disease. The absence of HLA celiac permissive genes would make the presence of celiac disease unlikely. However, these genes can also be present in the normal population. ADDITIONAL INFORMATION Method: Molecular typing of HLA antigens performed using reverse SSOP and/or SSP methods, reported as serological equivalents and low to medium resolution molecular values. Performing Laboratory CLIA# [id number] Test Performed by: [facility] - [address] [address] 37 REFERENCE VALUE <=1.0 (Negative) 38 REFERENCE VALUE <20.0 (Negative) 39 Tests for antibodies to dsDNA and SCOOTER antigens are not performed automatically unless the MP result is > or= 3.0 U. Studies performed at [facility] indicate that positive MP results <3.0 U are rarely accompanied by positive second order tests. Test Performed by: [facility] - [address] [address] 40 Acute inflammation: >10.00 41 Please note: The following may produce a false positive D Dimer test: - Rheumatoid factor greater than 60 IU/ml - Plasma hemoglobin greater than 0.05 gm/dl - Bilirubin greater than 50 mg/dl - Lipids greater than 1000 mg/dl - FDP greater than 20 ug/ml 42 <5.0 Negative 5.0 - 25.0 Indeterminate (Repeat testing recommended after 72 hours) >25.0 Positive Perimenopausal women can display HCG levels of up to 20 mIU/mL 43 Because ethnic data is not always readily [...] 15-29 5 Kidney failure <15 (or dialysis) 44 [facility] Severe Sepsis and Septic Shock Management Bundle Measure requires all lactic acids initially measuring >2.0 mmol/L be repeated. Procedures Date CPT Code Description Status 05/23/2017 84253 Electrocardiogram Complete Completed 04/09/2017 80363 X-Ray Wrist Three Views Completed 04/02/2017 40995 Brief Emotional/Behav Assessment W/ Scoring Doc Per Completed Standard Inst 03/29/2017 65649 Electrocardiogram Complete Completed 02/21/2017 Diabetic Foot Exam Completed 07/08/2016 38589 X-Ray Chest Two Views Completed Encounters Type Date Location Provider CPT E/M Dx Office Visit 06/17/2017 4:50p [place] [address] L02.412 Office Visit 06/04/2017 2:00p [place] [address] M25.512 R07.89 E11.65 I10 Z79.4 Office Visit 05/23/2017 3:20p Main Office Linda Goodrich.A. 41803 M79.602 M54.2 R20.2 E11.65 Office Visit 05/21/2017 9:00a [place] [address] E11.65 E83.42 I10 Office Visit 05/14/2017 1:00p [place] [address] H65.02 M26.602 E11.65 I10 F41.9 Z79.4 Office Visit 05/01/2017 11:05a [place] [address] H66.92 B37.3 E11.65 I10 Office Visit 04/23/2017 2:00p [place] [address] E11.65 I10 R00.2 M50.10 Office Visit 04/09/2017 1:20p [place] [address] M25.532 E11.65 M50.10 S63.522A Y93.23 Office Visit 04/02/2017 10:40a [place] [address] E11.65 I10 R00.2 M54.5 Z13.89 F17.210 Office Visit 03/29/2017 10:30a Main Office Carissa Rivero P.A. 36820 E11.9 Z79.4 I10 R00.0 M54.5 M25.512 E07.89 Office Visit 03/18/2017 4:00p Main Office Carissa Rivero P.A. [address]136 E11.9 R00.2 I10 Z79.4 E11.65 Office Visit 01/14/2017 1:30p [place] [address] E11.9 M54.5 I10 Z23 Office Visit 12/02/2016 4:45p Main Office Toño Fairbanks D.O. 06529 E11.9 M54.5 M43.06 J34.3 Office Visit 10/02/2016 2:40p [place] [address] M54.2 M54.5 N63 E11.9 Office Visit 07/23/2016 9:45a [place] [address] E11.9 N64.4 N63 I10 Office Visit 07/08/2016 3:25p Main Office John Castillo M.D. 73523 R05 J20.9 Office Visit 05/07/2016 2:35p [place] [address] N64.4 N63 Office Visit 04/24/2016 1:40p [place] [address] N63 N64.4 E11.9 I10 M15.0 G43.009 Plan of Care Future Appointment(s):07/22/2017 11:45 am - Aliya Mar PA at [id number] - Aliya Mar PAL02.412 Cutaneous abscess of left axillaNew Medication:Cephalexin 500 mgComments:Rx for keflex. Recommended frequent warm compresses. Recheck if sx not improving.
--- NOTE | 2017-07-07 20:13 | UC ---
Ear Complaint HPI - HPI Summary HPI Summary: 31 y/o female with multiple medical comorbidities such as DM II, HTN, and back pain c/o L sided ear pain, sinus congestion/ pain and throat pain x 24 hours. H /o sinus surgeries, multiple surgeries. no fever, chills, pain increasing no cough, h/o TOB, stopped last week. + sinus drainage. had h/o L ear infection ~ 1 year ago, resolved. - History of Current Complaint Chief Complaint: UCEar Stated Complaint: EAR ACHE Time Seen by Provider: 07/07/17 19:52 Hx Obtained From: Patient Hx Last Menstrual Period: now ?: No Onset/Duration: Sudden Onset, Lasting Days Severity Initially: Mild Severity Currently: Moderate Pain Intensity: 2 Pain Scale Used: 0-10 Numeric - Allergies/Home Medications Allergies/Adverse Reactions: Allergies Allergy/AdvReac Type Severity Reaction Status Date / Time morphine Allergy Hives Verified 07/07/17 19:52 PMH/Surg Hx/FS Hx/Imm Hx Previously Healthy: No - DM, sinus surgeries Cardiovascular History: Hypertension - Surgical History Surgical History: Yes Surgery Procedure, Year, and [place] [facility] [place]amine[place] L5 r/t degenerative disc disease 2006,. SEPTOPLASTY 2013 [facility]. Mass removal right bicep 01/2016. Lap appendectomy - Family History Known Family History: Positive: Cardiac Disease, Hypertension, Diabetes, Other - CVA- paternal Family History: aunt w/ h/o CAD - no fam h/o arrhythmia - Social History Alcohol Use: Occasionally Alcohol Amount: Weekends only Substance Use Type: None Smoking Status (MU): Former Smoker Type: Cigarettes Amount Used/How Often: 3-4 CIG/DAY Length of Time of Smoking/Using Tobacco: 5 years Have You Smoked in the Last Year: No When Did the Patient Quit Smoking/Using Tobacco: 3 years Household Exposure Type: Cigarettes - Immunization History Most Recent Influenza Vaccination: 2016 Most Recent Tetanus Shot: 4 years ago?? Most Recent Pneumonia Vaccination: 2016 Review of Systems Constitutional: Negative Skin: Negative ENT: Sore Throat, Ear Ache, Nasal Discharge, Sinus Congestion Respiratory: Negative Cardiovascular: Negative Gastrointestinal: Negative Genitourinary: Negative Motor: Negative Neurovascular: Negative Musculoskeletal: Negative Psychological: Negative Is Patient Immunocompromised?: No All Other Systems Reviewed And Are Negative: Yes Physical Exam Triage Information Reviewed: Yes Appearance: Well-Appearing, Well-Nourished, Pain Distress - mild Vital Signs: Initial Vital Signs Temp 98.0 F 07/07/17 19:50 Pulse 70 07/07/17 19:50 Resp 12 07/07/17 19:50 BP 130/86 07/07/17 19:50 Pulse Ox 99 07/07/17 19:50 Vital Signs Reviewed: Yes Eyes: Positive: Conjunctiva Clear ENT: Positive: Pharyngeal erythema - L>R, erythema, no exudates, TM dull - L sided, TM red, Tonsillar swelling - mild L only, Sinus tenderness - L, Uvula midline. Negative: Nasal drainage, Tonsillar exudate Neck: Positive: Supple, Nontender, Enlarged Nodes @ - L submand Respiratory: Positive: Chest non-tender, Lungs clear, Normal breath sounds, No respiratory distress, No accessory muscle use Cardiovascular: Positive: RRR, No Murmur Ear Complaint Course/Dx - Course Course Of Treatment: sinus infection, follow up with PCP within 5-7 days for re- eval - Differential Dx/Diagnosis Differential Diagnosis/HQI/PQRI: Other Provider Diagnoses: sinusitis Discharge - Sign-Out/Discharge Documenting (check all that apply): Discharge - Discharge Plan Condition: Good Disposition: HOME Prescriptions: Amoxicillin/Clavulanate TAB* [Augmentin TAB 875*] 875 mg PO BID #20 tab Patient Education Materials: Sinusitis (ED), Pharyngitis (ED) Referrals: Zaid DIETZ,Aliya Franklin [Primary Care Provider] - Additional Instructions: - Increase fluid intake - Stop smoking - Follow up with PCP within 5-7 days and for blood pressure check - Billing Disposition and Condition Condition: GOOD Disposition: HOME
== END 2017-07-07 20:30 | disposition home or self-care (01) ==
LOC: UCEAST 19:45
DX: J32.9 Chronic sinusitis, unspecified (principal); E11.9 Type 2 diabetes mellitus without complications; I10 Essential (primary) hypertension; Z88.5 Allergy status to narcotic agent; Z87.891 Personal history of nicotine dependence
CPT/HCPCS: 99212; G0463

== ENCOUNTER 2017-07-13 21:06 | Emergency (ER) | payer OTHER ==
--- NOTE | 2017-07-13 22:48 | ED ---
Adult Trauma - HPI Summary HPI Summary: Patient complains of pain to left side mouth, jaw, ear, neck S/P tooth extraction from the left lower side 3 days ago. Patient is taking amoxicillin as directed, as well as hydrocodone for pain. States pain not controlle, and has been increasing since extraction. Patient has been taking hydrocodone 5 mg Q6. Denies fever, cough, sore throat, dysphagia, purulent drainage from mouth, CP, SOB, N/V/D, abdo pain, change in urinary BM. - History of Current Complaint Chief Complaint: EDDentalPain Stated Complaint: DENTAL PAIN Time Seen by Provider: 07/13/17 21:32 Hx Obtained From: Patient Hx Last Menstrual Period: now Pain Intensity: 7 - Additional Pertinent History Primary Care Physician: TOYA - Allergy/Home Medications Allergies/Adverse Reactions: Allergies Allergy/AdvReac Type Severity Reaction Status Date / Time morphine Allergy Hives Verified 07/13/17 21:24 Home Medications: Home Medications Amoxicillin 875 MG (*) 875 mg PO BID 07/13/17 [History Confirmed 07/13/17] busPIRone TAB* 10 mg PO BID 07/13/17 [History Confirmed 07/13/17] PMH/Surg Hx/FS Hx/Imm Hx Endocrine/Hematology History: Reports: Hx Diabetes - TYPE II - IDDM Denies: Hx Thyroid Disease Cardiovascular History: Reports: Hx Hypertension - takes lisinopril 5mg for renal protection Denies: Hx Congestive Heart Failure, Hx Pacemaker/ICD Respiratory History: Denies: Hx Asthma, Hx Chronic Obstructive Pulmonary Disease (COPD) GI History: Reports: Hx Gall Bladder Disease - s/p cholecystectomy, Other GI Disorders - GALL STONES Denies: Hx Ulcer History: Reports: Hx Kidney Stones Denies: Hx Renal Disease Musculoskeletal History: Reports: Hx Back Problems, Hx Orthopedic Injury Denies: Hx Arthritis, Hx Osteoporosis Sensory History: Denies: Hx Contacts or Glasses, Hx Hearing Aid Opthamlomology History: Denies: Hx Contacts or Glasses Neurological History: Reports: Hx Headaches, Hx Migraine Psychiatric History: Denies: Hx Eating Disorder, Hx Panic Disorder, Hx of Violent Episodes Against Others - Cancer History Cancer Type, Location and Year: Has High blood sugar that they are watching; not classified as diabetic at this time. - Surgical History Surgery Procedure, Year, and Place: GENE 2003 [facility] [place]. LUMBAR laminectomy L5 r/t degenerative disc disease 2006,. SEPTOPLASTY 2013 [place]. Mass removal right bicep 01/2016. Lap appendectomy Hx Anesthesia Reactions: No Infectious Disease History: No Infectious Disease History: Denies: Hx Clostridium Difficile, Hx Hepatitis, Hx Human Immunodeficiency Virus (HIV), Hx of Known/Suspected MRSA, Hx Shingles, Hx Tuberculosis, Hx Known/ Suspected VRE, Hx Known/Suspected VRSA, History Other Infectious Disease, Traveled Outside the [place] in Last 30 Days - Family History Known Family History: Positive: Cardiac Disease, Hypertension, Diabetes, Other - CVA- paternal Family History: aunt w/ h/o CAD - no fam h/o arrhythmia - Social History Alcohol Use: None Alcohol Amount: Weekends only Hx Substance Use: No Substance Use Type: Reports: None Hx Tobacco Use: Yes Smoking Status (MU): Former Smoker Type: Cigarettes Amount Used/How Often: 3-4 CIG/DAY Length of Time of Smoking/Using Tobacco: 5 years Have You Smoked in the Last Year: No Review of Systems Constitutional: Negative Eyes: Negative Positive: Dental Pain, Ear Ache Cardiovascular: Negative Respiratory: Negative Gastrointestinal: Negative Genitourinary: Negative Musculoskeletal: Negative Skin: Negative Neurological: Negative Psychological: Normal All Other Systems Reviewed And Are Negative: Yes Physical Exam - Summary Physical Exam Summary: No indication of oral abscess. No remarkable swelling of left side face, jaw, neck. Exam of pharynx and buccal mucosa unremarkable. Vital Signs On Initial Exam: Initial Vitals Temp Pulse Resp BP Pulse Ox 98.3 F 75 18 150/89 99 07/13/17 21:21 07/13/17 21:21 07/13/17 21:21 07/13/17 21:21 07/13/17 21:21 Vital Signs Reviewed: Yes Appearance: Positive: Well-Appearing Skin: Positive: Warm Head/Face: Positive: Normal Head/Face Inspection Eyes: Positive: Normal ENT: Positive: Normal ENT inspection Dental: Positive: Oropharynx - Unremarkable. Negative: Abscess @ Neck: Positive: Supple Respiratory/Lung Sounds: Positive: Clear to Auscultation Cardiovascular: Positive: Normal Abdomen Description: Positive: Nontender Musculoskeletal: Positive: Normal Neurological: Positive: Normal Psychiatric: Positive: Normal AVPU Assessment: Alert - [place] Coma Scale Best Eye Response: 4 - Spontaneous Best Motor Response: 6 - Obeys Commands Best Verbal Response: 5 - Oriented Coma Scale Total: 15 Diagnostics - Vital Signs Vital Signs Temp Pulse Resp BP Pulse Ox 07/13/17 21:21 98.3 F 75 18 150/89 99 - Laboratory Lab Statement: Any lab studies that have been ordered have been reviewed, and results considered in the medical decision making process. Adult Trauma Course/Dx - Course Course Of Treatment: Patient has been advised to increase her hydrocodone dose from 5 mg to 10 mg when necessary. Follow-up with dentist tomorrow. - Diagnoses Provider Diagnoses: Pain, dental Discharge - Sign-Out/Discharge Documenting (check all that apply): Discharge - Discharge Plan Condition: Stable Disposition: HOME Patient Education Materials: Toothache (ED) Referrals: Zaid DIETZ,lAiya Franklin [Primary Care Provider] - Additional Instructions: Increase dose from hydrocodone 5 mg every 6 hrs to hydrocodone 10 mg every 6hrs when necessary. Follow-up with your dentist tomorrow. Return to the ED for any new or worsening symptoms - Billing Disposition and Condition Condition: STABLE Disposition: HOME
[2017-07-13 23:10] VITALS: BP 132/81
== END 2017-07-13 23:10 | disposition home or self-care (01) ==
LOC: ED 21:06
DX: K08.89 Other specified disorders of teeth and supporting structures (principal); Z86.79 Personal history of other diseases of the circulatory system; E11.9 Type 2 diabetes mellitus without complications; Z87.891 Personal history of nicotine dependence
CPT/HCPCS: 99281

== ENCOUNTER 2017-11-10 22:46 | Emergency (ER) | payer OTHER ==
[2017-11-10] MEDS ORDERED: NS 0.9% 1000 ML* 1,000 ML IV ONE (23:57)
[2017-11-11 00:18] LABS: ABS Basophils 0.1 10^3/ul (0-0.2); ABS Eosinophils 0.2 10^3/ul (0-0.6); ABS Lymphocytes 3.2 10^3/ul (1.0-4.8); ABS Monocytes 0.6 10^3/ul (0-0.8); ABS Nucleated RBC 0 10^3/ul; Eosinophil % 2.2 % (0-6); Hematocrit 40 % (35-47); Hemoglobin 13.6 g/dl (12.0-16.0); Lymphocyte % 28.7 % (25-47); Mean Corpuscular HGB Conc 34 g/dl (31-36); Mean Corpuscular Hemoglobin 31 pg (27-31); Mean Corpuscular Volume 91 fL (80-97); Mean Platelet Volume 8.2 um3 (7.4-10.4); Nucleated Red Blood Cells % 0; Platelet Count 318 10^3/ul (150-450); Red Blood Count 4.38 10^6/ul (4.00-5.40); Red Cell Distribution Width 13 % (10.5-15); White Blood Count 11.1 10^3/ul (3.5-10.8)
[2017-11-11 00:32] LABS: EGFR Non-African American 103.8 (>60)
[2017-11-11] MEDS ORDERED: Ibuprofen TAB* 600 MG PO ONE (00:45)
[2017-11-11] MEDS ORDERED: Potassium Chlor TAB* 20 MEQ TAB.ER PO ONE (02:03)
--- NOTE | 2017-11-11 02:07 | ED ---
Adult Trauma - HPI Summary HPI Summary: Complains of fall with subsequent BARRAGAN and right cheek pain. Also states BGL just after fall was 47. Patient states she took 2 glucose tabs and blood sugar veda to 130. Patient was recently diagnosed with type DM 1 after years of being type II. Has insulin pump with no other medications. Denies any other pain or symptoms. Denies loss of consciousness, N/V, vision change, focal deficits, aMS, fever, cough, sore throat, CP, SOB, N/V/D, abdomen pain, change in urinary BM. Medical history is DM, HTN, chronic back pain. - History of Current Complaint Chief Complaint: EDDiabeticProb Stated Complaint: LOW BLOOD SUGAR Time Seen by Provider: 11/10/17 23:28 Hx Obtained From: Patient Hx Last Menstrual Period: now Mechanism of Injury: Fall Loss of Consciousness: no loss of consciousness Pain Intensity: 6 - Additional Pertinent History Primary Care Physician: TOYA - Allergy/Home Medications Allergies/Adverse Reactions: Allergies Allergy/AdvReac Type Severity Reaction Status Date / Time morphine Allergy Hives Verified 11/10/17 22:53 PMH/Surg Hx/FS Hx/Imm Hx Endocrine/Hematology History: Reports: Hx Diabetes - TYPE II - IDDM Denies: Hx Thyroid Disease Cardiovascular History: Reports: Hx Hypertension - takes lisinopril 5mg for renal protection Denies: Hx Congestive Heart Failure, Hx Pacemaker/ICD Respiratory History: Denies: Hx Asthma, Hx Chronic Obstructive Pulmonary Disease (COPD) GI History: Reports: Hx Gall Bladder Disease - s/p cholecystectomy, Other GI Disorders - GALL STONES Denies: Hx Ulcer History: Reports: Hx Kidney Stones Denies: Hx Renal Disease Musculoskeletal History: Reports: Hx Back Problems, Hx Orthopedic Injury Denies: Hx Arthritis, Hx Osteoporosis Sensory History: Denies: Hx Contacts or Glasses, Hx Hearing Aid Opthamlomology History: Denies: Hx Contacts or Glasses Neurological History: Reports: Hx Headaches, Hx Migraine Psychiatric History: Denies: Hx Eating Disorder, Hx Panic Disorder, Hx of Violent Episodes Against Others - Cancer History Cancer Type, Location and Year: Has High blood sugar that they are watching; not classified as diabetic at this time. - Surgical History Surgery Procedure, Year, and Place: GENE 2003 [facility]. LUMBAR laminectomy L5 r/t degenerative disc disease 2006,. SEPTOPLASTY 2012 [place]. Mass removal right bicep 01/2016. Lap appendectomy Hx Anesthesia Reactions: No Infectious Disease History: No Infectious Disease History: Denies: Hx Clostridium Difficile, Hx Hepatitis, Hx Human Immunodeficiency Virus (HIV), Hx of Known/Suspected MRSA, Hx Shingles, Hx Tuberculosis, Hx Known/ Suspected VRE, Hx Known/Suspected VRSA, History Other Infectious Disease, Traveled Outside the [place] in Last 30 Days - Family History Known Family History: Positive: Cardiac Disease, Hypertension, Diabetes, Other - CVA- paternal Family History: aunt w/ h/o CAD - no fam h/o arrhythmia - Social History Alcohol Use: Occasionally Alcohol Amount: Weekends only Hx Substance Use: No Substance Use Type: Reports: None Hx Tobacco Use: Yes Smoking Status (MU): Light Every Day Tobacco Smoker Type: Cigarettes Amount Used/How Often: 3-4 CIG/DAY Length of Time of Smoking/Using Tobacco: 5 years Have You Smoked in the Last Year: No Review of Systems Constitutional: Negative Eyes: Negative ENT: Negative Cardiovascular: Negative Respiratory: Negative Gastrointestinal: Negative Genitourinary: Negative Musculoskeletal: Negative Positive: Bruising Positive: Headache, Weakness Psychological: Normal All Other Systems Reviewed And Are Negative: Yes Physical Exam Triage Information Reviewed: Yes Vital Signs On Initial Exam: Initial Vitals Temp Pulse Resp BP Pulse Ox 98.6 F 80 16 149/96 99 11/10/17 22:50 11/10/17 22:50 11/10/17 22:50 11/10/17 22:50 11/10/17 22:50 Vital Signs Reviewed: Yes Appearance: Positive: Well-Appearing Skin: Positive: Warm Head/Face: Positive: Normal Head/Face Inspection Eyes: Positive: Normal Neck: Positive: Supple Respiratory/Lung Sounds: Positive: Clear to Auscultation Cardiovascular: Positive: Normal Abdomen Description: Positive: Nontender Musculoskeletal: Positive: Normal Neurological: Positive: Normal Psychiatric: Positive: Normal AVPU Assessment: Alert - [place] Coma Scale Best Eye Response: 4 - Spontaneous Best Motor Response: 6 - Obeys Commands Best Verbal Response: 5 - Oriented Coma Scale Total: 15 Diagnostics - Vital Signs Vital Signs Temp Pulse Resp BP Pulse Ox 11/10/17 22:50 98.6 F 80 16 149/96 99 - Laboratory Lab Results: Lab Results 11/11/17 11/11/17 Range/Units 00:00 00:00 WBC 11.1 H (3.5-10.8) 10^3/ul RBC 4.38 (4.00-5.40) 10^6/ul Hgb 13.6 (12.0-16.0) g/dl Hct 40 (35-47) % MCV 91 (80-97) fL MCH 31 (27-31) pg MCHC 34 (31-36) g/dl RDW 13 (10.5-15) % Plt Count 318 (150-450) 10^3/ul MPV 8.2 (7.4-10.4) um3 Neut % (Auto) 63.3 (38-83) % Lymph % (Auto) 28.7 (25-47) % Morgan % (Auto) 5.2 (0-7) % Eos % (Auto) 2.2 (0-6) % Baso % (Auto) 0.6 (0-2) % Absolute Neuts (auto) 7.0 (1.5-7.7) 10^3/ul Absolute Lymphs (auto) 3.2 (1.0-4.8) 10^3/ul Absolute Monos (auto) 0.6 (0-0.8) 10^3/ul Absolute Eos (auto) 0.2 (0-0.6) 10^3/ul Absolute Basos (auto) 0.1 (0-0.2) 10^3/ul Absolute Nucleated RBC 0 10^3/ul Nucleated RBC % 0 Sodium 137 (135-145) mmol/L Potassium 3.2 L (3.5-5.0) mmol/L Chloride 105 (101-111) mmol/L Carbon Dioxide 26 (22-32) mmol/L Anion Gap 6 (2-11) mmol/L BUN 7 (6-24) mg/dL Creatinine 0.66 (0.51-0.95) mg/dL Est GFR ( Amer) 125.6 (>60) Est GFR (Non-Af Amer) 103.8 (>60) BUN/Creatinine Ratio 10.6 (8-20) Glucose 146 H (70-100) mg/dL Calcium 9.1 (8.6-10.3) mg/dL Total Bilirubin 0.30 (0.2-1.0) mg/dL AST 21 (13-39) U/L ALT 28 (7-52) U/L Alkaline Phosphatase 107 H (34-104) U/L C-Reactive Protein 10.94 H (<8.01) mg/L Total Protein 6.9 (6.4-8.9) g/dL Albumin 3.7 (3.2-5.2) g/dL Globulin 3.2 (2-4) g/dL Albumin/Globulin Ratio 1.2 (1-3) Result Diagrams: 11/11/17 00:00 11/11/17 00:00 Lab Statement: Any lab studies that have been ordered have been reviewed, and results considered in the medical decision making process. Adult Trauma Course/Dx - Course Course Of Treatment: Complains of fall with subsequent BARRAGAN and right cheek pain. Also states BGL just after fall was 47. Patient states she took 2 glucose tabs and blood sugar veda to 130. Patient was recently diagnosed with type DM 1 after years of being type II. Has insulin pump with no other medications. Denies any other pain or symptoms. Denies loss of consciousness, N/V, vision change, focal deficits, aMS, fever, cough, sore throat, CP, SOB, N/V/D, abdomen pain, change in urinary BM. Medical history is DM, HTN, chronic back pain. Physical exam:. Full range of motion of jaw. EOMs intact. Contusion and swelling to right cheek. No obvious deformity. CT not indicated as nondisplaced fracture resulting no treatment. No obvious displacement of right cheek. Discussed patient with Dr. Reyna. Recommend discharge home .Vital signs stable. BGL stable. Patient states she is back to baseline other than right-sided pain which improved with ibuprofen and ice. Patient will keep insulin pump off, she has appointment at 10:30 AM today to evaluate pump. Patient states she will be carefully until then. - Diagnoses Provider Diagnoses: Fall, Hypoglycemia Discharge - Sign-Out/Discharge Documenting (check all that apply): Patient Departure - Discharge Plan Condition: Stable Disposition: HOME Patient Education Materials: Hypoglycemia in a Person with Diabetes (ED), Fall Prevention (ED), Facial Contusion (ED), What to Do if Your Blood Sugar is Low ( ED) Referrals: Zaid DIETZ,Aliya Franklin [Primary Care Provider] - Additional Instructions: Follow-up with primary care. Return to the ED for any new or worsening symptoms - Billing Disposition and Condition Condition: STABLE Disposition: Home
[2017-11-11 02:42] VITALS: BP 127/99
== END 2017-11-11 02:40 | disposition home or self-care (01) ==
LOC: ED 22:46
DX: E16.2 Hypoglycemia, unspecified (principal); Z91.81 History of falling; R51 Headache; E11.9 Type 2 diabetes mellitus without complications; Z79.4 Long term (current) use of insulin; R53.1 Weakness
CPT/HCPCS: 36415; 80053; 85025; 86140; 96360; 99282; A9270-GY

== ENCOUNTER 2017-11-16 17:49 | Emergency (ER) | payer OTHER ==
[2017-11-16 17:54] VITALS: BP 141/95
--- NOTE | 2017-11-16 18:13 | UC ---
Knee Pain HPI - HPI Summary HPI Summary: The patient has chief complaint of pain and swelling and/or left knee. She has had no known injuries. - History of Current Complaint Chief Complaint: UCLowerExtremity Stated Complaint: L KNEE INJURY Time Seen by Provider: 11/16/17 17:59 Hx Obtained From: Patient Hx Last Menstrual Period: 3 wks ago ?: No Onset/Duration: Sudden Onset, Lasting Days - 3, Still Present Pain Intensity: 4 Pain Scale Used: 0-10 Numeric Character: Aching, Stiffness Aggravating Factor(s): Movement, Weight Bearing Alleviating Factor(s): Rest Associated Signs And Symptoms: Positive: Negative Able to Bear Weight: Yes - Allergies/Home Medications Allergies/Adverse Reactions: Allergies Allergy/AdvReac Type Severity Reaction Status Date / Time morphine Allergy Hives Verified 11/16/17 17:55 PMH/Surg Hx/FS Hx/Imm Hx Previously Healthy: No Endocrine History: Diabetes Cardiovascular History: Hypertension Psychological History: Anxiety - Surgical History Surgical History: Yes Surgery Procedure, Year, and Place: GENE 2003 [facility] [place], [place]. LUMBAR laminectomy L5 r/t degenerative disc disease 2006,. SEPTOPLASTY 2012 [place]. Mass removal right bicep 01/2016. Lap appendectomy - Family History Known Family History: Positive: Cardiac Disease, Hypertension, Diabetes, Other - CVA- paternal Family History: aunt w/ h/o CAD - no fam h/o arrhythmia - Social History Occupation: Unemployed Lives: With Family Alcohol Use: Occasionally Alcohol Amount: Weekends only Substance Use Type: None Smoking Status (MU): Light Every Day Tobacco Smoker Type: Cigarettes Amount Used/How Often: 3-4 CIG/DAY Length of Time of Smoking/Using Tobacco: 5 years Have You Smoked in the Last Year: No When Did the Patient Quit Smoking/Using Tobacco: 3 years Household Exposure Type: Cigarettes - Immunization History Most Recent Influenza Vaccination: 2016 Most Recent Tetanus Shot: 4 years ago?? Most Recent Pneumonia Vaccination: 2016 Review of Systems Constitutional: Negative Skin: Negative Eyes: Negative ENT: Negative Respiratory: Negative Cardiovascular: Negative Gastrointestinal: Negative Genitourinary: Negative Motor: Negative Neurovascular: Negative Musculoskeletal: Arthralgia - left knee Neurological: Negative Psychological: Negative Is Patient Immunocompromised?: No All Other Systems Reviewed And Are Negative: Yes Physical Exam Triage Information Reviewed: Yes Appearance: Well-Appearing, No Pain Distress, Well-Nourished Vital Signs: Initial Vital Signs Temp 99.1 F 11/16/17 17:52 Pulse 105 11/16/17 17:52 Resp 18 11/16/17 17:52 BP 141/95 11/16/17 17:52 Pulse Ox 99 11/16/17 17:52 Vital Signs Reviewed: Yes Eye Exam: Normal Eyes: Positive: Conjunctiva Clear ENT Exam: Normal ENT: Positive: Normal ENT inspection, Hearing grossly normal. Negative: Trismus , Muffled voice, Hoarse voice Dental Exam: Normal Neck exam: Normal Neck: Positive: Supple, Nontender Respiratory Exam: Normal Respiratory: Positive: Chest non-tender, No respiratory distress, No accessory muscle use Cardiovascular Exam: Normal Cardiovascular: Positive: RRR, No Murmur, Pulses Normal, Brisk Capillary Refill Musculoskeletal Exam: Other Musculoskeletal: Positive: Strength Intact, ROM Intact, Edema @ - left knee Neurological Exam: Normal Neurological: Positive: Alert, Muscle Tone Normal Psychological Exam: Normal Skin Exam: Normal Knee Pain Course/Dx - Course Course Of Treatment: patient is agreeable to conservitive treatment and avoid x- ray as she has had no injurt---will ivelisse wrap and immoblize, ice and NSAID follow with pcp if not resolved or worsenes - Differential Dx/Diagnosis Provider Diagnoses: left knee pain Discharge - Sign-Out/Discharge Documenting (check all that apply): Patient Departure All imaging exams completed and their final reports reviewed: No Studies - Discharge Plan Condition: Stable Disposition: HOME Patient Education Materials: Ibuprofen (By mouth), Swollen Knee Joint (ED), Hypertension (ED), Arthralgia (ED), R.I.C.E. Treatment (ED) Referrals: Aliya Segundo [Primary Care Provider] - 2 Days - Billing Disposition and Condition Condition: STABLE Disposition: Home
== END 2017-11-16 18:17 | disposition home or self-care (01) ==
LOC: UCEAST 17:49
DX: M25.562 Pain in left knee (principal); M25.462 Effusion, left knee; F17.210 Nicotine dependence, cigarettes, uncomplicated; E11.9 Type 2 diabetes mellitus without complications; I10 Essential (primary) hypertension; Z88.5 Allergy status to narcotic agent
CPT/HCPCS: 99212; G0463

== ENCOUNTER 2018-01-31 13:39 | Emergency (ER) | payer OTHER ==
--- OUTSIDE RECORDS SUMMARY | 2018-01-31 13:56 | XMS REPORT | Continuity of Care Document ---
:1985 External Reference #:[id number] Author Name Alan Looney M.D. Address [address] [facility] [address] [place] [address] Care Team Providers Name Role Phone HCP given Primary Care Physician Unavailable Payers Type Date Identification Numbers Payment Provider Subscriber Effective: Policy Number: [id number] [facility] Alo Brunson [address] [place] PayID: [id number] [address] [place] [address] Advance Directives Description No Information Available Problems Date Description Provider Status Onset: 04/24/2016 Type 2 diabetes mellitus Aliya Mar PA Active Onset: 04/24/2016 Essential hypertension Aliya Mar PA Active Onset: 04/24/2016 Degenerative joint disease involving Aliya Mar PA Active multiple joints Onset: 04/24/2016 Migraine without aura, not refractory Aliya Mar PA Active Onset: 04/02/2017 Type II diabetes mellitus uncontrolled Aliya Mar PA Active Onset: 04/09/2017 Cervical disc disorder Aliya Mar PA Active Onset: 05/14/2017 Anxiety state Aliya Mar PA Active Family History Date Family Member(s) Problem(s) Comments Paternal Grandfather Cancer Brain Maternal Grandfather Lung Cancer Maternal Grandmother Colon Cancer Paternal Uncles Diabetes, Nos Maternal Aunts Lung Cancer Maternal Aunts Diabetes, NOS Social History Type Date Description Comments Sex Unknown Marital Status Single Marital Status Significant Other Occupation Works at [employer]. Work Status Currently Working Tobacco Use Start: Unknown Former Cigarette Smoker Quit 03/2017 End: Unknown ETOH Use Occassional Alcohol Recreational Drug Use Denies Drug Use Tobacco Use Start: Unknown Patient is a former quit in 2016, End: Unknown smoker restarted but quit again 03/2017 Smoking Status Reviewed: 07/22/17 Patient is a former quit in 2016, smoker restarted but quit again 03/2017 Exercise Type/Frequency Exercises sporadically Sun Exposure Does not use sunscreen Seat Belt/Car Seat Seat Belt Use - Yes Smoke Alarms Yes smoke alarm Currently Active Patient is currently sexually active Contraceptive Methods None Allergies, Adverse Reactions, Alerts Date Description Reaction Status Severity Comments 04/24/2016 Morphine Urticaria Active Moderate Medications Medication Date Status Form Strength Qnty SIG Indications Ordering Provider Amoxicillin/C Active Tablets 875-125mg 20tabs 1 twice a J01.90 Silcoff, lavulanate 018 day x 10 Alan, Potassium days M.DIsabella Admelog Active Solution 100Unit/ML 10ml for use E11.65 Sopchak, 018 with Toño, insulin D.O. pump, max 100 units/day Freestyle Active Strips 200unit test 4 E11.65 Silcoff, Test 018 s times Alan, daily M.DIsabella Ibuprofen Active Tablets 600mg 90tabs 1 by M79.602 Silrivka, 018 mouth Alan, every 6 M.D. hours as needed for pain N61.0 S83.402D Magnesium Oxide 05/21/2017 Active Tablets 500mg 30tabs take 1 E83.42 Silcoff, capsule by Bienvenido Phillips mouth daily Buspirone HCL 05/14/2017 Active Tablets 10mg 60tabs 1 tab by F41.9 Silcoff, mouth twice Bienvenido Phillips a day for anxiety Fluconazole 05/01/2017 Active Tablets 150mg 2tabs 1 tab by B37.3 Guilleff, mouth once Bienvenido Phillips for yeast infection, may repeat after 1 week if needed Metoprolol 04/19/2017 Active Tablets 25mg 90tabs take one R00.2 Silcoff , Tartrate half [...] control Basaglar 02/08/2017 Active Solution 100Unit 15ml 25 units E11.65 Silcoff, Kwikpen Pen-Inject /ML subq twice Alan, daily M.D. E11.9 Advocate 01/26/2017 Active Misc 31G X 150units use with E11.9 Silcoff, Insulin Pen 8 mm insulin Alan, [place] pens, up to M.D. [id number] 5/day Hydrocodone-A 01/14/2017 Active Tablets 5-325 90tabs 1 tablet by M54.5 Aure, cetaminophen mg mouth up to Alan, every 8 M.D. hours as needed for pain Freestyle 07/23/2016 Active E11.9 Hektor, [place] HERMELINDA Pisano Glucometer Freestyle 07/23/2016 Active Misc 100units test 4 Silcoff, Lancets times daily Bienvenido Phillips Contour Next 09/18/2017 - Hx Strips 200units test 4 E11.65 Sopchak, Blood Glucose 10/08/2017 times a Toño, Test day, use D.O. along with insulin pump Humalog 09/09/2017 - Hx Solution 100Un 3vials for use E11.65 Silcoff, 11/20/2017 it/ML with Alan insulin M.D. pump; up to 100 units/day Cephalexin 09/03/2017 - Hx Tablets 500mg 30tabs 1 tab by N61.0 Aure, 09/23/2017 mouth Alan, 3x/day x10 M.D. days; for skin infection Humalog 08/07/2017 - Hx Solution 100Un 15ml 5 units sc E11.65 Silcoff, Kwikpen 09/09/2017 Pen-Inject it/ML 3 times a Alan, day at M.D. mealtimes Amoxicillin/C 07/08/2017 - Hx Tablets 875-1 20tabs take 1 Unknown lavulanate 07/18/2017 25mg tablet by Potassium mouth twice a day x 10 days Cephalexin 06/17/2017 - Hx Tablets 500mg 21tabs 1 tab by L02.412 Aure 06/24/2017 mouth Alan, 3x/day x7 M.D. days; for skin infection Januvia 05/21/2017 - Hx Tablets 100mg 30tabs 1 tab by E11.9 Kiaracoandi, 10/20/2017 mouth every Alan, day M.D. E11.65 Claritin-D 12 05/14/2017 - Hx Tablets ER 5-120mg 60tabs 1 tab by H65.02 Aure, Hour 05/20/2017 12HR mouth twice Alan, daily as M.D. needed for congestion Amoxicillin 05/01/2017 - Hx Tablets 875mg 20tabs 1 tab by H66.92 Silcoff, 05/22/2017 mouth twice Alan, a day x10 M.D. days Wrist 04/09/2017 - Hx Misc 1units use as M25.532 Aure Brace/Suede 04/22/2017 directed for Alan, Finish/Left/Me left wrist M.D. dium sprain Amlodipine 03/29/2017 - Hx Tablets 5mg 30tabs take 1 I10 Silcoandi, Besylate 04/22/2017 tablet po Alan, daily for M.D. high blood pressure Januvia 02/01/2017 - Hx Tablets 50mg 30tabs 1 tab by E11.9 Kiaracoandi, 05/21/2017 mouth every Alan, day M.D. E11.65 Trulicity 01/14/2017 - Hx Solution 0.75mg/0.5ML 2ml 0.5ml sc E11.9 Silcoandi, 01/14/2017 Pen-Inject weekly for Alan, diabetes M.D. [...] Hx Kit w/Device 1units test twice E11.[address], System 07/23/2016 a day HERMELINDA Pisano Freestyle Test 07/23/2016 - Hx Strips 100units test 4 E11.65 Aure, 09/18/2017 times rony Phillips M.D. Ondansetron 07/21/2016 - Hx Tablets 4mg Unknown [...] tabs N64.4 Hektor, 10/01/2016 by mouth HERMELINDA Piasno up to 4 times daily as needed for severe pain Invokana - Hx Tablets 100mg 30tabs once daily E11.9 Zaid, 11/22/2016 for HERMELINDA Pisano diabetes Lisinopril - Hx Tablets 5mg 30tabs 1 by mouth I10 Aure, 03/18/2017 every day Bienvenido Phillips Sulfamethoxazole - Hx Tablets 800-160mg take 1 Unknown /Trimethoprim DS 07/09/2017 tablet by mouth twice a day Immunizations CPT Code Status Date Vaccine Lot # [id number] Given 01/12/2018 Influenza Virus Vaccine, Quadrivalent, Split, [id number] Preservative Free [id number] Given 01/14/2017 Influenza Virus Vaccine, Quadrivalent, Split, [id number] Preservative Free Vital Signs Date Vital Result Comment 01/12/2018 1:50pm BP Systolic 108 mmHg BP Diastolic 70 mmHg Body Temperature 98.3 F Weight 208.00 lb 11/25/2017 11:44am BP Systolic 112 mmHg BP Diastolic 70 mmHg Last Menstrual Period [id number] 11/18/2017 10:28am BP Systolic 118 mmHg BP Diastolic 70 mmHg Weight 205.00 lb 10/23/2017 1:09pm BP Systolic 120 mmHg BP Diastolic 78 mmHg 10/21/2017 10:58am BP Systolic 118 mmHg BP Diastolic 75 mmHg Heart Rate 81 /min Weight 209.00 lb 10/07/2017 9:12am BP Systolic 120 mmHg Left arm BP Diastolic 80 mmHg Left arm Weight 209.00 lb 09/03/2017 2:15pm BP Systolic 104 mmHg BP Diastolic 60 mmHg Body Temperature 98.1 F 07/22/2017 11:50am BP Systolic 120 mmHg BP Diastolic 78 mmHg Weight 202.00 lb with shoes 07/10/2017 12:22pm BP Systolic 118 mmHg BP Diastolic 78 mmHg Body Temperature 97.6 F Weight 205.00 lb w/shoes 06/17/2017 4:55pm BP Systolic 116 mmHg BP Diastolic 72 mmHg Weight 208.00 lb 06/04/2017 2:07pm BP Systolic 120 mmHg BP Diastolic 80 mmHg Weight 207.00 lb w/shoes 05/23/2017 3:25pm BP Systolic 128 mmHg BP Diastolic 78 mmHg 05/21/2017 9:27am BP Systolic 102 mmHg BP Diastolic 60 mmHg Height 67 inches 5'7" with sneakers Weight 205.00 lb with sneakers BMI (Body Mass Index) 32.1 kg/m2 05/14/2017 12:55pm BP Systolic 108 mmHg BP Diastolic 60 mmHg Weight 204.00 lb 05/01/2017 11:13am BP Systolic 110 mmHg BP Diastolic 70 mmHg Body Temperature 97.6 F 04/23/2017 2:14pm BP Systolic 112 mmHg BP Diastolic 70 mmHg Weight 210.00 lb 04/09/2017 1:23pm BP Systolic 130 mmHg pt has not taken BP meds BP Diastolic 82 mmHg pt has not taken BP meds Weight 206.00 lb w/shoes and coat 04/02/2017 10:44am BP Systolic 114 mmHg BP Diastolic 70 mmHg 03/29/2017 10:28am BP Systolic 117 mmHg BP Diastolic 76 mmHg BP Systolic Recheck 110 mmHg BP Diastolic Recheck 78 mmHg Heart Rate 75 /min Weight 205.00 lb 03/18/2017 4:19pm BP Systolic 136 mmHg BP Diastolic 92 mmHg Heart Rate 90 /min Weight 213.00 lb 01/14/2017 1:34pm BP Systolic 126 mmHg BP Diastolic 80 mmHg Height 67 inches 5'7" Weight 212.00 lb BMI (Body Mass Index) 33.2 kg/m2 12/02/2016 5:19pm BP Systolic 132 mmHg BP Diastolic 85 mmHg Weight 210.00 lb with sneakers 10/02/2016 2:44pm BP Systolic 125 mmHg BP Diastolic 80 mmHg Weight 206.00 lb with shoes 07/23/2016 9:58am BP Systolic 122 mmHg BP Diastolic 80 mmHg Weight 210.00 lb with sneakers 07/08/2016 3:29pm BP Systolic 130 mmHg BP Diastolic 82 mmHg Body Temperature 97.0 F Weight 207.00 lb 05/07/2016 3:23pm BP Systolic 114 mmHg BP Diastolic 84 mmHg 04/24/2016 2:00pm BP Systolic 118 mmHg BP Diastolic 64 mmHg Height 66.5 inches 5'6.50" Weight 190.00 lb BMI (Body Mass Index) 30.2 kg/m2 Results Test Date Facility Test Result H/L Range Note Laboratory test 11/25/2017 [facility] HCG < 0.60 mIU/mL 1 finding [phone] Laboratory test 11/25/2017 In House Test negative finding Urine Laboratory test 11/18/2017 [facility] Cytology SEE RESULT 2 finding [phone] Non-Real Estate Legal Assistant BELOW Laboratory test 11/11/2017 [facility] Point of Care 124 mg/dL High 70 -100 3 finding [phone] Glucose Comp Metabolic 11/11/2017 [facility] Sodium 137 mmol/L 135-145 Panel [phone] Potassium 3.2 mmol/L Low 3.5-5.0 Chloride 105 mmol/L 101-111 Co2 Carbon Dioxide 26 mmol/L 22-32 Anion Gap 6 mmol/L 2-11 Glucose 146 mg/dL High 70-100 Blood Urea Nitrogen 7 mg/dL 6-24 Creatinine 0.66 mg/dL 0.51-0.95 BUN/Creatinine Ratio 10.6 8-20 Calcium 9.1 mg/dL 8.6-10.3 Total Protein 6.9 g/dL 6.4-8.9 Albumin 3.7 g/dL 3.2-5.2 Globulin 3.2 g/dL 2-4 Albumin/Globulin Ratio 1.2 1-3 Total Bilirubin 0.30 mg/dL 0.2-1.0 Alkaline Phosphatase 107 U/L High 34-104 Alt 28 U/L 7-52 Ast 21 U/L 13-39 Egfr Non- 103.8 >60 Egfr 125.6 >60 4 Laboratory test 11/11/2017 [facility] C Reactive 10.94 mg/L High < 8.01 finding [phone] Protein CBC Auto Diff 11/11/2017 [facility] White Blood 11.1 High 3.5-10.8 [phone] Count 10^3/uL Red Blood Count 4.38 10^6/uL 4.00-5.40 Hemoglobin 13.6 g/dL 12.0-16.0 Hematocrit 40 % 35-47 Mean Corpuscular Volume 91 fL 80-97 Mean Corpuscular Hemoglobin 31 pg 27-31 Mean Corpuscular HGB Conc 34 g/dL 31-36 Red Cell Distribution Width 13 % 10.5-15 Platelet Count 318 10^3/uL 150-450 Mean Platelet Volume 8.2 um3 7.4-10.4 Abs Neutrophils 7.0 10^3/uL 1.5-7.7 Abs Lymphocytes 3.2 10^3/uL 1.0-4.8 Abs Monocytes 0.6 10^3/uL 0-0.8 Abs Eosinophils 0.2 10^3/uL 0-0.6 Abs Basophils 0.1 10^3/uL 0-0.2 Abs Nucleated RBC 0 10^3/uL Granulocyte % 63.3 % 38-83 Lymphocyte % 28.7 % 25-47 Monocyte % 5.2 % 0-7 Eosinophil % 2.2 % 0-6 Basophil % 0.6 % 0-2 Nucleated Red Blood Cells % 0 Laboratory test 11/10/2017 [facility] Point of Care 201 mg/dL High 70 -100 5 finding [phone] Glucose Laboratory test 10/21/2017 In House Hemoglobin A1c 9.4 finding Laboratory test 07/22/2017 In House Hemoglobin A1c 9.9 finding Laboratory test 05/21/2017 In House Hemoglobin A1c 9.5 finding Pthi 05/21/2017 [facility] PTH Intact 3.2 pmol/L 1.3-9.3 [phone] Calcium (PTH Intact) 9.2 mg/dL 8.6-10.3 Lipid Profile (Trig/Chol/HDL) 05/21/2017 [facility] Triglycerides 57 mg /dL 6 [phone] Cholesterol 79 mg/dL 7 HDL Cholesterol 41.0 mg/dL 8 LDL Cholesterol 27 mg/dL 9 Catecholamine 24HR Urine 05/21/2017 [facility] Urine Collection 24 h Fract [phone] Duration Urine Total Volume 1400 mL Urine Norepinephrine 66 mcg/24h 15-80 Urine Epinephrine 3.2 mcg/24h <21 Urine Dopamine 277 mcg/24h 65-400 10 Urine Metanephrines 05/21/2017 [facility] Urine Metanephrine 122 mcg/ 24h 11 24HR [phone] Urine Normetanephrine 328 mcg/24h 12 Urine Total Metanephrines 450 mcg/24h 13 Urine Collection Duration 24 h Urine Volume 1400 mL 14 Laboratory test 05/20/2017 [facility] Hemoglobin A1c 10.0 % High 4.0- 5.6 15 finding [phone] (Glyco HGB) Comp Metabolic 05/20/2017 [facility] Sodium 134 mmol/L 133-145 Panel [phone] Potassium 4.1 mmol/L 3.5-5.0 Chloride 102 mmol/L [...] Egfr Non- 106.3 >60 Egfr 136.7 >60 16 Laboratory test 05/20/2017 [facility] Magnesium 1.7 mg/dL Low 1.9- 2.7 finding [phone] CBC Auto Diff 04/18/2017 [facility] White Blood 8.7 10^3/uL 3.5- 10.8 [phone] Count Red Blood Count 4.56 10^6/uL 4.0-5.4 Hemoglobin [...] Cells % 0 Comp Metabolic Panel 04/18/2017 [facility] Sodium 133 mmol/L 133- 145 [phone] Potassium 3.8 mmol/L 3.5-5.0 Chloride 103 mmol/L [...] Egfr Non- 91.5 >60 Egfr 117.7 >60 17 Laboratory test 04/18/2017 [facility] Troponin-I (TnI) 0.00 ng/mL < 0.04 finding [phone] Xray 04/09/2017 [facility] X-Ray, Wrist, <pending> Complete, Min. Of 3 Views L Urinalysis 03/30/2017 [facility] Urine Color Straw Profile [phone] Urine Appearance Clear Urine Specific Chappells 1.007 Low 1.010-1.030 Urine pH 6.0 5-9 Urine Urobilinogen Negative Negative Urine Ketones Negative Negative Urine Protein Negative Negative Urine Leukocytes Negative Negative Urine Blood Negative Negative Urine Nitrite Negative Negative Urine Bilirubin Negative Negative Urine Glucose 3+(>=500 mg/dL) Negative Laboratory test finding 03/30/2017 [facility] Magnesium 1.7 mg/dL Low 1.9-2.7 [phone] Lipase 24 U/L 11.0-82.0 C Reactive Protein 13.03 mg/L High < 5.00 18 Troponin-I (TnI) 0.00 ng/mL <0.04 HCG < 0.60 mIU/mL 19 TSH (Thyroid Stim Horm) 1.09 mcIU/mL 0.34-5.60 Laboratory test 03/30/2017 [facility] Troponin-I (TnI) 0.01 ng/mL < 0.04 finding [phone] Comp Metabolic 03/30/2017 [facility] Sodium 132 mmol/L Low 133-145 Panel [phone] Potassium 3.7 mmol/L 3.5-5.0 Chloride 102 mmol/L [...] Egfr Non- 99.2 >60 Egfr 127.6 >60 20 CBC Auto Diff 03/30/2017 [facility] White Blood Count 9.5 10^3/uL 3.5-10.8 [phone] Red Blood Count 4.81 10^6/uL 4.0-5.4 Hemoglobin [...] Blood Cells % 0.1 Laboratory test finding 03/30/2017 [facility] Inr/Protime 0.94 0.77- 1.02 [phone] Partial Thrombo Time PTT 27.1 seconds 26.0-36.3 D Dimer Quantitative < 200 ng/mL Less Than 230 21 Lactic Acid 1.9 mmol/L 0.5-2.0 22 Laboratory test 03/18/2017 In House Hemoglobin A1c 9.8 finding Laboratory test 03/16/2017 [facility] Troponin-I (TnI) 0.00 ng/mL < 0.04 finding [phone] Urinalysis Profile 03/15/2017 [facility] Urine Color Colorless [phone] Urine Appearance Clear Urine Specific Chappells 1.000 Low 1.010-1.030 Urine pH 6.0 5-9 [...] Squamous Epithelial Cell Present Absent Laboratory test 03/15/2017 [facility] Troponin-I (TnI) 0.01 ng/mL < 0.04 finding [phone] HCG 0.68 mIU/mL 23 B-Type Natriuretic Peptide BNP 21 pg/mL 24 Magnesium 1.7 mg/dL Low 1.9-2.7 Comp Metabolic Panel 03/15/2017 [facility] Sodium 132 mmol/L Low 133- 145 [phone] Potassium 3.4 mmol/L Low 3.5-5.0 Chloride 101 [...] Egfr Non- 116.6 >60 Egfr 150.0 >60 25 CBC Auto Diff 03/15/2017 [facility] White Blood 10.9 10^3/uL High 3.5 -10.8 [phone] Count Red Blood Count 4.55 10^6/uL 4.0-5.4 Hemoglobin [...] Cells % 0.1 Laboratory test finding 03/15/2017 [facility] Inr/Protime 0.98 0.77- 1.02 26 [phone] Partial Thrombo Time PTT 28.2 seconds 26.0-36.3 D Dimer Quantitative < 200 ng/mL Less Than 230 27 Lactic Acid 1.3 mmol/L 0.5-2.0 28 Laboratory test 01/14/2017 In House Hemoglobin A1c 9.2 finding CBC Auto Diff 12/06/2016 [facility] White Blood Count 7.8 10^3/uL 3.5-10.8 [phone] Red Blood Count 4.31 10^6/uL 4.0-5.4 Hemoglobin [...] Cells % 0 Comp Metabolic Panel 12/06/2016 [facility] Sodium 133 mmol/L 133- 145 [phone] Potassium 4.0 mmol/L 3.5-5.0 Chloride 103 mmol/L [...] Egfr Non- 100.9 >60 Egfr 129.8 >60 29 Celiac Panel 12/06/2016 [facility] Tissue Transglutaminase IgA <1.2 U/ mL 30 [phone] Ab Immunoglobulin A 255 mg/dL 61 - 356 Celiac Interpretation See Comment 31 Celiac Hla 12/06/2016 [facility] Hla-Dqa1 SEE BELOW 32 [phone] Hla-DQB1 SEE BELOW 33 Celiac Gene Pairs Present? Yes Celiac Gene Interpretation See Comment 34 Connective Tissue Panel 12/06/2016 [facility] Anti-Nuclear Antibody 0.4 U 35 [phone] Cyclic Citrullinated Peptide <15.6 U 36 Interpretation See Comment 37 Laboratory test 12/06/2016 [facility] Erythrocyte Sed 19 mm/Hr High 0 -14 finding [phone] Rate C Reactive Protein 12.53 mg/L High < 5.00 38 Lyme Western Blot 12/06/2016 [facility] Lyme Disease IgG Negative Negative [phone] Ab WB Lyme Disease IgG Bands Present No bands detecte <SEE NOTE> kDa 39 Lyme Disease IgM Ab WB Negative Negative Lyme Disease IgM Bands Present No bands detecte <SEE NOTE> kDa 40 Lyme Disease Interpretation See Comment 41 Laboratory test finding 12/06/2016 [facility] Magnesium 1.8 mg/dL Low 1.9-2.7 [phone] TSH (Thyroid Stim Horm) 1.30 mcIU/mL 0.34-5.60 Tick-Borne Panel PCR 12/06/2016 [facility] Babesia microti Negative Negative Blood [phone] PCR Babesia ducani Negative Negative Babesia divergens/Mo-1 Negative Negative 42 Anaplasma phagocytophilum Negative Negative Ehrlichia chaffeensis Negative Negative Ehrlichia ewingii/canis Negative Negative Ehrlichia muris-like Negative Negative 43 B. miyamotoi PCR, B Negative Negative 44 Laboratory test finding 12/06/2016 [facility] Vitamin B12 289 pg/mL [phone] 45 [phone] Vitamin D Total 25(Oh) 11.8 ng/mL Low 20-50 Laboratory test 09/19/2016 [facility] D Dimer < 200 ng/mL Less Than 46 finding [phone] Quantitative 230 HCG < 0.60 mIU/mL 47 Inr/Protime 09/19/2016 [facility] Inr 0.91 0.89-1.11 [phone] Laboratory test 09/19/2016 [facility] Creatine 80 U/L 10-223 finding [phone] Kinase(CK) Troponin-I (TnI) 0.00 ng/mL <0.04 Comp Metabolic Panel 09/19/2016 [facility] Sodium 134 mmol/L 133- 145 [phone] Potassium 3.8 mmol/L 3.5-5.0 Chloride 103 mmol/L [...] Egfr Non- 87.4 >60 Egfr 112.4 >60 48 Laboratory test 09/19/2016 [facility] Lactic Acid 1.7 mmol/L 0.5- 2.0 49 finding [phone] CBC Auto Diff 09/19/2016 [facility] White Blood 12.9 10^3/uL High 3.5 -10.8 [phone] Count Red Blood Count 4.41 10^6/uL 4.0-5.4 Hemoglobin [...] Blood Cells % 0.1 Laboratory test 09/19/2016 [facility] Troponin-I (TnI) 0.00 ng/mL < 0.04 finding [phone] Laboratory test 07/23/2016 In House Hemoglobin A1c 6.4 finding Xray 07/08/2016 [facility] X-Ray, Chest, 2 no acute Views changes Laboratory test 04/24/2016 In House Hemoglobin A1c 5.8 finding 1 <5.0 Negative 5.0 - 25.0 Indeterminate (Repeat testing recommended after 72 hours) >25.0 Positive Perimenopausal women can display HCG levels of up to 20 mIU/mL 2 SEE RESULT BELOW Name: TYSON BRUNSON : [address]: Aliya DIETZ Acct: [id number] Unit: [id number] AGE: 32 Location: Re11/18/17 SEX: F Status: REG REF SPEC: [id number] MARIMAR: 11/18/17-1345 [facility] DR: Aliya DIETZ REQ: [id number] RECD: 11/18/17-1403 STATUS: KARINA QUINONEZ DR: Jose De Jesus Cerda MD _ ORDERED: FNA-IMG GUID BX, CYTO ADEQ-1ST P FINAL DIAGNOSIS Thyroid, right, Ultrasound guided fine needle aspiration: --Benign thyroid nodule- involutional type ([place] Class II). The specimen demonstrates abundant watery proteinaceous fluid, an abundant amount of benign appearing follicular epithelium arranged in uniform sheets, medium sized follicles and only occasional small groups. Abundant pigmented and non-pigmented macrophages are seen in the background. No features of papillary carcinoma are seen. In this clinical setting the risk of malignancy is less than 3%. Clinical management of this thyroid nodule should be based on clinical and radiographic features as well as the above findings. THYROID RIGHT - US GUIDED RIGHT THYROID NODULE CLINICAL HISTORY 1.5 x 0.9 x 1.1 cm right thyroid nodule. CONTINUED ON NEXT PAGE DEPARTMENT OF PATHOLOGY, [facility] [employer] [place], [place] [address] Rachid Leung M.D. Director [facility] # [id number] RUN DATE: 11/18/17 [facility] LAB LIVE PAGE 2 Patient: HARVEYTYSON [id number] (Continued) IMMEDIATE INTERPRETATION (Continued) IMMEDIATE INTERPRETATION Pass 1 2-adequate GROSS DESCRIPTION Ultrasound guided, fine needle aspiration x 2 passes with 3 Alcohol fixed slide(s). Signed by and Reported on: Rachid Leung MD [id number] END OF REPORT DEPARTMENT OF PATHOLOGY, [facility] [employer] [place], [place] [address] Rachid Leung M.D. Director [facility] # [id number] 3 Unit Technician: [id number] 4 Because ethnic data is not always [...] 5 Kidney failure <15 (or dialysis) 5 Unit Technician: [id number] Desirable: <150 Borderline High: 150-199 High: 200-499 Very High: >500 7 Desirable: <200 Borderline High: 200-239 High: >239 8 Low: <40 Desirable: 40-60 High: >60 9 Desirable: <100 Near Optimal: 100-129 Borderline High: 130-159 High: 160-189 Very High: >189 10 ADDITIONAL INFORMATION This test was developed and its performance characteristics determined by [facility] in a manner consistent with CLIA requirements. This test has not been cleared or approved by the U.S. Food and Drug Administration. Test Performed by: [facility] [address] [place] [id number] 11 REFERENCE VALUE 30-180 (Normotensive) <400 (Hypertensive) 12 REFERENCE VALUE 111-419 (Normotensive) <900 (Hypertensive) 13 REFERENCE VALUE 149-535 (Normotensive) <1300 (Hypertensive) 14 ADDITIONAL INFORMATION This test was developed and its performance characteristics determined by [facility] in a manner consistent with CLIA requirements. This test has not been cleared or approved by the U.S. Food and Drug Administration. Test Performed by: [facility] [address] [place] [address] 15 Therapeutic target for the treatment of diabetes mellitus patients is <7% HBA1C, and in selective patients <6.0%. Please refer to [place] [employer] diabetic care guidelines for further information. 16 Because ethnic data is not always readily [...] 15-29 5 Kidney failure <15 (or dialysis) 17 Because ethnic data is not always [...] 5 Kidney failure <15 (or dialysis) 18 Acute inflammation: >10.00 19 <5.0 Negative 5.0 - 25.0 Indeterminate (Repeat testing recommended after 72 hours) >25.0 Positive Perimenopausal women can display HCG levels of up to 20 mIU/mL 20 Because ethnic data is not always readily [...] 15-29 5 Kidney failure <15 (or dialysis) 21 Please note: The following may produce a false positive D Dimer test: - Rheumatoid factor greater than 60 IU/ml - Plasma hemoglobin greater than 0.05 gm/dl - Bilirubin greater than 50 mg/dl - Lipids greater than 1000 mg/dl - FDP greater than 20 ug/ml 22 CAS Severe Sepsis and Septic Shock Management Bundle Measure requires all lactic acids initially measuring >2.0 mmol/L be repeated. 23 <5.0 Negative 5.0 - 25.0 Indeterminate (Repeat testing recommended after 72 hours) >25.0 Positive Perimenopausal women can display HCG levels of up to 20 mIU/mL 24 >100 to <200 pg/mL: likely compensated congestive heart failure (CHF) 200 to 400 pg/mL: likely moderate CHF >400 pg/mL: likely moderate to severe CHF 25 Because ethnic data is not always readily [...] 15-29 5 Kidney failure <15 (or dialysis) 26 Please note the change in INR reference range effective 17. 27 Please note: The following may produce a false positive D Dimer test: - Rheumatoid factor greater than 60 IU/ml - Plasma hemoglobin greater than 0.05 gm/dl - Bilirubin greater than 50 mg/dl - Lipids greater than 1000 mg/dl - FDP greater than 20 ug/ml 28 [place] Severe Sepsis and Septic Shock Management Bundle Measure requires all lactic acids initially measuring >2.0 mmol/L be repeated. 29 Because ethnic data is not always readily [...] 15-29 5 Kidney failure <15 (or dialysis) 30 REFERENCE VALUE <4.0 (Negative) Test Performed by: [address] [address] 31 Negative serology. Celiac disease unlikely. However, approximately 10% of patients with celiac disease are seronegative. Also, patients who are already adhering to a gluten-free diet may be seronegative. If celiac disease is highly clinically suspected, consider HLA-DQ typing. Test Performed by: [facility] - [address] [address] 32 RESULT: 05:01,05 REFERENCE VALUE Not Applicable 33 RESULT: 02:01,03:01 DQ Serologic Equivalent: 2,7 REFERENCE VALUE Not Applicable 34 These genes are permissive for celiac disease. The absence of HLA celiac permissive genes would make the presence of celiac disease unlikely. However, these genes can also be present in the normal population. ADDITIONAL INFORMATION Method: Molecular typing of HLA antigens performed using reverse SSOP and/or SSP methods, reported as serological equivalents and low to medium resolution molecular values. Performing Laboratory CLIA# [id number] Test Performed by: [facility] - [address] [address] 35 REFERENCE VALUE <=1.0 (Negative) 36 REFERENCE VALUE <20.0 (Negative) 37 Tests for antibodies to dsDNA and SCOOTER antigens are not performed automatically unless the MP result is > or= 3.0 U. Studies performed at [facility] indicate that positive MP results <3.0 U are rarely accompanied by positive second order tests. Test Performed by: [facility] - [address] [address] 38 Acute inflammation: >10.00 39 No bands detected 40 No bands detected 41 Specific serologic response to B. burgdorferi infection [...] test (e.g., EIA). Test Performed by: [facility] - [facility] [address] [place] [address] 42 ADDITIONAL INFORMATION This test was developed and its performance characteristics determined by [facility] in a manner consistent with CLIA requirements. This test has not been cleared or approved by the U.S. Food and Drug Administration. 43 ADDITIONAL INFORMATION This test was developed and its performance characteristics determined by [facility] in a manner consistent with CLIA requirements. This test has not been cleared or approved by the U.S. Food and Drug Administration. 44 ADDITIONAL INFORMATION This test was developed and its performance characteristics determined by [facility] in a manner consistent with CLIA requirements. This test has not been cleared or approved by the U.S. Food and Drug Administration. Test Performed by: [facility] - [address] [address] 45 Normal Range 180 to 914 Indeterminate Range 145 to 180 Deficient Range <145 46 Please note: The following may produce a false positive D Dimer test: - Rheumatoid factor greater than 60 IU/ml - Plasma hemoglobin greater than 0.05 gm/dl - Bilirubin greater than 50 mg/dl - Lipids greater than 1000 mg/dl - FDP greater than 20 ug/ml 47 <5.0 Negative 5.0 - 25.0 Indeterminate (Repeat testing recommended after 72 hours) >25.0 Positive Perimenopausal women can display HCG levels of up to 20 mIU/mL 48 Because ethnic data is not always readily [...] 15-29 5 Kidney failure <15 (or dialysis) 49 [facility] Severe Sepsis and Septic Shock Management Bundle Measure requires all lactic acids initially measuring >2.0 mmol/L be repeated. Procedures Date Code Description Status 05/23/2017 79138 Electrocardiogram Complete Completed 04/09/2017 81063 X-Ray Wrist Three Views Completed 04/02/2017 73708 Brief Emotional/Behav Assessment W/ Scoring Doc Per Completed Standard Inst 03/29/2017 88770 Electrocardiogram Complete Completed 02/21/2017 401614003 Diabetic Foot Exam Completed 07/08/2016 03656 X-Ray Chest Two Views Completed Encounters Type Date Location Provider Dx Diagnosis Office Visit 01/12/2018 Main Office Carissa Rivero, J01.90 Acute sinusitis, 1:40p P.A. unspecified Z23 Encounter for immunization J01.00 Acute maxillary sinusitis, unspecified Office Visit 11/25/2017 11:25a Main Office Aliya Mar, N91.2 Amenorrhea , PA unspecified Z32.02 Encounter for test, result negative Office Visit 11/18/2017 10:05a Main Office Aliya Mar, S83.402D Sprain of unsp PA collateral ligament of left knee, subs encntr E11.65 Type 2 diabetes mellitus with hyperglycemia E04.1 Nontoxic single thyroid nodule Z79.4 jail (current) use of insulin Office Visit 10/23/2017 12:55p Main Office Aliya Mar PA M25.511 Pain in right shoulder M25.611 Stiffness of right shoulder, not elsewhere classified Office Visit 10/21/2017 11:05a Main Office Aliya Mar, E11.65 Type 2 diabetes PA mellitus with hyperglycemia I10 Essential (primary) hypertension E04.1 Nontoxic single thyroid nodule 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 Office Visit 05/01/2017 11:05a Main Office Aliya Mar, H66.92 Otitis media, PA unspecified, left ear B37.3 Candidiasis of vulva and vagina E11.65 Type 2 diabetes mellitus with hyperglycemia I10 Essential (primary) hypertension Office Visit 04/23/2017 2:00p Main Office Aliya Mar E11.65 Type 2 diabetes PA mellitus with hyperglycemia I10 Essential (primary) hypertension R00.2 Palpitations M50.10 Cervical disc disorder w radiculopathy, unsp cervical region Office Visit 04/09/2017 1:20p Main Office Aliya Mar PA M25.532 Pain in left wrist E11.65 Type 2 diabetes mellitus with hyperglycemia M50.10 Cervical disc disorder w radiculopathy, unsp cervical region S63.522A Sprain of radiocarpal joint of left wrist, initial encounter Y93.23 Actvty,snow (alp/dwnhl) ski, snow brd, sled, tobogn & tubing Office Visit 04/02/2017 10:40a Main Office Aliya Mar, E11.65 Type 2 diabetes PA mellitus with hyperglycemia I10 Essential (primary) hypertension R00.2 Palpitations M54.5 Low back pain Z13.89 Encounter for screening for other disorder F17.210 Nicotine dependence, cigarettes, uncomplicated Office Visit 03/29/2017 10:30a Main Office Carissa Rivero E11.9 Type 2 diabetes P.A. 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 mellitus without complications R00.2 Palpitations I10 Essential (primary) hypertension Z79.4 jail (current) use of insulin E11.65 Type 2 diabetes mellitus with hyperglycemia Office Visit 01/14/2017 1:30p Main Office Aliya Mar, E11.9 Type 2 diabetes PA mellitus without complications M54.5 Low back pain I10 Essential (primary) hypertension Z23 Encounter for immunization Office Visit 12/02/2016 4:45p Main Office Toño Fairbanks, E11.9 Type 2 diabetes D.O. mellitus without complications M54.5 Low back pain M43.06 Spondylolysis, lumbar region J34.3 Hypertrophy of nasal turbinates Office Visit 10/02/2016 2:40p Main Office Aliya Mar PA M54.2 Cervicalgia M54.5 Low back pain N63 Unspecified lump in breast E11.9 Type 2 diabetes mellitus without complications Office Visit 07/23/2016 9:45a Main Office Aliya Mar E11.9 Type 2 diabetes PA mellitus without complications N64.4 Mastodynia N63 Unspecified lump in breast I10 Essential (primary) hypertension Office Visit 07/08/2016 3:25p Main Office John Castillo M.D. R05 Cough J20.9 Acute bronchitis, unspecified Office Visit 05/07/2016 2:35p Main Office Aliya Mar PA N64.4 Mastodynia N63 Unspecified lump in breast Office Visit 04/24/2016 1:40p Main Office Aliya Mar PA N63 Unspecified lump in breast N64.4 Mastodynia E11.9 Type 2 diabetes mellitus without complications I10 Essential (primary) hypertension M15.0 Primary generalized (osteo)arthritis G43.009 Migraine w/o aura, not intractable, w/o status migrainosus Plan of Treatment Future Appointment(s):01/21/2018 11:00 am - Aliya Mar PA at Main [facility]6706/2017 - Aliya Mar, PAN91.2 Amenorrhea, unspecifiedComments:Urine in office was negative, will get serum HCG.Z32.02 Encounter for test, result negative
--- OUTSIDE RECORDS SUMMARY | 2018-01-31 13:56 | XMS REPORT | Continuity of Care Document ---
:1985 External Reference #:[id number] Author Name Phil Felix M.D. Address [address] [place] [place] [address] Care Team Providers Name Role Phone Aliya Mar Primary Care Physician Unavailable Payers Type Date Identification Numbers Payment Provider Subscriber Policy Number: [id number] [employer] [place] Tyson Brunson PayID: [id number] [address] [place] [address] Advance Directives Description No Information Available Problems Date Description Provider Status Onset: Essential hypertension Active Onset: Palpitations Active Onset: Anxiety Active Onset: Type 2 diabetes mellitus Active Onset: 01/15/2018 Migraine with typical aura Phil Felix M.D. 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 Hydrocodone-Aceta Active Tablets 5-325mg take 1 Unknown min0000 tablet by mouth every 4 to 6 hours if needed for pain Admelog Active Solution 100Unit/M daily Hektor, /0000 L Aliya P.A. Buspirone HCL Active Tablets 10mg 2 tablets Hektor, /0000 per day Aliya P.A. Fluconazole Active Tablets 150mg take 1 Unknown /0000 tablet by mouth immediately and repeat in 7 days if needed Lisinopril Active Tablets 10mg 1 tablet per Hektor, /0000 day Aliya P.A. Cyclobenzaprine Active Tablets 10mg take 1 Unknown HCL /0000 tablet by mouth three times a day if needed for Spasms Metoprolol Active Tablets 25mg take 1/2 Unknown Tartrate /0000 tablet by mouth twice a day Humalog Active Solution 100Unit/M daily Hektor, /0000 L Aliya P.A. Magnesium Oxide Active Tablets 500mg 1 tablet per Hektor, /0000 day Aliya P.A. Immunizations Description No Information Available Vital Signs Description No Information Available Results Description No Information Available Procedures Date Code Description Status 02/27/2015 02389 Est Patient Comprehensive Exam Completed Encounters Description No Information Available Plan of Treatment 01/15/2018 - Phil Felix M.D.E11.9 Type 2 diabetes mellitus without complicationsComments:Smoking can increase the risk of developing or worsening any eye related disease, as well as affect your overall health. If you are a smoker, we strongly recommend that you quit.If you are not a smoker, we strongly recommend that you do not start. You have diabetes. I do not detect any changes in both of your retinas from diabetes at this time. Proper control of your diabetes is important for the health of your eyes. Changes in your eyes from diabetes can happen without symptoms, so it is important that you have your eyes examined.Follow up:1 Year Follow Up DFE You can expect to have your eyes dilated at your next visit. If Dr. Felix orders any additional testing, it may require extra time. We recommend that you bring sunglasses, as dilation drops often make you light sensitive until they wear off. We always recommend you bring someone to drive you home if you are uncomfortable driving with your eyes dilated. If you have any questions before your next visit, feel free to call our office at .g43.109 Migraine with aura, not intractable, without status migrainosusComments:TRY USING A OVER THE COUNTER ARTIFICAL TEARS. SOME BRANDS I RECOMMEND ARE: SYSTANE, REFRESH, ANDTHERATEARS.USE THE DROPS TO BOTH EYES 3-4 TIMES A DAY FOR TWO WEEKS THEN DECREASE TO NEEDED. KEEPHYDRATED. IF YOUR HEADACHE PERSISTS, THEN YOU SHOULD FOLLOW UP AGAIN WITH YOUR PRIMARY CARE DOCTOR
[2018-01-31] MEDS ORDERED: Aspirin TAB* 325 MG PO ONE (14:37)
[2018-01-31 14:38] LABS: ABS Basophils 0.1 10^3/ul (0-0.2); ABS Eosinophils 0.3 10^3/ul (0-0.6); ABS Lymphocytes 2.5 10^3/ul (1.0-4.8); ABS Monocytes 0.4 10^3/ul (0-0.8); ABS Neutrophils 5.1 10^3/ul (1.5-7.7); ABS Nucleated RBC 0 10^3/ul; Eosinophil % 3.4 % (0-6); Hematocrit 41 % (35-47); Hemoglobin 14.1 g/dl (12.0-16.0); Mean Corpuscular HGB Conc 35 g/dl (31-36); Mean Corpuscular Hemoglobin 32 pg (27-31); Mean Corpuscular Volume 93 fL (80-97); Mean Platelet Volume 8.5 fL (7.4-10.4); Nucleated Red Blood Cells % 0.1; Platelet Count 337 10^3/ul (150-450); Red Blood Count 4.35 10^6/ul (4.00-5.40); Red Cell Distribution Width 13 % (10.5-15); White Blood Count 8.2 10^3/ul (3.5-10.8)
--- NOTE | 2018-01-31 14:41 | ED ---
HPI Chest Pain - HPI Summary HPI Summary: This patient is a 32 year old female [place] [facility] [place] friend with a chief complaint of chest pain since earlier today. Patient states that she has been feeling intermittent numbness in her arms for the past few days. Patient states that she was driving to the hospital to visit her sister, who had just had a baby, when she felt chest pain with the numbness, as well as SOB. The pain is rated 5/10 in severity. Symptoms aggravated by nothing. Symptoms alleviated by nothing. Patient additionally reports palpitations. Patient denies neck pain, headache, bowel/urinary dysfunction. The patient has a hx of diabetes and HTN. - History of Current Complaint Chief Complaint: EDChestPainROMI Time Seen by Provider: 01/31/18 13:57 Hx Obtained From: Patient Hx Last Menstrual Period: 3 wks ago Onset/Duration: Started Hours Ago, Still Present Timing: Constant Initial Severity: Moderate Pain Intensity: 5 Pain Scale Used: 0-10 Numeric Chest Pain Location: Diffuse Chest Pain Radiates: No Associated Signs and Symptoms: Positive: Negative - neck pain, headache, bowel/ urinary dysfunction, Other: - palpitations - Additional Pertinent History Primary Care Physician: TOYA - Allergy/Home Medications Allergies/Adverse Reactions: Allergies Allergy/AdvReac Type Severity Reaction Status Date / Time morphine Allergy Hives Verified 11/16/17 17:55 PMH/Surg Hx/FS Hx/Imm Hx Previously Healthy: No Endocrine/Hematology History: Reports: Hx Diabetes - TYPE II - IDDM Denies: Hx Thyroid Disease Cardiovascular History: Reports: Hx Hypertension - takes lisinopril 5mg for renal protection, Other Cardiovascular Problems/Disorders - tachycardia Denies: Hx Congestive Heart Failure, Hx Pacemaker/ICD Respiratory History: Denies: Hx Asthma, Hx Chronic Obstructive Pulmonary Disease (COPD) GI History: Reports: Hx Gall Bladder Disease - s/p cholecystectomy, Other GI Disorders - GALL STONES Denies: Hx Ulcer History: Reports: Hx Kidney Stones Denies: Hx Renal Disease Musculoskeletal History: Reports: Hx Back Problems, Hx Orthopedic Injury Denies: Hx Arthritis, Hx Osteoporosis Sensory History: Denies: Hx Contacts or Glasses, Hx Hearing Aid Opthamlomology History: Denies: Hx Contacts or Glasses Neurological History: Reports: Hx Headaches, Hx Migraine Psychiatric History: Denies: Hx Eating Disorder, Hx Panic Disorder, Hx of Violent Episodes Against Others - Cancer History Cancer Type, Location and Year: Has High blood sugar that they are watching; not classified as diabetic at this time. - Surgical History Surgery Procedure, Year, and Place: [place] [facility] [place]UMBAR laminectomy L5 r/t degenerative disc disease 2006,. SEPTOPLASTY 2012 [place]. Mass removal right bicep 01/2016. Lap appendectomy Hx Anesthesia Reactions: No Infectious Disease History: No Infectious Disease History: Denies: Hx Clostridium Difficile, Hx Hepatitis, Hx Human Immunodeficiency Virus (HIV), Hx of Known/Suspected MRSA, Hx Shingles, Hx Tuberculosis, Hx Known/ Suspected VRE, Hx Known/Suspected VRSA, History Other Infectious Disease, Traveled Outside the [place] in Last 30 Days - Family History Known Family History: Positive: Cardiac Disease, Hypertension, Diabetes, Other - CVA- paternal - Social History Alcohol Use: Rare Alcohol Amount: Weekends only Hx Substance Use: No Substance Use Type: Reports: None Hx Tobacco Use: Yes Smoking Status (MU): Light Every Day Tobacco Smoker Type: Cigarettes Amount Used/How Often: 3-4 CIG/DAY Length of Time of Smoking/Using Tobacco: 5 years Have You Smoked in the Last Year: No Review of Systems Negative: Fever Cardiovascular: Negative Positive: Palpitations, Chest Pain Positive: Shortness Of Breath Genitourinary: Negative - bowel/urinary dysfunction Musculoskeletal: Negative - neck pain Negative: Headache All Other Systems Reviewed And Are Negative: Yes Physical Exam - Summary Physical Exam Summary: VITAL SIGNS: Reviewed. GENERAL: Patient is an obese women who is lying comfortable in the stretcher. Patient is not in any acute respiratory distress. HEAD AND FACE: No signs of trauma. No ecchymosis, hematomas or skull depressions. No sinus tenderness. EYES: PERRLA, EOMI x 2, No injected conjunctiva, no nystagmus. EARS: Hearing grossly intact. Ear canals and tympanic membranes are within normal limits. MOUTH: Oropharynx within normal limits. NECK: Supple, trachea is midline, no adenopathy, no JVD, no carotid bruit, no c- spine tenderness, neck with full ROM. CHEST: Symmetric, no tenderness at palpation LUNGS: Clear to auscultation bilaterally. No wheezing or crackles. CVS: Regular rate and rhythm, S1 and S2 present, no murmurs or gallops appreciated. ABDOMEN: Soft, non-tender. No signs of distention. No rebound no guarding, and no masses palpated. Bowel sounds are normal. EXTREMITIES: FROM in all major joints, no edema, no cyanosis or clubbing. NEURO: Alert and oriented x 3. No acute neurological deficits. Speech is normal and follows commands. SKIN: Dry and warm Triage Information Reviewed: Yes Vital Signs On Initial Exam: Initial Vitals Temp Pulse Resp BP Pulse Ox 99.2 F 119 20 173/89 100 01/31/18 13:40 01/31/18 13:40 01/31/18 13:40 01/31/18 13:40 01/31/18 13:40 Vital Signs Reviewed: Yes Diagnostics - Vital Signs Vital Signs Temp Pulse Resp BP Pulse Ox 01/31/18 13:40 99.2 F 119 20 173/89 100 - Laboratory Result Diagrams: 01/31/18 14:27 01/31/18 14:27 Lab Statement: Any lab studies that have been ordered have been reviewed, and results considered in the medical decision making process. - Radiology CXR Radiology Interpretation Completed By: Radiologist Summary of Radiographic Findings: CXR reveals, per radiologist, IMPRESSION: NO ACTIVE CARDIOPULMONARY DISEASE. ED physician has reviewed this radiology report. - EKG 1347 Cardiac Rate: Tachycardia EKG Rhythm: Sinus Tachycardia - 102 BPM Summary of EKG Findings: Sinus Tachycardia (102 BPM), no ST elevations Chest Pain Course/Dx - Course Assessment/Plan: This patient is a 32 year old female presenting [place] [facility] [place] friend with a chief complaint of chest pain since earlier today. Patient states that she has been feeling intermittent numbness in her arms for the past few days. Patient states that she was driving to the hospital to visit her sister, who had just had a baby, when she felt chest pain with the numbness, as well as SOB. The pain is rated 5/10 in severity. Symptoms aggravated by nothing. Symptoms alleviated by nothing. Patient additionally reports palpitations. Patient denies neck pain, headache, bowel/urinary dysfunction. The patient has a hx of diabetes and HTN. Blood work without any significant abnormality except for glucose of 250 and magnesium 1.8. 2 troponins 4 hours apart is 0.00. The patient continues to be asymptomatic. The heart to score is equal to 1 therefore, there is low risk for acute coronary syndrome. I also do not suspect a PE since the patient is not hypoxic or tachycardic. However I believe that the patient may benefit of a cardiology consult as an outpatient. The patient understands and agrees. The patient will give herself insulin since the patient has a insulin pump. I discussed all the findings and test results with the patient. Patient was instructed to return to the emergency room immediately if any of the symptoms return or worsens. Plan of care was discussed with the patient and understands and agrees. All questions were answered at patient satisfaction. There were no further complaints or concerns. Lung exam before discharge: CTA B/L. Good air exchange. No wheezing or crackles heard. CVS: S1 and S2 present. No murmurs appreciated. Patient is alert and oriented x 3. Patient is hemodynamically stable. Patient will be discharged home with follow up PCP in the next 2-3 days - Chest Pain Differential Diagnosis/HQI/PQRI: Acute TN, ACS, Angina, CHF, Chest Wall, GI Disease, Lower Respiratory Infection - Diagnoses Provider Diagnoses: Atypical chest pain Discharge - Sign-Out/Discharge Documenting (check all that apply): Patient Departure - Discharge Plan Condition: Stable Disposition: HOME Patient Education Materials: Chest Pain (ED) Referrals: Zaid DIETZ,Aliya Franklin [Primary Care Provider] - 3 Days Additional Instructions: Return to the ED for any new or worsening symptoms. - Billing Disposition and Condition Condition: STABLE Disposition: Home - Attestation Statements Document Initiated by Zeina: Yes Documenting Scribe: Aggie Duran Provider For Whom Zeina is Documenting (Include Credential): Juan Villa MD Scribe Attestation: Aggie Coats scribed for Juan Villa MD on 01/31/18 at 1853. Scribe Documentation Reviewed: Yes Provider Attestation: The documentation as recorded by the Aggie soto accurately reflects the service I personally performed and the decisions made by me, Juan Villa MD
[2018-01-31] MEDS ORDERED: Aspirin 81 mg CHEW TAB* 81 MG TAB.CHEW ONE (14:45)
[2018-01-31] MEDS ORDERED: Aspirin 81 mg CHEW TAB* 81 MG TAB.CHEW PO ONE (14:46)
[2018-01-31 14:56] LABS: EGFR Non-African American 103.8 (>60)
[2018-01-31] MEDS ORDERED: Magnesium Oxide TAB* 400 MG PO ONE (16:19)
[2018-01-31] MEDS ORDERED: Insulin REGULAR(*) 1 UNITS UNIT IV PUSH ONE (17:38)
[2018-01-31 17:46] VITALS: BP 136/79
== END 2018-01-31 17:45 | disposition home or self-care (01) ==
LOC: ED 13:39
DX: R07.89 Other chest pain (principal); R00.2 Palpitations; R06.02 Shortness of breath; I10 Essential (primary) hypertension; E11.9 Type 2 diabetes mellitus without complications; F17.210 Nicotine dependence, cigarettes, uncomplicated
CPT/HCPCS: 36415; 71045; 80053; 82550; 82553; 83605; 83735; 83880; 84443; 84484; 85025; 93005; 99282; A9270-GY

== ENCOUNTER 2018-11-01 21:21 | Emergency (ER) | payer OTHER ==
--- NOTE | 2018-11-01 21:29 | UC ---
Cardiac HPI - HPI Summary HPI Summary: Patient presents to urgent care stating last night she had some chest pressure that resolved. Patient states the pressure came back today at around 7:00. Patient states she took her evening lisinopril, metoprolol, buspirone without improvement. Patient states she has pressure that radiates to her jaw and left axilla. Patient states she does have "lumps" in her left armpit that she seen her doctor for on Friday anything immediately lipoma versus lymphadenopathy. Patient states she didn't have chest pain associated with this. Patient has been evaluated for chest pain in the past but states she has been diagnosed with tachycardia. Patient is not on control pills. Patient without a history of DVT. Patient states her father 1 month ago from stroke. Patient states father has a history of cardiac disease as well. Patient states her blood sugars normally run about 500 and they were in the 350s today. Patient states pain is not positional. Medications reviewed this visit. - History of Current Complaint Stated Complaint: CHEST PAIN Hx Obtained From: Patient, Medical Records Hx Last Menstrual Period: 3 wks ago - Allergy/Home Medications Allergies/Adverse Reactions: Allergies Allergy/AdvReac Type Severity Reaction Status Date / Time morphine Allergy Hives Verified 11/01/18 21:30 PMH/Surg Hx/FS Hx/Imm Hx Endocrine History: Diabetes Cardiovascular History: Hypertension, Other - tachycardia - Surgical History Surgical History: Yes Surgery Procedure, Year, and Place: GENE 2003 [facility]. LUMBAR laminectomy L5 r/t degenerative disc disease 2006,. SEPTOPLASTY 2012 [place]. Mass removal right bicep 01/2016. appendectomy - Family History Known Family History: Positive: Cardiac Disease, Hypertension, Diabetes, Other - CVA- paternal - Social History Lives: With Family Alcohol Use: Rare Alcohol Amount: Weekends only Substance Use Type: None Smoking Status (MU): Light Every Day Tobacco Smoker Type: Cigarettes Amount Used/How Often: 3-4 CIG/DAY Length of Time of Smoking/Using Tobacco: 5 years Have You Smoked in the Last Year: No When Did the Patient Quit Smoking/Using Tobacco: 3 years Household Exposure Type: Cigarettes - Immunization History Most Recent Influenza Vaccination: 2016 Most Recent Tetanus Shot: 4 years ago?? Most Recent Pneumonia Vaccination: 2016 Review of Systems All Other Systems Reviewed And Are Negative: Yes Constitutional: Positive: Negative Skin: Positive: Negative Eyes: Positive: Negative ENT: Positive: Negative Respiratory: Negative: Shortness Of Breath Cardiovascular: Positive: Chest Pain Gastrointestinal: Positive: Negative. Negative: Nausea Genitourinary: Positive: Negative Neurovascular: Positive: Negative Musculoskeletal: Positive: Negative Neurological: Positive: Negative Is Patient Immunocompromised?: No Physical Exam - Summary Physical Exam Summary: Vital Signs Reviewed: Yes A+Ox3, no distress Eyes: Conjunctiva Clear, SHERYL. EOM intact and full ENT: Hearing grossly normal TM x 2 clear, mmoist, uvula midline, no exudate, no erythema Neck: Positive: Supple Respiratory: Positive: No respiratory distress, No accessory muscle use + CTA throughout no w/r Cardiovascular: RRR nl s1, s2 no m/r CBT <2 sec PT with reproducible chest wall pain - states different the pain that brought her to ED abd soft + BS nt/nd no guarding, no distension Musculoskeletal Exam: CH x 4 without difficulty Strength Intact, ROM Intact Neurological: Positive: Alert, + sensation throughout Psychological: Positive: Normal Response To transcript evaluator Skin: Positive: no rash, no ecchymosis, left axilla - pt with palpable, mobile masses in left axilla and prox medial brachial area - non tender, no edema Triage Information Reviewed: Yes - Assessment/Plan Course Of Treatment: Patient is a 33-year-old female with a history of insulin-dependent diabetes as well as hypertension. Patient states yesterday and again this evening she developed chest pain that radiates to her jaw and left axilla. Patient denies shortness of breath today but states she was short of breath yesterday. Patient denies trauma, fevers, chills. Patient does have masses in the left eczema that she's got up with her primary on Friday. Patient's age or something similar axilla was biopsied lipoma. Patient cannot take anything for her discomfort today other than her nightly lisinopril, metoprolol, buspirone without effect. Patient states she got anxious tonight and so she decided to come evaluated. On exam patient with mild tachycardia the heart rate of 100 as well as blood pressure slightly elevated 141 systolic. Patient does have a history of that. EKG shows inverted T-wave in 3 which is old compared to previous. After discussion with patient recommend patient reemerged from the for further evaluation and treatment. Patient in agreement. Patient will go by EMS, will be given aspirin, and will check fingerstick. Give report to Dr. Easton. Patient comfortable agreement with plan. - Clinical Impression Provider Diagnosis: Chest pain Discharge - Sign-Out/Discharge Documenting (check all that apply): Patient Departure All imaging exams completed and their final reports reviewed: No Studies - Discharge Plan Condition: Fair Disposition: TRANS HIGHER LVL OF CARE FAC Referrals: Aliya Mar PA [Primary Care Provider] - - Billing Disposition and Condition Condition: FAIR Disposition: Trans Higher Lvl of Care Fac
[2018-11-01] MEDS ORDERED: Aspirin 81 mg CHEW TAB* 81 MG TAB.CHEW PO ONE (21:44)
[2018-11-01 22:00] VITALS: BP 150/84
== END 2018-11-01 21:58 | disposition short-term general hospital (02) ==
LOC: UCEAST 21:21
DX: R07.9 Chest pain, unspecified (principal); F17.210 Nicotine dependence, cigarettes, uncomplicated; E11.9 Type 2 diabetes mellitus without complications; I10 Essential (primary) hypertension; Z88.5 Allergy status to narcotic agent
CPT/HCPCS: 93005; 99213; A9270-GY; G0463

== ENCOUNTER 2018-11-01 22:20 | Observation (INO) | payer OTHER ==
--- NOTE | 2018-11-01 23:06 | ED ---
HPI Chest Pain - HPI Summary HPI Summary: Patient is a 33 y/o F presenting to ED via EMS with complaints of left anterior chest pain. She reports that she had an episode of chest pain last night, , but it resolved by this morning, 11/01/18. At around 1900 today, 11/01/18, she experienced onset of chest pain once more. She describes the pain as dull with intermittent sharpness. She reports that she had been sitting with family when chest pain onset tonight. Pain radiates to her left jaw and left shoulder. Pain is still present but not as intense as previously. Patient was given 324 mg ASA at convenient care, patient was sent to [facility] for further evaluation. Hx of tachycardia, patient does not make note of any previous similar episodes to her present Sx. Patient is a diabetic and notes that her BG has been high recently. She has not had a stress test previously. Father, age 58, of a stroke a month ago. On triage, pain is rated 5/10, nothing is noted to aggravate /alleviate Sx. Home medications and allergies are reviewed. - History of Current Complaint Chief Complaint: EDChestPainROMI Time Seen by Provider: 11/01/18 22:36 Hx Obtained From: Patient Hx Last Menstrual Period: 3 wks ago Onset/Duration: Started Hours Ago, Still Present Timing: Constant, Lasting Hours Initial Severity: Severe Current Severity: Moderate Pain Intensity: 5 Pain Scale Used: 0-10 Numeric Chest Pain Location: Left Anterior Chest Pain Radiates: Yes Chest Pain Radiates To:: Shoulder - left, Jaw - left Character: Dull/Aching, Sharp/Stabbing - intermittently Aggravating Factor(s): Nothing Alleviating Factor(s): Nothing Associated Signs and Symptoms: Positive: Chest Pain. Negative: Fever - Additional Pertinent History Primary Care Physician: [id number] - Allergy/Home Medications Allergies/Adverse Reactions: Allergies Allergy/AdvReac Type Severity Reaction Status Date / Time morphine Allergy Hives Verified 11/01/18 22:30 Home Medications: Home Medications Hydrocodone-Acetamin 5-325 mg 1 tab PO Q4HR PRN 11/01/18 [History Confirmed 02/09] Insulin Lispro [Admelog] units SUBCUT DAILY 11/01/18 [History] PMH/Surg Hx/FS Hx/Imm Hx Endocrine/Hematology History: Reports: Hx Diabetes - TYPE II - IDDM Denies: Hx Thyroid Disease Cardiovascular History: Reports: Hx Hypertension - takes lisinopril 5mg for renal protection, Other Cardiovascular Problems/Disorders - tachycardia Denies: Hx Congestive Heart Failure, Hx Pacemaker/ICD Respiratory History: Denies: Hx Asthma, Hx Chronic Obstructive Pulmonary Disease (COPD) GI History: Reports: Hx Gall Bladder Disease - s/p cholecystectomy, Other GI Disorders - GALLSTONES Denies: Hx Ulcer History: Reports: Hx Kidney Stones Denies: Hx Renal Disease Musculoskeletal History: Reports: Hx Back Problems, Hx Orthopedic Injury Denies: Hx Arthritis, Hx Osteoporosis Sensory History: Denies: Hx Contacts or Glasses, Hx Hearing Aid Opthamlomology History: Denies: Hx Contacts or Glasses Neurological History: Reports: Hx Headaches, Hx Migraine Psychiatric History: Denies: Hx Eating Disorder, Hx Panic Disorder, Hx of Violent Episodes Against Others - Cancer History Cancer Type, Location and Year: Has High blood sugar that they are watching; not classified as diabetic at this time. - Surgical History Surgery Procedure, Year, and Place: [place] [facility] [place] LUMBAR laminectomy L5 r/t degenerative disc disease 2006,. SEPTOPLASTY 2012 [place]. Mass removal right bicep 01/2016. appendectomy Hx Anesthesia Reactions: No Infectious Disease History: No Infectious Disease History: Denies: Hx Clostridium Difficile, Hx Hepatitis, Hx Human Immunodeficiency Virus (HIV), Hx of Known/Suspected MRSA, Hx Shingles, Hx Tuberculosis, Hx Known/ Suspected VRE, Hx Known/Suspected VRSA, History Other Infectious Disease, Traveled Outside the [place] in Last 30 Days - Family History Known Family History: Positive: Cardiac Disease, Hypertension, Diabetes, Other - CVA- paternal - Social History Alcohol Use: Occasionally Alcohol Amount: Weekends only Hx Substance Use: No Substance Use Type: Reports: None Hx Tobacco Use: Yes Smoking Status (MU): Former Smoker Type: Cigarettes Amount Used/How Often: 3-4 CIG/DAY Length of Time of Smoking/Using Tobacco: 5 years Have You Smoked in the Last Year: No Review of Systems Negative: Fever - on vitals, temp is 97.7 F Positive: Chest Pain - with radiation to left shoulder and jaw All Other Systems Reviewed And Are Negative: Yes Physical Exam - Summary Physical Exam Summary: VITAL SIGNS: Reviewed. GENERAL: Patient is a well-developed and nourished female who is lying comfortable in the stretcher. Patient is not in any acute respiratory distress. HEAD AND FACE: No signs of trauma. No ecchymosis, hematomas or skull depressions. No sinus tenderness. EYES: PERRLA, EOMI x 2, No injected conjunctiva, no nystagmus. EARS: Hearing grossly intact. Ear canals and tympanic membranes are within normal limits. MOUTH: Oropharynx within normal limits. NECK: Supple, trachea is midline, no adenopathy, no JVD, no carotid bruit, no c- spine tenderness, neck with full ROM CHEST: Symmetric, no tenderness at palpation LUNGS: Clear to auscultation bilaterally. No wheezing or crackles. CVS: Regular rate and rhythm, S1 and S2 present, no murmurs or gallops appreciated. ABDOMEN: Soft, non-tender. No signs of distention. No rebound no guarding, and no masses palpated. Bowel sounds are normal. EXTREMITIES: FROM in all major joints, no edema, no cyanosis or clubbing. NEURO: Alert and oriented x 3. No acute neurological deficits. Speech is normal and follows commands. SKIN: Dry and warm Triage Information Reviewed: Yes Vital Signs On Initial Exam: Initial Vitals Temp Pulse Resp BP Pulse Ox 97.7 F 76 18 115/86 97 11/01/18 22:25 11/01/18 22:25 11/01/18 22:25 11/01/18 22:25 11/01/18 22:25 Vital Signs Reviewed: Yes Diagnostics - Vital Signs Vital Signs Temp Pulse Resp BP Pulse Ox 11/01/18 22:25 97.7 F 76 18 115/86 97 - Laboratory Result Diagrams: 11/01/18 23:08 11/01/18 23:07 Lab Statement: Any lab studies that have been ordered have been reviewed, and results considered in the medical decision making process. - Radiology CXR Radiology Interpretation Completed By: ED Physician Summary of Radiographic Findings: CXR showed no acute process, pending official report. - EKG 2223 Cardiac Rate: NL - rate of 83 BPM EKG Rhythm: Sinus Rhythm Summary of EKG Findings: EKG showed sinus rhythm with rate of 83 BPM, non- specific T wave changes. Chest Pain Course/Dx - Course Course Of Treatment: Patient is a 33 y/o F w/ Hx of diabetes and tachycardia who presents to ED via EMS with complaints of left anterior chest pain. She reports that she had an episode of chest pain last night, 10/31/18, but it resolved by this morning, 11/01/18. At around 1900 today, 11/01/18, she experienced onset of chest pain once more. She describes the pain as dull with intermittent sharpness. She reports that she had been sitting with family when chest pain onset tonight. Pain radiates to her left jaw and left shoulder. Pain is still present but not as intense as previously. Patient was given 324 mg ASA at convenient care, patient was sent to [facility] for further evaluation. Physical exam is unremarkable. EKG showed sinus rhythm with rate of 83 BPM, non-specific T wave changes. CXR showed no acute process. Labs showed sodium 133, glucose 239 , lactic acid 1.6, alk phos 114, trop 0, beta HCG < 0.60. During ED course, patient received 4 units of insulin IV. 0016 - Patient's case was discussed with Dr. Bush, Dr. Bush accepts patient for admission. - Diagnoses Provider Diagnoses: Chest pain - Provider Notifications Discussed Care Of Patient With: Tim Bush Time Discussed With Above Provider: 00:16 Instructed by Provider To: Other - Patient's case was discussed with Dr. Bush, Dr. Bush accepts patient for admission. Discharge - Sign-Out/Discharge Documenting (check all that apply): Patient Departure - admit Patient Received Moderate/Deep Sedation with Procedure: No - Discharge Plan Condition: Stable Disposition: ADMITTED TO [facility] Referrals: Aliya Mar PA [Primary Care Provider] - - Attestation Statements Document Initiated by Scribe: Yes Documenting Scribe: SRIDEVI ABDALLA Provider For Whom Levonibe is Documenting (Include Credential): JANETTE GALICIA MD [employer] Attestation: SRIDEVI Coats, scribed for JANETTE GALICIA MD on 11/02/18 at 0018. Status of Scribe Document: Ready
[2018-11-01 23:20] LABS: ABS Basophils 0.1 10^3/ul (0-0.2); ABS Eosinophils 0.1 10^3/ul (0-0.6); ABS Monocytes 0.5 10^3/ul (0-0.8); ABS Neutrophils 6.7 10^3/ul (1.5-7.7); Eosinophil % 1.4 %; Hematocrit 41 % (35-47); Hemoglobin 14.2 g/dL (12.0-16.0); Lymphocyte % 28.7 %; Mean Corpuscular HGB Conc 35 g/dL (31-36); Mean Corpuscular Hemoglobin 31 pg (27-31); Mean Corpuscular Volume 90 fL (80-97); Mean Platelet Volume 8.8 fL (7.4-10.4); Nucleated Red Blood Cells % 0.1; Platelet Count 367 10^3/uL (150-450); Red Blood Count 4.56 10^6 /uL (3.70-4.87); Red Cell Distribution Width 14 % (10-15); White Blood Count 10.3 10^3/uL (3.5-10.8)
[2018-11-01 23:28] LABS: Activated Partial Thrombo Time 34.3 seconds (26.0-38.0)
[2018-11-01 23:36] LABS: ALT 48 U/L (7-52); AST 27 U/L (13-39); Albumin 4.4 g/dL (3.2-5.2); Albumin/Globulin Ratio 1.1 (1-3); Alkaline Phosphatase 114 U/L (34-104); Anion Gap 10 mmol/L (2-11); BUN/Creatinine Ratio 19.7 (8-20); Blood Urea Nitrogen 14 mg/dL (6-24); CO2 Carbon Dioxide 22 mmol/L (22-32); Chloride 101 mmol/L (101-111); EGFR African American 114.7 (>60); EGFR Non-African American 94.8 (>60); Glucose 239 mg/dL (70-100); Potassium 3.9 mmol/L (3.5-5.0); Sodium 133 mmol/L (135-145); Total Protein 8.4 g/dL (6.4-8.9)
[2018-11-01 23:43] LABS: HCG Pregnancy < 0.60 mIU/mL
[2018-11-01] MEDS ORDERED: Insulin REGULAR(*) 1 UNITS UNIT IV PUSH ONE (23:46)
[2018-11-02] MEDS ORDERED: Cyclobenzaprine TAB* 10 MG PO PRN (03:04)
--- NOTE | 2018-11-02 04:32 | HP ---
CC: HERMELINDA Marino * ADMISSION HISTORY AND PHYSICAL: DATE OF ADMISSION: 11/02/18 CHIEF COMPLAINT: Chest pain. HISTORY OF PRESENT ILLNESS: This is a 33-year-old female with past medical history of type 2 diabetes; on insulin pump, hypertension, previous history of tachycardia; for which she was started on metoprolol; she is unclear what the cause of tachycardia is, chronic lower back pain, and anxiety disorder who came in due to chest pain. The patient states that she was in her usual state of health up until 10/31/18, when she started having an episode of chest pain which resolved by 11/01/18, but again evening of 11/01/18 the patient started having more and more chest pain. This was dull in nature and was 5/10 in intensity radiating to the left jaw and left arm without any alleviating factor. This was constant in nature, no aggravation with any activity as she was just resting and watching TV. Given her family history of dad having a coronary event at a young age, she finally decided to come to the ER for further evaluation. The patient otherwise denies any nausea or vomiting. She did take aspirin at the [facility] before being sent to [facility] for further evaluation. She also states that recently her sugars have been elevated. She otherwise offers no other headache, numbness or tingling. She did have some palpitations earlier today, but she just thought that this was all due to her anxiety and ignored it for the last 2 days before finally deciding to come to the ER. PAST MEDICAL HISTORY: As mentioned: 1. Type 2 diabetes, on insulin pump. 2. Hypertension. 3. Tachycardia, on metoprolol. 4. History of kidney stones. 5. History of chronic low back pain due to degenerative disk disease. 6. History of migraine headache. 7. History of anxiety disorder. PAST SURGICAL HISTORY: She has had cholecystectomy, lumbar laminectomy in the L5 region, 2 septoplasties, right biceps mass resection, appendectomy, and more recent right axillary lymph node biopsy on 10/14/18. HOME MEDICATIONS: 1. Lisinopril 10 mg oral twice a day. 2. Hydrocodone with acetaminophen 1 tablet q.4 hours p.r.n. 3. Cyclobenzaprine 10 mg t.i.d. p.r.n. 4. Buspirone 10 mg oral p.o. b.i.d. 5. Metoprolol 12.5 mg oral daily. 6. Magnesium oxide 500 mg oral daily. 7. Lispro insulin via insulin pump. ALLERGIES: The patient states that she is allergic to MORPHINE, which causes her to have hives. FAMILY HISTORY: As mentioned, father at age 58 with stroke; he also had a history of hypertension, heart stents, and peripheral vascular disease with peripheral arm stents as well. Mom, otherwise, is healthy. SOCIAL HISTORY: The patient quit smoking about a year ago, but prior to that only used to smoke about 2 cigarettes a day, that too socially, for the last 3 years. Denies any alcohol or drug abuse. Currently lives with her mother and does not have a job. REVIEW OF SYSTEMS: A 14-point review of systems did not reveal any new information, other than what is stated in the HPI. PHYSICAL EXAMINATION GENERAL: The patient is awake, alert, and oriented x3. She does not appear to be in any acute respiratory distress. VITAL SIGNS: In the ER, BP was noted to be 158/97, heart rate 81, respiration rate 20, saturation 97% on room air, temperature documented at 97.7. HEAD AND NECK: Atraumatic, normocephalic. Bilateral pupils are reactive. Oral mucosa was moist. Neck: Supple. No jugular venous distention. LUNGS: Clear to auscultation bilaterally. No wheezing, rhonchi, or rales. HEART: S1, S2. Regular rate and rhythm. ABDOMEN: Soft, nontender, and nondistended. EXTREMITIES: No cyanosis, clubbing, or edema. DIAGNOSTIC STUDIES/LAB DATA: Labs: CBC was unremarkable. Coagulation profile unremarkable. Comprehensive metabolic panel was unremarkable. Lactic acid was normal. Two sets of troponin were negative. IMPRESSION: This is a 33-year-old female with past medical history of hypertension, diabetes, previous history of smoking, and family history of myocardial infarction at a young age here due to chest pain. ASSESSMENT AND PLAN: 1. Chest pain, rule out acute coronary syndrome. We will get a stress test in the morning and see if serial cardiac enzymes are negative and an echocardiogram in the morning. 2. History of diabetes. Restart her insulin pump. We will add a.c. and h.s. fingerstick monitoring to aid with her pump management. 3. History of hypertension. Restart home medication. 4. History of chronic low back pain. Restart home pain medications. 5. History of anxiety. Restart BuSpar. 6. DVT prophylaxis with encouraging ambulation. [id number]/[facility] #: [id number] LINDA
[2018-11-02 06:03] LABS: ABS Eosinophils 0.2 10^3/ul (0-0.6); ABS Lymphocytes 4.2 10^3/ul (1.0-4.8); ABS Monocytes 0.5 10^3/ul (0-0.8); ABS Neutrophils 5.7 10^3/ul (1.5-7.7); Eosinophil % 1.8 %; Hematocrit 40 % (35-47); Hemoglobin 14.1 g/dL (12.0-16.0); Lymphocyte % 39.7 %; Mean Corpuscular HGB Conc 35 g/dL (31-36); Mean Corpuscular Hemoglobin 31 pg (27-31); Mean Corpuscular Volume 90 fL (80-97); Mean Platelet Volume 8.9 fL (7.4-10.4); Nucleated Red Blood Cells % 0.1; Platelet Count 354 10^3/uL (150-450); Red Blood Count 4.48 10^6 /uL (3.70-4.87); Red Cell Distribution Width 14 % (10-15); White Blood Count 10.6 10^3/uL (3.5-10.8)
[2018-11-02 06:19] LABS: BUN/Creatinine Ratio 22.4 (8-20); Calcium 9.9 mg/dL (8.6-10.3); EGFR African American 122.7 (>60); EGFR Non-African American 101.4 (>60); Potassium 3.5 mmol/L (3.5-5.0)
[2018-11-02] MEDS: HYDROcodone/ACETAMIN 5-325 MG* 1 TAB PO PRN ×2 (07:23→13:48)
[2018-11-02] MEDS ORDERED: Perflutren Lipid Microsphere* 3 ML VIAL ONE (07:54)
[2018-11-02] MEDS ORDERED: Metoprolol Tartrate TAB* 25 MG PO SCH (09:00)
[2018-11-02] MEDS ORDERED: busPIRone TAB* 10 MG PO SCH (09:00)
[2018-11-02] MEDS ORDERED: Lisinopril TAB* 10 MG PO SCH (09:00)
[2018-11-02] MEDS ORDERED: Magnesium Oxide TAB* 400 MG PO SCH (09:00)
--- NOTE | 2018-11-02 10:43 | ECHO ---
*[facility]* [place] [address] Fax #: [phone] Transthoracic Echocardiogram Patient: Tyson Brunson : 1985 Study Date: 11/02/2018 Age: 33 Gender: F HR: 87 bpm Height: 66 in /167.6 cm BSA: 2.04 m^2 Weight: 209.6 lb /95.3 kg BMI: 33.9 kg/m^2 *Arranger Assembler: * Pina Mina [facility] *Referring Physician: * Tim Bush *Reading Physician: * Olvin Edwards MD Indications: Chest Pain, unspecified. History: Tachycardia. Risk factors: Former tobacco use. Diabetes mellitus. Obese. Conclusions Summary: - Left ventricle: Systolic function is normal. The estimated ejection fraction is 55-60%. Wall motion is normal; there are no regional wall motion abnormalities. - Mitral valve: There is no significant regurgitation. - Aortic valve: There is no evidence of stenosis. - Tricuspid valve: There is physiologic regurgitation. - Pericardium, extracardiac: There is no significant pericardial effusion. - Study data: No prior study is available for comparison. Study data: Transthoracic echocardiogram. Procedure: Transthoracic echocardiography was performed. Image quality was suboptimal. The study was technically limited due to body habitus. Intravenous Definity , 2.5 mlswas administered. Complete 2D, spectral Doppler, and color flow Doppler. Location: Bedside. Patient status: Inpatient. Patient room number: 436. No prior study is available for comparison. Rhythm: Normal sinus rhythm. Findings Left ventricle: The cavity size is below normal. Wall thickness is normal. Systolic function is normal. The estimated ejection fraction is 55-60%. Wall motion is normal; there are no regional wall motion abnormalities. There is no consistent Doppler evidence of clinically significant diastolic dysfunction. Right ventricle: The cavity size is normal. Systolic function is normal. Left atrium: The atrium is normal in size. Right atrium: The atrium is mildly dilated. Mitral valve: The leaflets are normal thickness. There is no evidence of stenosis. There is no significant regurgitation. Aortic valve: The valve is trileaflet. The leaflets are normal thickness. There is no evidence of stenosis. There is no significant regurgitation. Tricuspid valve: The leaflets are normal thickness. There is no evidence of stenosis. There is physiologic regurgitation. Pulmonic valve: The leaflets are normal thickness. There is no evidence of stenosis. There is no significant regurgitation. Aorta: Ascending aorta: The ascending aorta is appears normal. The aortic root appears normal. The aortic arch appears normal. Pericardium: A prominent pericardial fat pad is present. There is no significant pericardial effusion. Pulmonary arteries: Poorly visualized. Systolic pressure can not be accurately estimated. Systemic veins: Inferior vena cava: Not visualized. Measurements Left ventricle Value Ref Right atrium continued Value Ref ALBERTO, LAX (L) 3.5 cm 3.8 - 5.2 ML dim, ES, A4C (H) 4.5 cm 2.6 - 4.4 ESD, LAX 2.3 cm 2.2 - 3.5 SI dim, ES, A4C 4.9 cm 3.4 - 5.3 FS, LAX 34 % 45 Estimated RAP 8 mm Hg --------- PW, ED, LAX 0.9 cm 0.6 - 0.9 FS 34 % Aortic valve Value Ref PW, ED 0.9 cm 0.6 - 0.9 Skye diam, ED 1.9 cm --------- E', lat skye, TDI (L) 9.1 cm/sec >=10.0 Peak v, S 1.31 m/sec -- ------- E/e', lat skye, 10 VTI, S 23.9 cm ----- ---- TDI Mean grad, S 4.0 mm Hg --------- E', med skye, TDI 9.4 cm/sec >=7.0 Peak grad, S 7.0 mm Hg -- ------- E/e', med skye, 10 LVOT/AV, VTI ratio 0.5 ----- ---- TDI E', avg, TDI 9.3 cm/sec Mitral valve Value Ref E/e', avg, TDI 10 <=14 Peak E 0.95 m/sec -- ------- Peak A 0.77 m/sec --------- LVOT Value Ref Decel time 211 ms --------- Peak george, S 0.76 m/sec Peak grad, D 3.6 mm Hg --------- VTI, S 12.0 cm Peak E/A ratio 1.2 --------- Peak grad, S 2 mm Hg Mean grad, S 1 mm Hg Pulmonic valve Value Ref Peak v, S 1.3 m/sec --------- Ventricular septum Value Ref Peak grad, S 7.0 mm Hg --------- IVS, ED (H) 1.0 cm 0.6 - 0.9 Aortic root Value Ref Right ventricle Value Ref Root diam 2.7 cm <3.7 ALBERTO, LAX 2.6 cm ALBERTO minor ax, (H) 4.3 cm 1.9 - 3.5 Ascending aorta Value Ref A4C mid AAo AP diam, S 2.8 cm --------- Left atrium Value Ref Aortic arch Value Ref AP dim, ES 3.00 cm 2.70 - Arch diam 1.9 cm --------- 3.80 ML dim, A4C 4.2 cm Decending aorta Value Ref SI dim, A4C 4.9 cm Magdi peak george 1.26 m/sec --------- Vol/bsa, ES, 1-p 24 ml/m^2 11 - 40 A4C Vol/bsa, ES, A/L 24 ml/m^2 16 - 34 Right atrium Value Ref SI dim, ES 4.9 cm 3.4 - 5.3 Legend: (L) and (H) ilan values outside specified reference range. Prepared and electronically signed by Olvin Edwards MD 11/02/2018 10:43
[2018-11-02] MEDS ORDERED: Regadenoson* 0.4 MG/5 ML SYRINGE ONE (13:02)
[2018-11-02 13:36] VITALS: BP 131/74
--- NOTE | 2018-11-02 21:22 | DS ---
CC: HERMELINDA Marino; Dr. Edwards * DISCHARGE SUMMARY: DATE OF ADMISSION: 11/02/18 DATE OF DISCHARGE: 11/02/18 PRIMARY CARE PROVIDER: HERMELINDA Marino DISPOSITION AT DISCHARGE: Home. CONDITION ON DISCHARGE: Stable. DISCHARGE DIAGNOSIS: Chest pain with intermediate probability cardiac stress test documented on 11/02/18 with mild area of reversible photopenia in the anterior wall on the nuclear images. SECONDARY DIAGNOSES: 1. Diabetes type 2, on insulin pump. 2. Hypertension. 3. Tachycardia, on metoprolol. 4. History of kidney stones. 5. History of chronic back pain. 6. History of migraines. 7. Anxiety disorder. MEDICATIONS AT DISCHARGE: Include: 1. Norvasc 2.5 mg daily just started. 2. Metoprolol tartrate 12.5 mg daily. 3. Mag-Ox 500 mg daily. 4. Lisinopril 10 mg b.i.d. 5. Insulin lispro via insulin pump as previously taken. 6. Hydrocodone with acetaminophen on a p.r.n. basis. 7. Flexeril 10 mg t.i.d. p.r.n. 8. BuSpar 10 mg b.i.d. 9. Aspirin 81 mg daily. LABORATORY DATA AND STUDIES PERFORMED DURING THE HOSPITAL STAY: Included: On 11/02/18, white blood cell count of 10.6, hemoglobin of 14.1, hematocrit of 40, and platelets of 354. D-dimer was below 200. Sodium was 135, potassium 3.5, chloride 102, carbon dioxide 22, BUN 15, creatinine was 0.67. The patient's hemoglobin A1c was 9.6. Troponins were 0. Triglycerides was 51, cholesterol total of 82, HDL 39, and LDL of 39. Transthoracic echocardiogram obtained on 11/02/18 showed EF of 55% to 60% with no significant valvular abnormalities. Nuclear portion of the patient's pharmacologic cardiac stress test, impression: "Reversible photopenia of the anterior wall suggestive of area of ischemia." The patient's TID index was 1.21 and EF was 91%. HOSPITALIZATION COURSE: Ms. Brunson is a 33-year-old obese female with history of diabetes, insulin dependent, who presented complaining of left-sided chest pain. The pain was localized in the left upper chest, goes to her shoulder , had been ongoing for 3 days prior to her presentation. It would changed when she moved her left arm. She denied any shortness of breath. She came into the ED for evaluation on the night of 11/01/18 and was placed for overnight observation. The patient's EKG although abnormal showing negative T waves in septal leads, has chronic changes. The patient's troponin has continued to be 0 throughout her hospital stay. Her chest pain continued to be present throughout her hospital stay. The patient also had point tenderness on physical evaluation in the area of the left upper chest palpation of the musculature. The patient's stress test showed small area of reversible photopenia in the anterior wall. I briefly discussed the case with Dr. Edwards who reviewed the studies and images and the EKG. It appears that the value of ischemia is very small. Her TID index is fine and her EF is within normal limits. Furthermore, the patient's chest pain is reproducible and appears to be muscular. At this point, we cannot fully rule out that the patient does not have a small vessel involvement/coronary artery disease, but at this point, we do not have enough data to justify cardiac catheterization. Once again, it does not appear that the patient's chest pain at this point is related to her abnormal stress test findings. The patient was educated about risk factor control. Her cholesterol was already very good, but she still needs to work on her diabetic control. Her hemoglobin A1c is above 9. The patient was educated about diet. She is going to be placed on a baby aspirin and a small dose of Norvasc for vasodilator properties and to follow up with her primary care provider in approximately 4 to 7 days. The patient is also recommended to follow up with cardiology department, Dr. Edwards, in 1 to 2 months. PHYSICAL EXAMINATION: At the time of discharge, blood pressure of 131/74, heart rate of 86 and regular, respiratory rate 16, oxygen saturation 99% on room air, temperature 97.8. General: The patient is a very pleasant 33-year- old female who is in no acute distress, alert, awake, and oriented x3. HEENT: Head: Atraumatic, normocephalic. Eyes: Pupils are equal, reactive to light and accommodation. Oropharynx is clear. Mucosa moist. Neck: Supple. No JVD. No bruits bilaterally. Cardiovascular: Regular rate and rhythm. No murmur. Respiratory: Clear to auscultation bilaterally. Abdomen: Soft, nontender. Bowel sounds are present in all 4 quadrants. Extremities: There is no edema. Pulses are +2 bilaterally. No clubbing or cyanosis. On neuro evaluation, speech is clear. Cranial nerves II through XII grossly intact. Motor strength is 5/5 bilaterally. Please note that on palpation of the patient's chest in the left upper chest, shoulder musculature, the patient has tenderness to palpation. The patient is going to be discharged home. Recommendation to follow up with primary care provider as previously mentioned. TIME SPENT: Approximately 35 minutes was spent on discharge of this patient, more than of that time was spent [id number] with the patient during the interview and physical exam. [id number]/[facility] #: [id number] MTDD
== END 2018-11-02 15:42 | disposition home or self-care (01) ==
LOC: ED 22:20 → MEDTELE 11-02 03:01
PROVIDERS: ADMIT Internal Medicine; ATTEND Internal Medicine
DX: R07.89 Other chest pain (principal); E11.9 Type 2 diabetes mellitus without complications; Z96.41 Presence of insulin pump (external) (internal); I10 Essential (primary) hypertension; R00.0 Tachycardia, unspecified; Z79.899 Other long term (current) drug therapy; Z87.442 Personal history of urinary calculi; G89.29 Other chronic pain; M54.9 Dorsalgia, unspecified; F41.9 Anxiety disorder, unspecified; Z79.82 Long term (current) use of aspirin; E66.9 Obesity, unspecified; Z86.79 Personal history of other diseases of the circulatory system
CPT/HCPCS: 36415; 71045; 78452; 80048; 80053; 80061; 83036; 83605; 84484; 84702; 85025; 85379; 85610; 85730; 93005; 93017; 93306; 99284; A9270-GY; A9502; C8929; G0378; J2785

== ENCOUNTER → 2019-01-07 08:02 | Day surgery (SDC) | payer OTHER ==
[~2019-01-07 08:02] MED LIST: Aspirin 81 mg CHEW TAB* 81 MG TAB.CHEW PO SCH; HYDROCODONE ACETAMIN PO SCH; Heparin 2 UNITS/ML IVPREMIX* 2,000 ML IV ONE; Heparin(*) 1000 UNIT/ML 10 ML VIAL CATH LAB IV ONE; Insulin LISPRO* 1 UNITS UNIT SUBCUT SCH; Iohexol 350 (CONTRAST) 200 ML MDV IV ONE; Lidocaine 1% INJ* 10 MG/ML 30 ML SDV ONE; Lisinopril TAB* 5 MG PO SCH; Metoprolol Tartrate TAB* 25 MG PO SCH; Midazolam* 1 MG/ML 5 ML VIAL (5 MG) ONE; NS 0.9% 1000 ML** 1,000 ML IV SCH; TIZANIDINE HCL 4 MG PO PRN; VERAPAMIL 2.5 MG/ML 2 ML VIAL ** 5 mg/2 ml ONE; amLODIPine TAB* 5 MG PO SCH; fentaNYL* 50 MCG/ML 2 ML VIAL (100 MCG VIAL) ONE; nitroGLYCERIN DRIP* 25,000 MCG/250 ML BTL ONE
[2019-01-07 14:23] VITALS: BP 125/76
--- NOTE | 2019-01-08 13:38 | CATH ---
CC: Dr. Looney; Dr. Phipps CATH REPORT: DATE OF CATH: 01/07/19 PRIMARY CARE PHYSICIAN: Dr. Looney. CHAIN SAW DRIVER: Dr. Phipps. PROCEDURES: Right radial artery access, bilateral selective coronary cineangiography, left heart cat heterization, left ventriculography. HISTORY: A 33-year-old woman with atypical angina with effort related precordial chest pressure with occasional radiation to the neck and the left arm, but also resting symptoms. In October, she had th e same symptoms lasting for hours with negative troponins. Subsequent myocardial perfusion imaging r eported an area of anterior wall ischemia. She was referred for coronary angiography. PROCEDURE ACCESS: Right radial artery. SHEATH: 6-F slender. MEDICATIONS: 1. Subcutaneous lidocaine. 2. IV Versed. 3. IV fentanyl. 4. Heparin 3000 units. 5. Verapamil 3 mg. 6. Nitroglycerin 300 mcg IA. DIAGNOSTIC CATHETERS: 5F TIG4, 5F pigtail. HEMODYNAMICS: Initial AO 128/81, LV 114/4, no aortic valve gradient on pullback. ANGIOGRAPHY: RCA: The RCA is dominant, moderate in size, supplies a small PDA and small posterolater al, the RCA has no stenosis. Left main: The left main is relatively short, has no stenosis. LAD: The LAD is moderate, extends past the apex, it supplies number of small diagonals, the LAD has no stenosis and minimal if any irregularity. Circumflex: The circumflex is large, nondominant, supplies a small first marginal, a large second ma rginal and ends with a small to moderate posterolateral, and circumflex has no stenosis. LV gram was performed on fluoroscopy was not stored, revealed a relatively small LV cavity, which was hyperdynamic without wall motion abnormality. During the LV gram, she had very frequent ventricular ectopy, LVEF is not measurable. CONCLUSION: 1. No obstructive coronary artery disease. 2. Normal left-sided hemodynamics. 3. Normal left ventricular systolic function with a small left ventricular cavity, of interest the p atient subjectively felt almost every PVC and felt palpitations and chest discomfort during the burst of ventricular ectopy during the ventriculogram. 4. Successful right radial artery access. [id number]/[facility] #: [id number]
== END | disposition home or self-care (01) ==
LOC: CHICATH 08:02
PROVIDERS: ATTEND Internal Medicine Cardiovascular Disease
DX: I20.8 Other forms of angina pectoris (principal); R94.39 Abnormal result of other cardiovascular function study; R07.9 Chest pain, unspecified; E11.8 Type 2 diabetes mellitus with unspecified complications; I49.3 Ventricular premature depolarization; I10 Essential (primary) hypertension; Z68.33 Body mass index [BMI] 33.0-33.9, adult; E78.5 Hyperlipidemia, unspecified; R60.9 Edema, unspecified; F17.210 Nicotine dependence, cigarettes, uncomplicated
CPT/HCPCS: 36415; 84702; 93458; 99156; 99157; J1644; J2250; J3010

== ENCOUNTER 2022-09-11 19:32 | Inpatient (IN) ==
[2022-09-11 19:57] LABS: ABS Eosinophils 0.4 10^3/uL (0.0-0.5); ABS Lymphocytes 1.8 10^3/uL (1.0-4.8); ABS Monocytes 0.4 10^3/uL (0.0-0.9); ABS Neutrophils 5.7 10^3/uL (1.5-7.6); Eosinophil % 5.3 %; Hematocrit 33.5 % (35-45); Hemoglobin 11.5 g/dL (11.5-14.3); Lymphocyte % 21.8 %; Mean Corpuscular Hemoglobin 31.9 pg (27-33); Mean Corpuscular Hgb Conc 34.4 g/dL (31-36); Mean Corpuscular Volume 92.8 fL (80-97); Mean Platelet Volume 8.5 fL (7.5-11.2); Platelet Count 358 10^3/uL (150-450); Red Blood Count 3.61 10^6/uL (3.63-4.92); Red Cell Distribution Width 13.1 % (12-17); White Blood Count 8.4 10^3/uL (3.8-11.8)
[2022-09-11 20:04] LABS: INR 1.2 (0.88-1.18)
[2022-09-11 20:16] LABS: Albumin 4.1 g/dL (3.2-5.2); Albumin/Globulin Ratio 1.1 (1-3); Calcium 10.2 mg/dL (8.6-10.3); Creatinine, Serum 2.67 mg/dL (0.51-0.95); Globulin 3.8 g/dL (2-4); Potassium 3.9 mmol/L (3.5-5.0); Total Bilirubin 0.2 mg/dL (0.2-1.0); Total Protein 7.9 g/dL (6.4-8.9); eGFR CKD-EPI 22.9 (>60)
[2022-09-11 21:31] LABS: High Sensitivity Troponin 1 Hr 3 pg/mL (<15)
[2022-09-11] MEDS: Lactated Ringers 1000 ml BAG 1,000 ML IV SCH ×2 (23:06→23:07)
[2022-09-12 00:17] LABS: Calcium 9.2 mg/dL (8.6-10.3); Creatinine, Serum 2.28 mg/dL (0.51-0.95); Potassium 3.8 mmol/L (3.5-5.0); eGFR CKD-EPI 27.7 (>60)
[2022-09-12] MEDS ORDERED: Lactated Ringers 1000 ml BAG 1,000 ML IV ONE (01:23)
[2022-09-12 02:34] LABS: Urine Appearance Clear; Urine Bilirubin Negative (Negative); Urine Blood Negative (Negative); Urine Color Straw; Urine Glucose Negative (Negative); Urine Ketones Negative (Negative); Urine Nitrite Negative (Negative); Urine Protein Negative (Negative); Urine Specific Gravity 1.003 (1.002-1.030); Urine Urobilinogen Negative (Negative)
[2022-09-12] MEDS ORDERED: Insulin LISPRO FOR INSULIN PUMP SUBCUT SCH (03:00)
[2022-09-12 05:47] LABS: ABS Eosinophils 0.5 10^3/uL (0.0-0.5); ABS Lymphocytes 2.7 10^3/uL (1.0-4.8); ABS Monocytes 0.6 10^3/uL (0.0-0.9); ABS Neutrophils 4.7 10^3/uL (1.5-7.6); ABS Nucleated RBC 0.02 10^3/ul; Eosinophil % 6.3 %; Hematocrit 28.5 % (35-45); Lymphocyte % 31.9 %; Mean Corpuscular Hemoglobin 31.7 pg (27-33); Mean Corpuscular Hgb Conc 35.1 g/dL (31-36); Mean Corpuscular Volume 90.4 fL (80-97); Mean Platelet Volume 8.1 fL (7.5-11.2); Nucleated Red Blood Cells % 0.3 /100 WBC (0.0-0.4); Platelet Count 298 10^3/uL (150-450); Red Blood Count 3.15 10^6/uL (3.63-4.92); Red Cell Distribution Width 13.1 % (12-17); White Blood Count 8.5 10^3/uL (3.8-11.8)
[2022-09-12 06:13] LABS: Calcium 9.4 mg/dL (8.6-10.3); Creatinine, Serum 1.92 mg/dL (0.51-0.95); Potassium 3.6 mmol/L (3.5-5.0)
[2022-09-12] MEDS ORDERED: INSULIN PUMP CONTROLLER SCH (07:30)
[2022-09-12] MEDS ORDERED: Lactated Ringers 1000 ml BAG 1,000 ML IV SCH (08:00)
[2022-09-12] MEDS ORDERED: Potassium EFFERVES 25 meq TAB PO ONE (11:25)
[2022-09-12 15:32] LABS: Calcium 9.8 mg/dL (8.6-10.3); Creatinine, Serum 1.64 mg/dL (0.51-0.95); Magnesium 1.6 mg/dL (1.9-2.7); eGFR CKD-EPI 41.1 (>60)
[2022-09-12 15:38] LABS: Potassium 4.2 mmol/L (3.5-5.0)
[2022-09-12 15:39] LABS: Phosphorus 2.9 mg/dL (2.5-5.0)
[2022-09-12] MEDS ORDERED: Magnesium Sulfate 2 gm BAG 2 GM/50 ML BAG IVPB ONE (15:47)
[2022-09-12] MEDS ORDERED: Albuterol HFA INHALER 8 gm MDI INH PRN (16:13)
[2022-09-12] MEDS ORDERED: Piperacillin/Tazobac ADVAN 3.375 GM in NS 0.9% 100 ml BAG 100 ML IV ONE (16:15)
[2022-09-12] MEDS ORDERED: Zosyn per Pharmacy NOTE FOLLOW UP SCH (17:00)
[2022-09-12] MEDS ORDERED: ZOSYN 3.375 GM Q8H per EXTENDED INFUSION IV SCH (21:30)
[2022-09-12] MEDS: Pantoprazole VIAL 40 MG VIAL IV SCH (22:05)
[2022-09-12] MEDS: Neomycin/Polym/Bacit TOP OINT 15 GM TOPICAL SCH (22:05)
[2022-09-12] MEDS: ZOSYN 3.375 GM Q8H per EXTENDED INFUSION IV SCH (22:10)
[2022-09-12 22:54] LABS: Hematocrit 29.4 % (35-45); Hemoglobin 10.5 g/dL (11.5-14.3); Mean Corpuscular Hemoglobin 32.9 pg (27-33); Mean Corpuscular Hgb Conc 35.8 g/dL (31-36); Mean Corpuscular Volume 91.9 fL (80-97); Mean Platelet Volume 8.4 fL (7.5-11.2); Platelet Count 282 10^3/uL (150-450); Red Blood Count 3.19 10^6/uL (3.63-4.92); Red Cell Distribution Width 12.8 % (12-17); White Blood Count 7.7 10^3/uL (3.8-11.8)
[2022-09-12 23:11] LABS: Calcium 9.4 mg/dL (8.6-10.3); Creatinine, Serum 1.42 mg/dL (0.51-0.95); Potassium 3.5 mmol/L (3.5-5.0); eGFR CKD-EPI 48.9 (>60)
[2022-09-13] MEDS: ZOSYN 3.375 GM Q8H per EXTENDED INFUSION IV SCH ×3 (05:38→21:09)
[2022-09-13 06:38] LABS: Hemoglobin 9.7 g/dL (11.5-14.3); Mean Corpuscular Hemoglobin 32.7 pg (27-33); Mean Corpuscular Hgb Conc 35.7 g/dL (31-36); Mean Corpuscular Volume 91.5 fL (80-97); Mean Platelet Volume 8.5 fL (7.5-11.2); Platelet Count 260 10^3/uL (150-450); Red Blood Count 2.95 10^6/uL (3.63-4.92); White Blood Count 6.4 10^3/uL (3.8-11.8)
[2022-09-13 06:55] LABS: Calcium 8.6 mg/dL (8.6-10.3); Creatinine, Serum 1.39 mg/dL (0.51-0.95); Magnesium 1.7 mg/dL (1.9-2.7); Potassium 3.6 mmol/L (3.5-5.0); eGFR CKD-EPI 50.1 (>60)
[2022-09-13] MEDS ORDERED: Magnesium Sulfate 2 gm BAG 2 GM/50 ML BAG IVPB ONE (07:44)
[2022-09-13] MEDS ORDERED: Lactated Ringers 1000 ml BAG 1,000 ML IV SCH (08:00)
[2022-09-13] MEDS: Neomycin/Polym/Bacit TOP OINT 15 GM TOPICAL SCH ×3 (10:02→19:16)
[2022-09-13] MEDS: Pantoprazole VIAL 40 MG VIAL IV SCH ×2 (10:02→21:09)
[2022-09-13] MEDS ORDERED: Potassium Chlor 20 meq TAB.ER PO ONE (11:21)
[2022-09-13] MEDS: Enoxaparin 40 MG/0.4 ML SYR SUBCUT SCH (13:31)
[2022-09-14] MEDS: ZOSYN 3.375 GM Q8H per EXTENDED INFUSION IV SCH (06:07)
[2022-09-14 06:15] LABS: ABS Eosinophils 0.3 10^3/uL (0.0-0.5); ABS Lymphocytes 2.4 10^3/uL (1.0-4.8); ABS Monocytes 0.3 10^3/uL (0.0-0.9); ABS Neutrophils 2.3 10^3/uL (1.5-7.6); Eosinophil % 6.2 %; Hematocrit 26.6 % (35-45); Hemoglobin 9.3 g/dL (11.5-14.3); Lymphocyte % 44.4 %; Mean Corpuscular Hemoglobin 32.4 pg (27-33); Mean Corpuscular Volume 92.5 fL (80-97); Mean Platelet Volume 8.3 fL (7.5-11.2); Platelet Count 258 10^3/uL (150-450); Red Blood Count 2.88 10^6/uL (3.63-4.92); White Blood Count 5.3 10^3/uL (3.8-11.8)
[2022-09-14 06:28] LABS: Calcium 8.3 mg/dL (8.6-10.3); Creatinine, Serum 1.17 mg/dL (0.51-0.95); Potassium 3.8 mmol/L (3.5-5.0); eGFR CKD-EPI 61.6 (>60)
[2022-09-14] MEDS ORDERED: Polyethylene Glycol 3350 17 GM PACKET ONE ×2 (07:38→08:55)
[2022-09-14 08:24] LABS: Magnesium 1.7 mg/dL (1.9-2.7)
[2022-09-14] MEDS: Pantoprazole VIAL 40 MG VIAL IV SCH (08:49)
[2022-09-14] MEDS: Neomycin/Polym/Bacit TOP OINT 15 GM TOPICAL SCH ×2 (09:21→20:39)
[2022-09-14] MEDS: Amoxicillin/Clavul 500/125 TAB (Augmentin 500 mg tab) PO SCH ×2 (13:48→20:45)
[2022-09-14] MEDS: Enoxaparin 40 MG/0.4 ML SYR SUBCUT SCH (13:50)
[2022-09-15 06:34] LABS: ABS Eosinophils 0.3 10^3/uL (0.0-0.5); ABS Lymphocytes 2.4 10^3/uL (1.0-4.8); ABS Monocytes 0.3 10^3/uL (0.0-0.9); ABS Neutrophils 2.4 10^3/uL (1.5-7.6); ABS Nucleated RBC 0.02 10^3/ul; Eosinophil % 4.6 %; Hematocrit 27.1 % (35-45); Hemoglobin 9.7 g/dL (11.5-14.3); Lymphocyte % 43.7 %; Mean Corpuscular Hemoglobin 32.3 pg (27-33); Mean Corpuscular Hgb Conc 35.6 g/dL (31-36); Mean Corpuscular Volume 90.8 fL (80-97); Mean Platelet Volume 7.9 fL (7.5-11.2); Nucleated Red Blood Cells % 0.3 /100 WBC (0.0-0.4); Platelet Count 258 10^3/uL (150-450); Red Blood Count 2.99 10^6/uL (3.63-4.92); Red Cell Distribution Width 12.9 % (12-17); White Blood Count 5.4 10^3/uL (3.8-11.8)
[2022-09-15 06:50] LABS: Calcium 8.6 mg/dL (8.6-10.3); Creatinine, Serum 1.06 mg/dL (0.51-0.95); Magnesium 1.6 mg/dL (1.9-2.7); Potassium 3.9 mmol/L (3.5-5.0); eGFR CKD-EPI 69.4 (>60)
[2022-09-15] MEDS: Amoxicillin/Clavul 500/125 TAB (Augmentin 500 mg tab) PO SCH ×3 (08:15→21:42)
[2022-09-15] MEDS ORDERED: Polyethylene Glycol 3350 17 GM PACKET PO ONE (08:20)
[2022-09-15] MEDS: Neomycin/Polym/Bacit TOP OINT 15 GM TOPICAL SCH ×2 (08:26→21:44)
[2022-09-15] MEDS ORDERED: Senna TAB 8.6 mg TAB PO PRN (09:10)
[2022-09-15] MEDS ORDERED: Magnesium Sulfate IV 3 GM in NS 0.9% 100 ml BAG 100 ML IVPB ONE (10:00)
[2022-09-15 10:35] LABS: TSH Ultra Thyroid Stim Horm 9.81 mcIU/mL (0.34-5.60)
[2022-09-15] MEDS ORDERED: Magnesium Hydroxide LIQ 30 ML UDC PO PRN (12:38)
[2022-09-15] MEDS: Enoxaparin 40 MG/0.4 ML SYR SUBCUT SCH (13:44)
[2022-09-15 17:06] LABS: High Sensitivity Troponin 1 Hr < 3 pg/mL (<15)
[2022-09-15 17:31] LABS: Urine Benzodiazepine Screen None Detected (None Detect); Urine Buprenorphine Screen Presumptive Positive (None Detect); Urine Cannabinoids Screen None Detected (None Detect); Urine Fentanyl Screen None Detected (None Detect); Urine Hydrocodone Screen None Detected (None Detect); Urine Opiates Screen None Detected (None Detect)
[2022-09-15] MEDS: Polyethylene Glycol 3350 17 GM PACKET PO SCH (21:42)
[2022-09-15] MEDS: Magnesium Hydroxide LIQ 30 ML UDC PO SCH (21:49)
[2022-09-16 06:14] LABS: ABS Eosinophils 0.2 10^3/uL (0.0-0.5); ABS Lymphocytes 2.1 10^3/uL (1.0-4.8); ABS Monocytes 0.3 10^3/uL (0.0-0.9); ABS Neutrophils 3.5 10^3/uL (1.5-7.6); ABS Nucleated RBC 0.01 10^3/ul; Eosinophil % 2.7 %; Hematocrit 30.5 % (35-45); Hemoglobin 10.7 g/dL (11.5-14.3); Mean Corpuscular Hemoglobin 31.9 pg (27-33); Mean Platelet Volume 8.2 fL (7.5-11.2); Nucleated Red Blood Cells % 0.1 /100 WBC (0.0-0.4); Platelet Count 293 10^3/uL (150-450); Red Blood Count 3.35 10^6/uL (3.63-4.92); Red Cell Distribution Width 12.8 % (12-17); White Blood Count 6.1 10^3/uL (3.8-11.8)
[2022-09-16 06:33] LABS: Calcium 8.7 mg/dL (8.6-10.3); Creatinine, Serum 1.08 mg/dL (0.51-0.95); Magnesium 2.1 mg/dL (1.9-2.7); Potassium 4.1 mmol/L (3.5-5.0); eGFR CKD-EPI 67.8 (>60)
[2022-09-16 08:29] LABS: Free T4 0.89 ng/dL (0.61-1.12)
[2022-09-16] MEDS: Polyethylene Glycol 3350 17 GM PACKET PO SCH (08:43)
[2022-09-16] MEDS: Amoxicillin/Clavul 500/125 TAB (Augmentin 500 mg tab) PO SCH ×2 (08:44→14:47)
[2022-09-16] MEDS: Magnesium Hydroxide LIQ 30 ML UDC PO SCH (08:45)
[2022-09-16] MEDS: Neomycin/Polym/Bacit TOP OINT 15 GM TOPICAL SCH (08:47)
[2022-09-16] MEDS ORDERED: Polyethylene Glycol 3350 17 GM PACKET PO SCH ×2 (09:00→21:00)
[2022-09-16] MEDS ORDERED: Polyethylene Glycol 3350 17 GM PACKET PO ONE (11:12)
[2022-09-16] MEDS ORDERED: Lactulose 30 ml UDC PO ONE (11:12)
[2022-09-16 14:31] VITALS: BP 132/74
[2022-09-16] MEDS: Enoxaparin 40 MG/0.4 ML SYR SUBCUT SCH (15:11)
[2022-09-16] MEDS ORDERED: Senna TAB 8.6 mg TAB PO SCH (21:00)
== END 2022-09-16 15:15 | disposition home or self-care (01) | DRG 469 ==
LOC: ED 19:32 → EDHOLD 19:32 → SUATTDRO 09-12 01:21 → EDHOLD 09-12 07:53 → MED 09-12 18:12
PROVIDERS: ADMIT Internal Medicine; ATTEND Internal Medicine